=== PATIENT | female | born 1940 | race Caucasian/White ===

== ENCOUNTER 2021-06-18 09:30 | Outpatient (RCR) | payer MEDICARE, OTHER, SELFPAY ==
--- NOTE | 2021-05-10 14:23 | PTOPEVAL ---
Thank you for referring Sandy Harding to [facility].? The patient is scheduled to be seen for therapy? 2x/week for 4-6 weeks. Please review, sign, date and return this plan of care WILBERT. I agree with and certify that the following plan of care is medically necessary. Referring Physician Date Admitting Provider: Attending Provider: Renetta Herman, Referring Provider: *PT Outpatient Evaluation Start: 05/10/21 09:56 Freq: Status: Active Protocol: Document 05/10/21 10:03 AW (Rec: 05/10/21 10:17 AW [id number]) Therapy Assessment Status Assessment Status Assessment Status Evaluation Outpatient Past Medical History Past Medical History Source of Past Medical History Patient Other History Hx Cancer Yes: L lumpectomy 14 years ago Evaluation Information Problem Diagnosis R LE radicular pain Onset ~1 year ago Additional Evaluation Detail Pt states that her pain started ~1 year ago but has gotten more frequent. She states that the pain starts at her low back and will travel down her R leg. Subjective Information aggravating factors: lifting Query Text:As Reported By Patient/ boxes, stairs (increased reps) Family , walking around grocery store causes some soreness at the end of day, uses ice at the end of the day goes sideways down the stairs due to recent pain Diagnostic Tests X-Rays For This Problem Yes: no results yet per pt report MRI For This Problem Yes: no results yet per pt report Pain Assessment Timing of Pain Assessment Timing of Pain Assessment Pre-Treatment Pain Scale Pain Scale Used Numeric (1 - 10) Self Report Pain Assessment Lower Back Reported Pain Level 3 Pain Description Aching Pain Score Pain Score 3: Self Report Interventions Used Interventions Used By Clinicians Exercise Lower Extremity Range of Motion General Lower Extremity Range of Motion Gross Lower Extremity Range of Motion hip flexion limited due to Comments pain bilaterally Lower Extremity Muscle Strength Testing General Lower Extremity Strength Gross Lower Extremity Strength 4+/5 B with the exception of hip extension which is 3/5. Muscle Length Testing Muscle Length Testing Piriformis w/Hip Neutral (R) Moderate Tightness,(L) Moderate Tightness Left Hamstring Length -22 Query Text:(90
--- NOTE | 2021-06-25 09:00 | PCPTNOTE ---
Admitting Provider: Attending Provider: Renetta Herman, Patient:Sandy Harding Date of :1940 PHYSICAL THERAPY DISCHARGE SUMMARY Sandy has been seen for 6 PT visits since initial evaluation. She has demonstrated improvements in her overall strength and mobility and reports that she feels comfortable being discharged from skilled PT at this time. WOMAC score at discharge: 6.25%, compared to 44% at initial evaluation. She reports that she has not been having any pain but does have muscle fatigue after doing a lot of activity such as grocery shopping and carrying objects up/down the stairs. She continues to have B hip extension weakness and was educated on performing exercises daily to continue to improve her strength and endurance. She was invited to call with any questions/concerns regarding HEP. The goals have been partially met. Thank you for referring this patient to [facility]. Please review, sign, date and return this discharge summary WILBERT. I have been updated about the patient's current status and I agree with discharge from the above service at this time. Referring Physician Date
== END 2021-07-04 08:16 | disposition home or self-care (01) ==
LOC: ANHHIPT 09:30
PROVIDERS: PCP Neurological Surgery; Visit Provider Neurological Surgery
DX: M79.604 Pain in right leg (principal)
CPT/HCPCS: 97110; 97140; 97162; 97530

== ENCOUNTER 2024-11-15 08:45 | Outpatient (CLI) | payer MEDICARE, SELFPAY ==
[2024-11-15 10:48] LABS: Prothrombin Time 13.2 Seconds (11.1-14.7)
[2024-11-15 10:49] LABS: Partial Thromboplastin Time 28.7 Seconds (22.3-36.8)
[2024-11-15 11:16] LABS: Urine Cotinine NEGATIVE
== END 2024-11-15 08:46 | disposition home or self-care (01) ==
PROVIDERS: Anesthesiology; PCP Physician Assistant Medical; Visit Provider Orthopaedic Surgery
DX: M17.11 Unilateral primary osteoarthritis, right knee (principal); N18.31 Chronic kidney disease, stage 3a; Z01.812 Encounter for preprocedural laboratory examination
CPT/HCPCS: 36415; 80307; 85610; 85730; 87081

== ENCOUNTER 2024-11-17 13:51 | Outpatient (CLI) | payer MEDICARE, SELFPAY ==
--- NOTE | ~2024-11-17 | US_ITS ---
Renal-Bladder ultrasound Clinical History: Chronic kidney disease Technique: Real-time sonographic imaging of the kidneys and urinary bladder was performed. Findings: The right kidney measures 10.8 cm in length and the left kidney measures 9.8 cm. There is n o hydronephrosis. 15 mm nonobstructing right renal stone present. Renal cortical echogenicity is with in normal limits. No renal mass lesion is identified. The urinary bladder is moderately distended at the time of this exam. No intraluminal echoes are iden tified. No abnormal wall thickening is seen. Impression: 15 mm nonobstructing right renal stone. Reviewed, dictated and finalized at location . Impression: 15 mm nonobstructing right renal stone.
== END 2024-11-17 13:52 | disposition home or self-care (01) ==
LOC: MICIMG 13:52
PROVIDERS: PCP Physician Assistant Medical; Visit Provider Internal Medicine Nephrology
DX: N18.31 Chronic kidney disease, stage 3a (principal); N20.0 Calculus of kidney
CPT/HCPCS: 76775

== ENCOUNTER 2024-11-22 09:56 | Outpatient (CLI) | payer MEDICARE, SELFPAY ==
--- NOTE | ~2024-11-22 | NM_ITS ---
EXAMINATION: NM priscilla stress w perfusion DATE: 11/23/2024 7:20 CDT INDICATION: Preprocedural cardiac examination TECHNIQUE: Rest images were obtained following intravenous administration of 10.2 mCi Tc99m tetrofosm in (Myoview). The patient was infused intravenously with Lexiscan (regadenoson). Then, 32.4 mCi Tc99m tetrofosmin (Myoview) was administered intravenously, and stress images were obtained. Data was bridget nstructed into short axis and horizontal and vertical long axis SPECT images. Gated SPECT images were also obtained. COMPARISON: None. FINDINGS: There is a moderate-sized perfusion abnormality of the lateral wall extending to the apex w hich is partially reversible along its margin.. There is no segmental wall motion abnormality. Left ventricular ejection fraction measures 75%. IMPRESSION: 1. Moderate-sized partially reversible perfusion abnormality centered in the lateral wall, consistent with infarction. 2. Normal left ventricular ejection fraction measuring 75%. Reviewed, dictated and finalized at location A. IMPRESSION: 1. Moderate-sized partially reversible perfusion abnormality centered in the la teral wall, consistent with infarction. 2. Normal left ventricular ejection fraction measuring 75%.
--- OUTSIDE RECORDS SUMMARY | 2024-11-22 10:03 | XMS_ITS | Continuity of Care Document ---
Author Organization [employer] [facility] Address [address] [place] [address] Phone Care Team Providers Care Investment Broker Name Role Phone Ximena García Unavailable Unavailable [...] Providers Copied on Encounter Office/outpat ient Visit, [facility], [address] [place] [address] [address], [place], [place], [address], tel:[phone] [facility] No Information 9-201 0 Raquel Rich [address] , [address], [place], [place], [facility], . tel:[phone] Office/outpat ient Visit, [facility], [address] [place] [address] [address], [place], [place], [address], tel:[phone] [facility] No Information -201 0 Raquel Rich [address] , [address], [place], [facility], . tel:[phone] Referring Provider: Ximena Kidd, [address], [place], [facility]. tel:[phone] [facility], [address] [place] [address] [address], [place], [place], [address], tel:[phone] [facility] No Information 3-201 0 Raquel Rich [address] , [address], [place], [facility], . tel:[phone] Referring Provider: Ximena Kidd, [address], [place], [facility]. tel:[phone] Office/outpat ient Visit, [facility], [address] [place] [address] [address], [place], [place], [address], tel:[phone] [facility] No Information Feb-2 0-200 9 Raquel Rich [address] , [address], [place], [facility], . tel:[phone] [facility], [address], [place], [place], [address], [place] tel:[phone] [facility] No Information 9 Raquel Bueno. [address] , [address], [place], [facility], . tel:[phone] Referring Provider: Ximena Kidd, [address], [place], [facility]. tel:[phone] [facility], [address] [place] [address] [address], [place], [place], [address], [place] tel:[phone] [facility] No Information 9 Raquel Bueno. [address] , [address], [place], [facility], . tel:[phone] Referring Provider: Ximena Kidd, [address], [place], [facility]. tel:[phone] [facility], [address], [place], [place], [address], [place] tel:[phone] [facility] No Information 9 Raquel Bueno. [address] , [address], [place], [facility], [place]. tel:[phone] Referring Provider: Ximena Kidd, [address], [place], [facility]. tel:[phone] Office/outpat ient Visit, [facility], [address], [place], [place], [address], [place] tel:[phone] [facility] No Information 8 Raquel Bueno. [address] , [address], [place], [facility], [place]. tel:[phone] [facility], [address], [place], [place], [address], [place] tel:[phone] [facility] No Information 200 8 Raquel Bueno. [address] , [address], [place], [facility], . tel:[phone] Referring Provider: Ximena Kidd, [address] [facility] [address], [place], [facility]. tel:[phone] [facility], [address] [place] [address] [address], [place], [place], [address], [place] tel:[phone] [facility] No Information 8 Raquel Bueno. [address] , [address], [place], [facility], [place]. tel:[phone] Referring Provider: Ximena Kidd, [address] [facility] [address], [place], [facility]. tel:[phone] [facility], [address], [place], [place], [address], [place] tel:[phone] [facility] No Information 8 Raquel Bueno. [address] , [address], [place], [facility], [place]. tel:[phone] Referring Provider: Xmiena Kidd, [address] [facility] [address], [place], [facility]. tel:[phone] Office/outpat ient Visit, Est [facility], [address], [place], [place], [address], [place] tel:[phone] [facility] No Information 2200 7 Raquel Bueno. [address] , [address], [place], [facility], [place]. tel:[phone] [facility], [address], [place], [place], [address], [place] tel:[phone] [facility] No Information 7 Raquel Bueno. [address] , [address], [place], [address], . tel:[phone] Referring Provider: Ximena Kidd, [address], [place], [facility]. tel:[phone] [facility], [address], [place], [place], [address], tel:[phone] [facility] No Information 7 Raquel Bueno. [address] , [address], [place], [address], . tel:[phone] Family History Family Member Type Diagnosis Age At Onset No Information Payers Payer name Insurance type Covered democrat ID Authoriza tion(s) [place] CI [id number] [facility] CI [id number] Social History Type Description Quantity Date Captured [...]
--- NOTE | 2024-11-22 10:16 | EST_ITS ---
Patient Info Name: Sandy Harding Age: 84 years : 1940 Gender: Female Ht: 61 in Wt: 146 lbs BSA: 1.71 m2 HR: 72 bpm BP: 166 / 83 mmHg Exam Date: 11/22/2024 10:16 AM Patient Status: O Admit Date: 11/22/2024 Exam Type: CA stress priscilla w NM A regadenoson stress test was performed. Staff Referring Physician: Richard Noble DO Attending Provider: Richard Noble DO Exercise Technologist: Stephenie Isabel Exercise Physician: Richard Noble DO Summary 1. 1. Negative lexiscan stress test for ischemic ST changes by ECG criteria. 2. 2. Baseline hypertension. 3. 3. Nuclear scan to follow and will be reported separately. Please correlate with it. 4. 4. Patient informed of the above results. Protocol: Lexiscan Stress ECG Details Stage: REST Duration (min): 0 min : 28 sec HR (bpm): 68 SBP (mmHg): --- DBP (mmHg): --- Stage: REST Duration (min): 6 min : 25 sec HR (bpm): 70 SBP (mmHg): 166 DBP (mmHg): 83 Stage: STAGE 1 Duration (min): 1 min : 0 sec HR (bpm): 104 SBP (mmHg): 206 DBP (mmHg): 72 Stage: RECOVERY Duration (min): 1 min : 0 sec HR (bpm): 95 SBP (mmHg): 206 DBP (mmHg): 72 Stage: RECOVERY Duration (min): 2 min : 0 sec HR (bpm): 90 SBP (mmHg): 206 DBP (mmHg): 72 Stage: RECOVERY Duration (min): 3 min : 0 sec HR (bpm): 90 SBP (mmHg): 206 DBP (mmHg): 72 Stage: RECOVERY Duration (min): 3 min : 46 sec HR (bpm): 88 SBP (mmHg): 177 DBP (mmHg): 74 Rest HR: 70 bpm Peak HR: 104 bpm Rest Sys BP: 166 mmHg Peak Sys BP: 206 mmHg Max Pred HR: 138 bpm % Max Pred HR: 75 % Target HR: 117 bpm Max RPP: 21,424 bpm*mmHg Termination Reason: Completed protocol Cardiac Symptoms: Shortness of breath Total Time: 1 min : 0 sec Rest Holman BP: 83 mmHg Peak Holman BP: 72 mmHg Total Dose: 0.4 mg Resting ECG Sinus rhythm. Stress ECG No ST changes. Arrhythmias None. Report Signatures
== END 2024-11-22 09:57 | disposition home or self-care (01) ==
PROVIDERS: PCP Physician Assistant Medical; Visit Provider Internal Medicine Cardiovascular Disease
DX: Z01.810 Encounter for preprocedural cardiovascular examination (principal); R94.39 Abnormal result of other cardiovascular function study
CPT/HCPCS: 78452; 93017; A9502; J2785

== ENCOUNTER 2024-12-30 11:38 | Outpatient (CLI) | payer MEDICARE, SELFPAY ==
--- OUTSIDE RECORDS SUMMARY | 2024-12-30 11:53 | XMS_ITS | Continuity of Care Document ---
Author Organization [facility] Address [address] [place] [address] Phone Care Team Providers Care Hydroelectric Production Technician Name Role Phone Ximena García Unavailable Unavailable [...] Providers Copied on Encounter Office/outpat ient Visit, [facility], [address] [place] [address] [address], [place], [place], [id number], tel:[phone] [facility] No Information 9-201 0 Raquel Rich [address] , [address], [place], [place], [facility], . tel:[phone] Office/outpat ient Visit, [facility], [address] [place] [address] [address], [place], [place], [id number], tel:[phone] [facility] No Information -201 0 Raquel Rich [address] [facility] , [address], [place], [place], [facility], . tel:[phone] Referring Provider: Ximena Kidd, [address] [facility] [address], [place], [place], [facility]. tel:[phone] [facility], [address] [place] [address] [address], [place], [place], [id number], tel:[phone] [facility] No Information 3-201 0 Raquel Rich [address] [facility] , [address], [place], [place], [facility], . tel:[phone] Referring Provider: Ximena Kidd, [address], [place], [facility]. tel:[phone] Office/outpat ient Visit, [facility], [address] [place] [address] [address], [place], [place], [address], tel:[phone] [facility] No Information Feb-2 0-200 9 Raquel Rich [address] [facility] , [address], [place], [place], [facility], . tel:[phone] [facility], [address], [place], [place], [address], [place] tel:[phone] [facility] No Information 9 Raquel Bueno. [address] , [address], [place], [facility], . tel:[phone] Referring Provider: Ximena Kidd, [address], [place], [facility]. tel:[phone] [facility], [id number] [place] [address] [address], [place], [place], [id number], [place] tel:[phone] [facility] No Information 9 Raquel Bueno. [address] , [address], [place], [facility], . tel:[phone] Referring Provider: Ximena Kidd, [address], [place], [facility]. tel:[phone] [facility], [address], [place], [place], [address], [place] tel:[phone] [facility] No Information 9 Raquel Bueno. [address] , [address], [place], [facility], [place]. tel:[phone] Referring Provider: Ximena Kidd, [address], [place], [facility]. tel:[phone] Office/outpat ient Visit, [facility], [address], [place], [place], [address], [place] tel:[phone] [facility] No Information 8 Raquel Bueno. [address] , [address], [place], [facility], [place]. tel:[phone] [facility], [address], [place], [place], [address], [place] tel:[phone] [facility] No Information [address] Raquel Bueno. [address] [facility] , [address], [place], [facility], . tel:[phone] Referring Provider: Ximena Kidd, [address] [facility] [address], [place], [facility]. tel:[phone] [facility], [address] [place] [address] [address], [place], [place], [address], [place] tel:[phone] [facility] No Information 8 Raquel Bueno. [address] [facility] [address] , [address], [place], [facility], [place]. tel:[phone] Referring Provider: Ximena Kidd, [address] [facility] [address], [place], [facility]. tel:[phone] [facility], [address], [place], [place], [address], [place] tel:[phone] [facility] No Information 8 Raquel Bueno. [address] [facility] [facility] [address] [address] , [address], [place], [facility], [place]. tel:[phone] Referring Provider: Ximena Kidd, [address] [facility] [address], [place], [facility]. tel:[phone] Office/outpat ient Visit, Est [facility], [address], [place], [place], [address], [place] tel:[phone] [facility] No Information [address] Raquel Bueno. [address] [facility] [facility] [address] [address] , [address], [place], [facility], [place]. tel:[phone] [facility], [address], [place], [place], [address], [place] tel:[phone] [facility] No Information 7 Raquel Bueno. [address] [facility] [facility] [address] , [address], [place], [address], . tel:[phone] Referring Provider: Ximena Kidd, [address], [place], [facility]. tel:[phone] [facility], [address], [place], [place], [id number], tel:[phone] [facility] No Information 7 Raquel Bueno. [address] [facility] [address] , [address], [place], [address], . tel:[phone] Family History Family Member Type Diagnosis Age At Onset No Information Payers Payer name Insurance type Covered libertarian ID Authoriza tion(s) [place] [id number] [facility] CI [id number] Social History Type Description Quantity Date Captured [...]
--- OUTSIDE RECORDS SUMMARY | 2024-12-30 11:53 | XMS_ITS | Clinical Summary ---
Author Organization [facility] Address [facility] [place] [address] Care Team Providers Care Internet Marketing Strategist Name Role Phone Cherie Cruz PA-C Primary Care Provider [phone]- [phone] Family History Medical History Relation Comments Breast [...] Recently Relevant to Health Maintenance Insurance MEDICARE [facility] HEALTH AND LIFE INSURANCE [facility] Care Teams Internet Marketing Strategist Relationship Specialty Start Date End Date Cherie Cruz PA-C [address] [place] [address] [address] [place] [address] PCP - General PHYSICIAN BILL RECAPITULATION CLERK 08/02/22
[2024-12-30 15:10] LABS: Hemoglobin A1C 6.5 % (<5.7)
== END 2024-12-30 11:39 | disposition home or self-care (01) ==
PROVIDERS: PCP Physician Assistant Medical; Visit Provider Orthopaedic Surgery
DX: M17.11 Unilateral primary osteoarthritis, right knee (principal); Z01.818 Encounter for other preprocedural examination
CPT/HCPCS: 36415; 83036; 86850; 86900; 86901

== ENCOUNTER 2025-01-07 13:24 | Inpatient (IN) | payer MEDICARE, SELFPAY ==
--- NOTE | 2024-11-15 08:54 | PC.NURSE ---
Report to the Outpatient Waiting Room, entrance under the green pavilion located off [facility], at time ___6 am____ on date __12/02/24 . Planned Procedure Time: _7:30 am .? Time changes happen often and if your time is changed the preop area will call you the afternoon before. - You and your visitor will be asked to self-screen and do not enter if you have any COVID symptoms. Please call surgeon if you need to reschedule. - A mask is optional within the hospital at this time. Patients may have clear liquids (water, carbonated beverages, clear teas, apple juice) until 3 hours prior to surgery ( 4:30 am) with a maximum of 20 ounces. - No food from midnight until time of surgery and no smoking, or chewing tobacco (or any form of nicotine). No chewing gum, candy or mints. - I Take only the following medications with a SIP of water on the morning of surgery: ___AMLODIPINE DO NOT STOP ANY OF YOUR OTHER PRESCRIPTION MEDICATIONS PRIOR TO SURGERY EXCEPT THE FOLLOWING Hold all vitamins and supplements for 3 days per anesthesiologist.LAST DOSE 11/28/24 Medications to discontinue per physician NONE MAY TAKE TYLENOL IF NEEDED FOR PAIN Please no make-up, nail macedonian, hairspray, perfume, deodorant, or body powder the day of surgery.? No jewelry (including any body piercings) or valuables the day of surgery, leave them at home.? Please take a shower or bath the night before, or the morning of, surgery with an antibacterial soap.? Wear comfortable, loose fitting clothing.? Children are encouraged to wear pajamas. - Jewelry must be removed prior to entering the operating room.? Rings and piercings that are not removed may be cut off. - The hospital will not accept responsibility for valuables.? - Please leave all valuables, including medications, at home the day of surgery. If you are going home after surgery, a licensed mechanic driver must drive you home.? - NO public transportation without another adult if you receive anesthesia. - We recommend that an adult stay with you for 24 hours following discharge. - We also recommend that you do not drive, make important decision, drink alcoholic beverages, or take any drugs that were not prescribed by your health care provider for at least 24 hours after your discharge time. For Pediatric surgeries, we recommend two adults accompany the child home. Follow any additional instructions given to you from your surgeon. VERBAL AND WRITTEN instructions given to _PATIENT_AND SPOUSE and asked if any additional questions and then verbalized understanding. Patient advised to call surgeon office or pre surgery nurse liaison [phone] if any additional questions.
[2024-11-15 08:57] VITALS: BMI 28.3
[2024-11-15 09:48] VITALS: BP 141/68; PULSE 70; RESP 18; TEMP 36.7; O2SAT 98
--- OUTSIDE RECORDS SUMMARY | 2024-12-02 01:06 | XMS_ITS | Data Portability ---
Author Organization [place] [facility] [employer], Main Office Address [address] [place] [address] Care Team Providers Care Deputy Clerk Name Role Phone GEETA MUNOZ Primary Care Provider GEETA MUNOZ Referring Provider [phone] Assessment Encounter Date Assessment Date Assessment LastModified by Organization Details LastModified Time 09/02/2022 09/02/2022 HPI: Patient returns. She is here for cortisone injection both her knees. Last shots 3 months ago. She has moderate medial compartment osteoarthritis in the right knee and fozx-lw-jknlfhcs in the left. She gets good relief from the injections. Physical exam: 82-year-old female alert pleasant. She has mild effusions of both knees. Range of motion is from 0-135 degrees bilaterally. Mild tenderness over both medial joint lines. ChloraPrep was used on skin 20 mg Kenalog and 3 cc of 0.5% ropivacaine was injected into both knees. Risk infection discussed. Impression: 82-year-old female who has osei-qu-vxnyvkeb medial compartment osteoarthritis in both knees. She continues to good relief from injections. She will call when she feels she needs additional injections. Not available 09/02/2022 18:06:41 01/08/2023 01/08/2023 Patient returns. She would like cortisone shots in her knees again. She has been noticing more symptoms over the last month. She last had cortisone injections mid August. Her symptoms are anteromedial knee pain on both sides. She remains active. She mows her lawn with a push more. On exam today she is 5 ft 1 in in height 164 lb BMI of 31. She rates her pain at 4/10. She has range of motion of both knees from 5-135 degrees today mild tenderness over both medial joint lines. Risk of side effects including risk of infection were discussed. Affect her blood sugars may go up for a few days was discussed. After ChloraPrep prep, 20 mg of Kenalog and 4 cc 0.5% ropivacaine were injected into both knees out difficulty. She would like to follow-up again on an as-needed basis. [email or web address] Not available 01/08/2023 19:30:27 05/02/2023 05/02/2023 HPI: Patient returns. She is here for cortisone injection both her knees. Last shot was 4 months ago. She is getting about 3 months good relief from the injections. She has moderately severe medial compartment osteoarthritis the right knee and moderate in the left. She wished to have additional injections today. Physical exam: 83-year-old female alert pleasant. She has range of motion of 0-135 degrees bilaterally. Mild tenderness over both medial joint lines palpation. No lateral joint line tenderness. No increased swelling in either lower extremity. She is walking well today without limp or assistance. After ChloraPrep used on skin 20 mg Kenalog and 3 cc of% ropivacaine was injected into both knees. Risk infection discussed. Impression: 83-year-old female has right greater than left medial compartment osteoarthritis in her knees. Shots continue to give her good benefit. She will call when she feels she needs additional injection. Not available 05/02/2023 15:40:18 Plan of Treatment Reminders Order Date Submit Date Provider Last Modified By Organization Details Last Modified Time Details Appointments None recorded. Lab None recorded. Referral None recorded. Procedures injection/a spiration joint/bursa (PROC) - in office procedure, administere d by provider 2022 023 In-Office Order, Internal Use Only DO Not Attach Compendium DO Not Attach Compendium, Do Not Delete/merge, [id number] 14:17:47 injection/a spiration joint/bursa (PROC) - in office procedure, administere d by provider 2022 023 In-Office Order, Internal Use Only DO Not Attach Compendium DO Not Attach Compendium, Do Not Delete/merge, [id number] 3 11:13:20 injection/a spiration joint/bursa (PROC) - in office procedure, administere d by provider 2022 023 [email or web address] In-Office Order, Internal Use Only DO Not Attach Compendium DO Not Attach Compendium, Do Not Delete/merge, [id number] 16:55:05 Surgeries None recorded. Imaging XR, knee 2022 023 [email or web address] [facility] [place], [address], [place], [address], 3 09:28:14 Medication Orders Kenalog 10 mg/mL suspension for injection 2022 023 [place] [address], [address] [place] [address], [address], 3 15:45:52 ropivacaine (PF) 5 mg/mL (0.5 %) injection solution 2022 023 [place] [address], [address] [place] [address], [address], 3 15:45:52 Kenalog 10 mg/mL suspension for injection 2022 023 [place] [address], [address] [place] [address], [address], 3 12:57:24 ropivacaine (PF) 5 mg/mL (0.5 %) injection solution 2022 023 [place] [address], [address] [place] [address], [address], 3 12:57:24 Kenalog 10 mg/mL suspension for injection 2022 023 [place] [address], [address] [place] [address], [address], 3 10:50:57 ropivacaine (PF) 5 mg/mL (0.5 %) injection solution 2022 023 [email or web address], [address], [place], [address], 10:50:57 Patient TargetsNo targets recorded. Patient InstructionsNo instructions recorded. Reason for Referral None Reported. Results Created Date Observation Date Name Description Value Unit Range Abnormal Flag Note LastModifiedBy Organization Detail LastModifiedTime 12/13/19 22 XR, knee No observ ation record ed. [id number] [facility] [place] [address], [place], [address], 07/17/2022 15:56:07 01/09/20 23 XR, knee No observ ation record ed. [email or web address] [facility] [place] [address], [place], [address], 01/08/2023 19:28:41 Result Notes None recorded. Problems Name Problem SNOMED Code Status Onset Date Resolution Date Notes Provider Name and Address Organization Details Recorded Time Osteoarthr itis of knee 431176567 Active Not Available [facility] 3 15:54:51 Osteoarthr itis 831328259 Active 2021 Not Available [facility] 3 15:54:51 Bilateral osteoarthr itis of knees 4232131273884 07 Active 2022 LUANNE Hewitt, [place] [facility] 3 16:53:48 Problem Notes None recorded. Procedures Surgical History Date Name Laterality Status Provider Name and Address Organization Details Recorded Time 8 Unlisted procedure breast completed Not Available [facility] 07/17/2022 15:54:10 8 Breast Biopsy completed Not Available [facility] 2022 15:54:10 0 Ingrown Toenail completed Not Available [facility] 07/17/2022 15:54:10 Imaging Results None recorded. Procedure Notes None recorded. Medical Equipment None Reported. Medications Name Sig Start Date Stop Date Status Note LastModified by Organization Details LastModified Time cyclobenzap rine 10 mg tablet active Not Available Not Available Not Available latanoprost 0.005 % eye drops INSTILL 1 DROP INTO EACH EYE AT BEDTIME active Not Available Not Available No t Available anastrozole 1 mg tablet 08/02 completed Not Available Not Available Not Available amlodipine 2.5 mg tablet 08/02 completed Not Available Not Available Not Available amlodipine 5 mg tablet TAKE 1 TABLET BY MOUTH ONCE DAILY active Not Available Not Available No t Available Kenalog 10 mg/mL suspension for injection in office 2022 active NDC: 0003- 0494- 20 Not Available Not Available Not Available meclizine 25 mg tablet TAKE 1 TABLET BY MOUTH THREE TIMES DAILY NEEDED active Not Available Not Available No t Available Xylocaine 20 mg/mL (2 %) injection solution In office injection administe red by the provider 05/29 completed Not Available Not Available Not Available losartan 100 mg tablet TAKE 1 TABLET BY MOUTH ONCE DAILY active Not Available Not Available No t Available metformin ER 500 mg tablet,exte nded release 24 hr TAKE 2 TABLETS BY MOUTH TWICE DAILY active Not Available Not Available No t Available Denta 5000 Plus 1.1 % cream USE AFTER BRUSHING AND FLOSSING, BRUSH ON ONCE DAILY IN THE EVENING FOR 1 MINUTES. DO NOT EAT/DRINK FOR 30 MINUTES AFTER USE. active Not Available Not Available No t Available rosuvastati n 5 mg tablet TAKE 1 TABLET BY MOUTH ONCE DAILY active Not Available Not Available No t Available Lehr 3 2020 active Not Available Not Available Not Avai lable Super B Complex-Vit hansen C 2020 active Not Available Not Available Not Avai lable lidocaine (PF) 10 mg/mL (1 %) injection solution In office injection administe red by the provider 08/08 completed NDC: 0409- 4276- 17 Not Available Not Available Not Available lidocaine (PF) 5 mg/mL (0.5 %) injection solution In office injection administe red by the provider 05/29 completed Not Available Not Available Not Available Travatan Z 0.004 % eye drops INSTILL 1 DROP INTO EACH EYE IN THE EVENING 08/02 completed Not Available Not Available Not Available hydrochloro thiazide 12.5 mg tablet TAKE 1 TABLET BY MOUTH ONCE DAILY active Not Available Not Available No t Available [facility] Bi-Flex 2020 active Not Available Not Available Not Avai labhelene ropivacaine (PF) 5 mg/mL (0.5 %) injection solution in office 2022 active Not Available Not Available Not Avai labhelene Vitals Date Recorded Body height Provider Name an d Address Organization Details Last Updated DateTime 05/29/2022 157.48 cm Not Available [facility] 15:54:37 Date Recorded Body height Provider Name an d Address Organization Details Last Updated DateTime 09/02/2022 157.48 cm Shandra Son Vin [employer] 09/02/2022 16:53:27 Date Recorded Body mass index (BMI) Body height Body weight Provider Name and Address Organization Details Last Updated DateTime 12/12/2021 30 kg/m2 157.48 cm 69879.15 g Not Available [facility] 07/17/2022 15:54:38 Date Recorded Body height Body mass index (BMI) Body weight Provider Name and Address Organization Details Last Updated DateTime 01/08/2023 154.94 cm 31 kg/m2 01632.15 g Shandra Son [facility] [employer] 01/08/2023 11:15:58 Date Recorded Body height Provider Name an d Address Organization Details Last Updated DateTime 05/02/2023 154.94 cm Shandra Huy [facility] [employer] 05/02/2023 14:16:18 Social History Question Answer Notes LastModified by Organizat ion Details LastModified Time Tobacco Smoking Status Never Smoker Not Available [facility] 07/17/2022 15:54:01 What Was The Date Of Your Most Recent Tobacco Screening? 08/11/2020 [id number] Information not available 07/17/2022 Sex: Unknown Functional Status Question Answer Note LastModified by Organization D etails LastModified Time What is your level of alcohol consumption? None [email or web address] Information not available 01/08/2023 Mental Status None recorded. Family History Relationship Description Onset Age of this Age Resolved Age Notes LastModified by Organization Details LastModified Time Sister Family history of malignant neoplasm [id number] Not available 07/17/2022 15:54:11 Brother Diabetes mellitus [id number] Not available 07/17/2022 15:54:11 Medical History Condition Response DIABETES, TYPE CANCER: SPECIFY Y Gynecological HistoryNo gynecological history recorded. Obstetrics History GPAL:G 0 P 0 0 0 0 Past Encounters Encounter ID Performer Location Encounter Start Date Encounter Closed Date Diagnosis/Indication Diagnosis SNOMED-CT Code Diagnosis ICD10 Code Diagnosis Note [id number] Zi Andersen MD [facility] [place] [address] [place] [address] 08/11/2020 00:00:00 08/11/2020 11:29:33 [id number] MD KAILEY Noel_[facility] [place] [address] [place] [address] 12/25/2020 00:00:00 12/25/2020 15:05:14 [id number] MD KAILEY Noel_[facility] [place] [address] [place] [address] 03/16/2021 00:00:00 03/17/2021 10:02:22 [id number] Zi Andersen MD [facility] [place] [address] [place] [address] 08/08/2021 00:00:00 08/08/2021 11:58:22 [id number] Zi Andersen MD [facility] [place] [address] [place] [address] 12/12/2021 00:00:00 12/12/2021 11:36:32 [id number] Zi Andersen MD [facility] [place] [address] [place] [address] 05/29/2022 00:00:00 05/29/2022 08:51:38 [id number] MD KAILEY Noel_[facility] [place] [address] [place] [address] 09/02/2022 16:43:15 09/02/2022 18:12:58 Bilateral osteoarthritis of knees 0668038393 42558 M17.0 [id number] MD KAILEY Noel[facility] [place] [address] [place] [address] 01/08/2023 10:50:15 01/09/2023 09:28:13 Bilateral osteoarthritis of knees 5535825368 53494 M17.0 [id number] Zi Andersen MD [facility] [place] [address] [place] [address] 05/02/2023 14:11:47 05/05/2023 11:10:06 Bilateral osteoarthritis of knees 8831240865 21363 M17.0 Health Concerns Section Related Observation LastModified by Organization Detai ls LastModified Time None Recorded Concern Status LastModified by Organization Details LastModified Time None Recorded Advance Directives Directive None Recorded Payers Insurance Date Sequence Insurance Name Policy Number Policy Fay Covered Member ID Fay Member ID Guarantor Name 05/08/2023 1 [employer] - GOLD PLUS (MEDICARE REPLACEMENT/A DVANTAGE - HMO) Sandy Harding [id number] Sandy Harding OBGyn Episode No OBEpisode recorded.
--- OUTSIDE RECORDS SUMMARY | 2024-12-02 01:06 | XMS_ITS | Continuity of Care Document ---
Author Organization [facility] Address [address] [place] [address] Phone Care Team Providers Care Wire Harness Assembler Name Role Phone Ximena García Unavailable Unavailable [...] Providers Copied on Encounter Office/outpat ient Visit, [facility], [address] [place] [address] [address], [place], [place], [id number], tel:[phone] [facility] No Information 9-201 0 Raquel Rich [address] [facility] [address] [facility] , [address], [place], [place], [facility], . tel:[phone] Office/outpat ient Visit, [facility], [address] [place] [address] [address], [place], [place], [id number], tel:[phone] [facility] No Information -201 0 Raquel Rich [address] [facility] , [address], [place], [facility], . tel:[phone] Referring Provider: Ximena Kidd, [address] [facility] [address], [place], [facility]. tel:[phone] [facility], [address] [place] [address] [address], [place], [place], [id number], tel:[phone] [facility] No Information 3-201 0 Raquel Rich [address] [facility] , [address], [place], [facility], . tel:[phone] Referring Provider: Ximena Kidd, [address], [place], [facility]. tel:[phone] Office/outpat ient Visit, [facility], [address] [place] [address] [address], [place], [place], [address], tel:[phone] [facility] No Information Feb-2 0-200 9 Raquel Rich [address] [facility] , [address], [place], [facility], . tel:[phone] [facility], [address], [place], [place], [address], [place] tel:[phone] [facility] No Information 9 Raquel Bueno. [address], [place], [facility], . tel:[phone] Referring Provider: Ximena Kidd, [address], [place], [facility]. tel:[phone] [facility], [address] [place] [address] [address], [place], [place], [address], [place] tel:[phone] [facility] No Information 9 Raquel Bueno. [address] , [address], [place], [facility], . tel:[phone] Referring Provider: Ximena Kidd, [address], [place], [facility]. tel:[phone] [facility], [address], [place], [place], [id number], [place] tel:[phone] [facility] No Information 9 Raquel Bueno. [address] , [address], [place], [facility], [place]. tel:[phone] Referring Provider: Ximena Kidd, [address], [place], [facility]. tel:[phone] Office/outpat ient Visit, Est [facility], [address], [place], [place], [id number], [place] tel:[phone] [facility] No Information 8 Raquel Bueno. [address] , [address], [place], [facility], [place]. tel:[phone] [facility], [address], [place], [place], [address], [place] tel:[phone] [facility] No Information 200 8 Raquel Bueno. [address] [facility] , [address], [place], [facility], . tel:[phone] Referring Provider: Ximena Kidd, [address] [facility] [address], [place], [facility]. tel:[phone] [facility], [address] [place] [address] [address], [place], [place], [address], [place] tel:[phone] [facility] No Information 8 Raquel Bueno. [address] [facility] , [address], [place], [facility], [place]. tel:[phone] Referring Provider: Ximena Kidd, [address] [facility] [address], [place], [facility]. tel:[phone] [facility], [address], [place], [place], [address], [place] tel:[phone] [facility] No Information 8 Raquel Bueno. [address] [facility] , [address], [place], [facility], [place]. tel:[phone] Referring Provider: Ximena Kidd, [address] [facility] [address], [place], [facility]. tel:[phone] Office/outpat ient Visit, [facility], [address], [place], [place], [address], [place] tel:[phone] [facility] No Information 2200 7 Raquel Bueno. [address] [facility] , [address], [place], [facility], [place]. tel:[phone] [facility], [address], [place], [place], [address], [place] tel:[phone] [facility] No Information 7 Raquel Bueno. [address] [facility] , [address], [place], [address], . tel:[phone] Referring Provider: Ximena Kidd, [address], [place], [facility]. tel:[phone] [facility], [address], [place], [place], [address], tel:[phone] [facility] No Information 7 Raquel Bueno. [address] [facility] , [address], [place], [address], . tel:[phone] Family History Family Member Type Diagnosis Age At Onset No Information Payers Payer name Insurance type Covered republican ID Authoriza tion(s) [place] [id number] [facility] CI [id number] Social History Type Description Quantity Date Captured [...]
--- OUTSIDE RECORDS SUMMARY | 2024-12-02 01:06 | XMS_ITS | Clinical Summary ---
Author Organization [facility] Address [facility] [place] [address] Care Team Providers Care Glove Turner And Former Automatic Name Role Phone Cherie Cruz PA-C Primary Care Provider +1- [phone] Family History Medical History Relation Comments Breast Cancer Sister 1 Breast Cancer Sister 2 Relation Status Comments Sister 1 Sister 2 Social History Tobacco Use Types Packs/Day Years Used Date Smoking Tobacco: Never Assessed Comments Unknown Sex and Gender Information Value Date Recorded Sex Assigned at Not on file Legal Sex Female 6:00 PM CDT Gender Identity Not on file Sexual Orientation Not on file Plan of Treatment Health Maintenance Due Date Last Done Comments DTaP, Tdap and Td Vaccines ( 1 - Tdap) 1961 Pneumococcal Vaccine: 50+ Ye ars (1 of 1 - PCV) 1992 Zoster Vaccines (1 of 2) 1992 Annual Medicare Wellness Visit 2007 RSV Immunization or 60+ Years (1 - 1-dose 75+ series) 2017 COVID-19 Vaccine (2023-2 5 season) 2024 Dexa Scan (General) Completed 08/02/2022 Meningococcal B Vaccine Aged Out No l onger eligible based on patient's age to complete this topic Meningococcal Vaccine Aged Out No cate jj eligible based on patient's age to complete this topic RSV Immunizations Under 20 Months Aged Out No longer eligible based on patient's age to complete this topic Procedures Procedure Name Priority Date/Time Associated Diagnosis Comments BONE DENSITY/DEXA Routine 08/02/2022 4:0 1 PM CDT Other primary ovarian failure from Last 3 Months or Most Recently Relevant to Health Maintenance Results * BONE DENSITY/DEXA (08/02/2022 4:01 PM CDT) Anatomical Region Laterality Modality Bone Bone Density 08/02/2022 4:03 PM CDT Narrative 08/02/2022 4:06 PM CDT IMAGING STUDIES: BONE DENSITY/DEXA DATE: 08/02/2022 3:28 PM CLINICAL HISTORY: Postmenopausal. On calcium replacement therapy. 82-year-old female with menopause at age 52 FINDINGS: LUMBAR SPINE L2-L4: BMD: 1.167 g/sq cm T-SCORE: 0.8 WHO CLASSIFICATION: Normal young adult range FRACTURE RISK: Negligible LEFT FEMORAL NECK: BMD: 0.938 T-SCORE: 0.8 WHO CLASSIFICATION: Normal young adult range FRACTURE RISK: Negligible COMPARISON STUDY: 10/01/2011. LUMBAR SPINE L2-L4: BMD: 1.057 T-SCORE: -0.2 WHO CLASSIFICATION: Normal young no range FRACTURE RISK: Negligible LEFT FEMORAL NECK: BMD: 0.737 T-SCORE: -1.0 WHO CLASSIFICATION: Mild osteopenia FRACTURE RISK: Very low Recommendation. Continuation of calcium replacement therapy with repeat imaging in 2 years Referred By: CHERIE CRUZ Interpreted By: Gareth Moreno MD, 08/02/2022 4:03 PM Procedure Note Gareth Moreno MD - 08/02/2022 IMAGING STUDIES: BONE DENSITY/DEXA DATE: 08/02/2022 3:28 PM CLINICAL HISTORY: Postmenopausal. On calcium replacement therapy.82-year-old female with menopause at age 52 FINDINGS: LUMBAR SPINE L2-L4: BMD: 1.167 g/sq cm T-SCORE: 0.8 WHO CLASSIFICATION: Normal young adult range FRACTURE RISK: Negligible LEFT FEMORAL NECK: BMD: 0.938 T-SCORE: 0.8 WHO CLASSIFICATION: Normal young adult range FRACTURE RISK: Negligible COMPARISON STUDY: 10/01/2011. LUMBAR SPINE L2-L4: BMD: 1.057 T-SCORE: -0.2 WHO CLASSIFICATION: Normal young no range FRACTURE RISK: Negligible LEFT FEMORAL NECK: BMD: 0.737 T-SCORE: -1.0 WHO CLASSIFICATION: Mild osteopenia FRACTURE RISK: Very low Recommendation. Continuation of calcium replacement therapy with repeatimaging in 2 years Referred By: CHERIE CRUZ Interpreted By: Gareth Moreno MD, 08/02/2022 4:03 PM Cherie Cruz PA-C DEXA Final Resu lt from Last 3 Months or Most Recently Relevant to Health Maintenance Insurance MEDICARE [facility] AND LIFE INSURANCE COMPANY [facility] Care Teams Glove Turner And Former Automatic Relationship Specialty Start Date End Date Cherie Cruz PA-C [address] [place] [address] [address] [place] [address] PCP - General PHYSICIAN B2B MANAGED SERVICE SALES EXEC 08/02/22
--- NOTE | 2024-12-30 09:46 | PC.NURSE ---
Report to the Outpatient Waiting Room, entrance under the green pavilion located off [facility], at time __6 am on date _01/06/25 . Planned Procedure Time: _7:30 am .? Time changes happen often and if your time is changed the preop area will call you the afternoon before. - You and your visitor will be asked to self-screen and do not enter if you have any COVID symptoms. Please call surgeon if you need to reschedule. - A mask is optional within the hospital at this time. Patients may have clear liquids (water, carbonated beverages, clear teas, apple juice) until 3 hours prior to surgery (4:30 am)with a maximum of 20 ounces. - No food from midnight until time of surgery and no smoking, or chewing tobacco (or any form of nicotine). No chewing gum, candy or mints. Take only the following medications with a SIP of water on the morning of surgery: AMLODIPINE DO NOT STOP ANY OF YOUR OTHER PRESCRIPTION MEDICATIONS PRIOR TO SURGERY EXCEPT THE FOLLOWING Hold all vitamins and supplements for 3 days per anesthesiologist.LAST DOSE 01/02/25 Medications to discontinue per physician NONE Date to take last dose Please no make-up, nail jamaican, hairspray, perfume, deodorant, or body powder the day of surgery.? No jewelry (including any body piercings) or valuables the day of surgery, leave them at home.? Please take a shower or bath the night before, or the morning of, surgery with an antibacterial soap.? Wear comfortable, loose fitting clothing.? Children are encouraged to wear pajamas. - Jewelry must be removed prior to entering the operating room.? Rings and piercings that are not removed may be cut off. - The hospital will not accept responsibility for valuables.? - Please leave all valuables, including medications, at home the day of surgery. If you are going home after surgery, a licensed funeral limousine driver must drive you home.? - NO public transportation without another adult if you receive anesthesia. - We recommend that an adult stay with you for 24 hours following discharge. - We also recommend that you do not drive, make important decision, drink alcoholic beverages, or take any drugs that were not prescribed by your health care provider for at least 24 hours after your discharge time. For Pediatric surgeries, we recommend two adults accompany the child home. Follow any additional instructions given to you from your surgeon. Telephone instructions given to __PATIENT and asked if any additional questions and then verbalized understanding. Patient advised to call surgeon office or pre surgery nurse liaison [phone] if any additional questions.
--- NOTE | 2024-12-30 11:10 | PC.NURSE ---
STATES NO CHANGE IN HEALTH HX SINCE LAST INTERVIEW ON 11/15/24
[2025-01-06] VITALS (17 sets, daily range): BP systolic 147–177; BP diastolic 57–80; PULSE 76–117; RESP 12–20; TEMP 36.3–37.7; O2SAT 91–98
[2025-01-06] MEDS: LACTATED RINGERS 1,000 ML 30 ML IV CONT ×2 (06:30→11:17)
[2025-01-06] MEDS: ACETAMINOPHEN 500 MG TABLET 1000 MG PO (06:45)
[2025-01-06] MEDS: VANCOMYCIN HCL 1,000 MG in SODIUM CHLORIDE 0.9% IV 250 ML 250 MG IVPB ×2 (06:45→18:30)
[2025-01-06] MEDS: TRANEXAMIC ACID 1,000MG/ISO100 1,000 MG/100 ML BAG 200 MG IVPB (07:00)
--- NOTE | 2025-01-06 07:13 | WPDHPUPDATE1 ---
History and Physical Update Update Date/Time: 01/06/25 07:13 History and Physical has been reviewed, including an updated exam of the patient. There are NO changes in the patient's condition. Risks, benefits, and alternatives have been discussed and questions answered. Patient agrees to proceed with procedure.
--- NOTE | 2025-01-06 07:26 | WPDANESEPPF ---
Anes - Initial Pre Proc Eval Procedure: Operation Date: 01/06/25 07:30 Proposed Procedures p Right Total Knee Arthroplasty, Left knee Cortisone Injection - Zi Andersen MD Date/Time: 01/06/25 07:26 Surgeon: Zi Andersen MD Pre Op Diagnosis: O A Rt Knee Patient Data Age: 84 Gender: F Height: 1.55 m Weight: 68.4 kg Last Vital Signs Temp 98.2 F 01/06/25 07:17 Pulse 76 01/06/25 07:17 Resp 16 01/06/25 07:17 BP 177/62 H 01/06/25 07:17 Pulse Ox 98 01/06/25 07:17 O2 Del Method Room Air 01/06/25 07:17 Allergies Allergy/AdvReac Type Severity Reaction Status Date / Time dapagliflozin (From [facility]) AdvReac Other Verified 12/30/24 09:27 empagliflozin (From AdvReac Other Verified 12/30/24 09:27 Jardiance) Home Medications ?Medication ?Instructions ?Recorded ?Confirmed ?Type coconut oil 1,000 mg capsule 2,000 mg PO DAILY 06/20/22 11/24/24 History glucosamine-chondroitin 250 mg-200 2 tablet PO DAILY 06/20/22 01/06/25 History mg tablet (Osteo Bi-Flex) latanoprost 0.005 % eye drops 1 drp EACH EYE QPM 06/20/22 01/06/25 History vitamin B complex 1 tablet PO DAILY 06/20/22 01/06/25 History glimepiride 2 mg tablet 2 mg PO QAM #90 tabs 07/13/24 01/06/25 Rx metformin 500 mg tablet,extended 1,000 mg (2 x 500 mg) PO BID #360 08/09/24 01/06/25 Rx release 24 hr tabs hydrochlorothiazide 12.5 mg capsule 12.5 mg PO DAILY #90 caps 09/20/24 01/06/25 Rx losartan 100 mg tablet 100 mg PO DAILY #90 tabs 09/20/24 01/06/25 Rx Fiber Restore PO 09/22/24 11/24/24 History Lemon Energizer PO 09/22/24 11/24/24 History Reliv Vitamins PO 09/22/24 11/24/24 History garcnia camb 800 mg PO DAILY 09/22/24 01/06/25 History omega-3 fatty acids 1,000 mg 2,000 mg PO DAILY 09/22/24 11/24/24 History capsule acetaminophen 500 mg tablet 1,000 mg PO PRN PRN pain 11/15/24 01/06/25 History (Acetaminophen Pain Relief) rosuvastatin 5 mg tablet 5 mg PO HS 11/15/24 01/06/25 History sulfamethoxazole 800 1 tablet PO Q12H #6 tabs 11/29/24 Rx mg-trimethoprim 160 mg tablet (Bactrim DS) amlodipine 5 mg tablet 5 mg PO DAILY #90 tabs 12/27/24 01/06/25 Rx Laboratory Tests 01/06/25 07:15 POC Capillary Glucose 126 H mg/dl (65-105) Patient hx anesthesia problems: none Family hx anesthesia problems: none Results Review: All pre-operative results and documents have been reviewed as part of the pre-operative evaluation. [facility] Past Medical History Medical History (Updated 12/08/24 @ 09:08 by Chilo Zaman MD) Glaucoma Osteoarthritis HTN (hypertension) Hyperlipidemia Diabetes Surgical History Surgical History (Updated 11/18/24 @ 11:29 by Cherie Duval PA-C) History of lumpectomy of left breast 2008 Family History Family History Father Heart disease Mother Diabetes mellitus Sibling , age 7 polio Polio Sibling , age 75 Heart disease Sibling , age 38, drowning Drowning Sibling Breast cancer Heart disease Social History Social History Smoking status: Never smoker Second hand tobacco smoke exposure: No Additional smoking assessment comments: DENIES ANY FORM OF TOBACCO USE Alcohol intake: never Substance use: never Substance use type: does not use Do You Feel Safe in your Home?: Yes Lack of Transportation: No Lack of Food: Never True Current Housing: I Have Housing Concerned About Future Housing: No Difficulty Paying Gas/Electric Bills: No Difficulty Paying for Meds: No Currently Unemployed: No Education: High School Diploma/GED Difficulty w/ Childcare or Family Care: No Living arrangements: with family Occupation/Education: retired 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 Gender identity (if verbalized by the patient): Female Sexual Orientation (if Verbalized by the Patient): Straight or Heterosexual Spiritual care concerns: No Anes - Eval Final PreProcedure Day of Procedure 01/06/25 07:26 Patient weight: normal Heart: regular rate and rhythm Lungs: clear to auscultation Airway: Mallampati scale class II Neurological: alert and oriented Last oral intake: >/= 8 hours ASA classification: III Emergent: no Anesthetic plan: proceed Anesthesia type and monitoring: general ETT and standard monitoring Results Review: All pre-operative results and documents have been reviewed as part of the pre-operative evaluation. Informed Consent: The patient's anesthetic plan and its attendant risks and benefits were discussed with the patient/family/POA. Questions were solicited and answers provided to the satisfaction of the patient/family/POA.
--- NOTE | 2025-01-06 07:31 | PM.IMHP ---
H&P: HPI History of Present Illness Date/Time: 01/06/25 07:31 Chief Complaint: Osteoarthritis both knees Narrative: HPI HPI Comments Details: Patient returns. She is here to discuss upcoming right total knee arthroplasty which has been scheduled for December 02. Her right knee pain is been getting worse and worse. She hears crunching in her knee and it feels like it will give way causing her to fall so she has been using a cane to minimize her risk of falling. She is having difficulty walking to the extent that she is no longer able to keep up with her who has weakness in his left hip and has to use a walker multimedia programmer. He has a partial knee replacement in his right knee actually that we did approximately 10 years ago. She is scheduled for a kidney ultrasound today at 2:00 p.m.. Her last GFR was only 44 and she has been referred to Dr. Zaman for evaluation. She saw him on November 11. Extensive blood work for evaluation of her diminished renal function was ordered. She is scheduled to undergo a kidney ultrasound procedure at 2:00 p.m. today. I reviewed Dr. Zaman's note and the advised her to avoid nonsteroidal anti-inflammatory medication. She had been taking a lot more Aleve prior to that visit. She has stop the Aleve. It is possible that her increase in worsening symptoms is at least in part due to her no longer taking Aleve. Patient did see Dr. Henley in the office and he recommended a stress test be performed for pre-surgical cardiac evaluation. This has been scheduled for November 22. Physical examination On exam today she has no effusion in the right knee. She has range of motion from 10-125 degrees with moderate pain at full flexion. She had normal varus valgus stability negative Eric's. Hip range of motion is full without discomfort. Negative Stinchfield maneuver. She had 5/5 abduction strength in the side-lying position. She did have moderate tenderness over the greater trochanter. She had 5/5 quadriceps strength. She reported normal light touch sensation the right lower extremity. She has mild tenderness over the medial joint line. 2+ strict posterior tibial absent dorsalis pedis pulses. Skin looked healthy no lower extremity edema. She walks with a mild limp today with her cane. Her BMI is 27.6. X-rays Standing AP and PA flexion Stork views obtained in the office of the right knee demonstrate [id number] medial compartment osteoarthritis with sclerosis and wear of the opposing surfaces and prominent medial joint line osteophyte indicative of advanced long standing severe medial compartment osteoarthritis the right knee. There is prominent chondrocalcinosis noted particularly in the lateral compartment. Assessment and plan 1. Patient has advanced medial compartment osteoarthritis of the right knee which is causing her severe limitation. I discussed with her that I do not feel she is a good candidate for a partial knee replacement because of her 10 degree flexion contracture. I have discussed risks of surgery with her in detail. I have explained that it is possible or surgery may need to be postponed if there is an abnormality of the stress test or if there is a treatable reversible problem causing her kidney dysfunction that should be addressed before proceeding with surgery. I explained that surgery can result in further kidney deterioration which is a risk of surgery in patients that have kidney dysfunction. I explained that there will be numbness lateral to the incision and that patients have difficulty kneeling after knee replacement and some patients will have chronic anterior knee soreness. Risk of infection was discussed. She states that her teeth are in good condition except she does need to have a feeling replaced she plans to do this 6 months after her knee replacement and her dentist is aware that plan. Risk of blood clots was discussed. She has no personal or family history of DVT. Risk of stiffness problems and scar tissue formation was explained and I reviewed with her that it will be important that she focus on maintaining a full flexion and full extension knee replacement as if she does not focus on this her knee may become stiff. Risk of complications such as component loosening, fracture, ligament injury, instability or other complications that results in need for revision surgery was discussed. Risk of bleeding and need for transfusion was discussed. Her hemoglobin on prescreening was 10.9 which is just a little bit lower than it was 1 ago. Her red cell indices were normal. This might suggest she has anemia of chronic disease related to her chronic kidney dysfunction. I have discussed with her that in most cases we will use Celebrex after surgery which helped greatly and pain control and facilitates regaining range of motion but unfortunately that will not be an option for her because of her renal dysfunction and as such she will tend to have more pain than the average patient after surgery since we will not be able to use the Celebrex. This means she may need to work harder on focusing on range of motion. Risk nerve injury and risk of medical complications such as heart attack stroke pulmonary embolism and was discussed. I did discuss with her and her that the risk of mortality is higher in 80 year olds estimated at 1/200 in the 90 days after surgery. All of her questions were answered. If she is cleared to proceed we will proceed with right total knee replacement on December 02 as discussed. She does have moderately severe osteoarthritis in the left knee as well radiographically. Left knee is not bothering her currently. If it does become symptomatic after her knee replacement on the right we can give her a cortisone shot in her left knee at any time. [facility] Past Medical History Medical History (Updated 12/08/24 @ 09:08 by Chilo Zaman MD) Glaucoma Osteoarthritis HTN (hypertension) Hyperlipidemia Diabetes Surgical History Surgical History (Updated 11/18/24 @ 11:29 by Cherie Duval PA-C) History of lumpectomy of left breast 2008 Family History Family History Father Heart disease Mother Diabetes mellitus Sibling , age 7 polio Polio Sibling , age 75 Heart disease Sibling , age 38, drowning Drowning Sibling Breast cancer Heart disease Social History Social History Smoking status: Never smoker Second hand tobacco smoke exposure: No Additional smoking assessment comments: DENIES ANY FORM OF TOBACCO USE Alcohol intake: never Substance use: never Substance use type: does not use Do You Feel Safe in your Home?: Yes Lack of Transportation: No Lack of Food: Never True Current Housing: I Have Housing Concerned About Future Housing: No Difficulty Paying Gas/Electric Bills: No Difficulty Paying for Meds: No Currently Unemployed: No Education: High School Diploma/GED Difficulty w/ Childcare or Family Care: No Living arrangements: with family Occupation/Education: retired 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 Gender identity (if verbalized by the patient): Female Sexual Orientation (if Verbalized by the Patient): Straight or Heterosexual Spiritual care concerns: No Meds Home Medications and Allergies Home Medications ?Medication ?Instructions ?Recorded ?Confirmed ?Type coconut oil 1,000 mg capsule 2,000 mg PO DAILY 06/20/22 11/24/24 History glucosamine-chondroitin 250 mg-200 2 tablet PO DAILY 06/20/22 01/06/25 History mg tablet (Osteo Bi-Flex) latanoprost 0.005 % eye drops 1 drp EACH EYE QPM 06/20/22 01/06/25 History vitamin B complex 1 tablet PO DAILY 06/20/22 01/06/25 History glimepiride 2 mg tablet 2 mg PO QAM #90 tabs 07/13/24 01/06/25 Rx metformin 500 mg tablet,extended 1,000 mg (2 x 500 mg) PO BID #360 08/09/24 01/06/25 Rx release 24 hr tabs hydrochlorothiazide 12.5 mg capsule 12.5 mg PO DAILY #90 caps 09/20/24 01/06/25 Rx losartan 100 mg tablet 100 mg PO DAILY #90 tabs 09/20/24 01/06/25 Rx Fiber Restore PO 09/22/24 11/24/24 History Lemon Energizer PO 09/22/24 11/24/24 History Reliv Vitamins PO 09/22/24 11/24/24 History garcnia camb 800 mg PO DAILY 09/22/24 01/06/25 History omega-3 fatty acids 1,000 mg 2,000 mg PO DAILY 09/22/24 11/24/24 History capsule acetaminophen 500 mg tablet 1,000 mg PO PRN PRN pain 11/15/24 01/06/25 History (Acetaminophen Pain Relief) rosuvastatin 5 mg tablet 5 mg PO HS 11/15/24 01/06/25 History sulfamethoxazole 800 1 tablet PO Q12H #6 tabs 11/29/24 Rx mg-trimethoprim 160 mg tablet (Bactrim DS) amlodipine 5 mg tablet 5 mg PO DAILY #90 tabs 12/27/24 01/06/25 Rx Allergies Allergy/AdvReac Type Severity Reaction Status Date / Time dapagliflozin (From Farxiga) AdvReac Other Verified 12/30/24 09:27 empagliflozin (From AdvReac Other Verified 12/30/24 09:27 Jardiance) Vital Signs Vital Signs - 24 hr 01/06/25 07:17 Temperature 36.8 C Pulse Rate 76 Respiratory Rate 16 Blood Pressure 177/62 H Pulse Oximetry 98 Oxygen Delivery Room Air Assessment and Plan Assessment and plan (1) Primary localized osteoarthritis of knees, bilateral: Code(s): M17.0 - Bilateral primary osteoarthritis of knee Status: Acute Assessment and Plan: Patient has severe osteoarthritis in both knees. She it presents for right total knee arthroplasty and cortisone injection left knee. Risks of surgery were discussed with her in detail. She did complete a preoperative evaluation. 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 CT angiogram of the coronary arteries performed at [place] showed less than 50% narrowing of certain vessels of the heart with no high-grade lesion. Calcium score was elevated at 800. She was felt to be cleared to proceed with surgery without significant elevation of cardiac risk. I spoke with Dr. Noble yesterday and it was not felt it was necessary to start her on aspirin at this time but it may be considered later on.
[2025-01-06] MEDS: ceFAZolin 2 GM in SODIUM CHLORIDE 0.9% IV 50 ML 100 ML IVPB ×2 (07:45→15:49)
[2025-01-06] MEDS: LIDOCAINE 1% LOCAL INJ 10 ML VIAL 4 ML INFILTRATE (08:36)
[2025-01-06] MEDS: methylPREDNISolone ACETATE 80 MG/ML VIAL IM (08:44)
[2025-01-06] MEDS: GENTAMICIN BONE CEMENT REFOBACIN 1 EACH TOPICAL (09:50)
[2025-01-06] MEDS: TRANEXAMIC ACID 1,000 MG/10 ML AMPUL 1000 MG IV PUSH (10:07)
--- NOTE | 2025-01-06 11:04 | W.PM.PROC2 ---
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 She received 2 g of Ancef weight based vancomycin 1 g of TXA preoperatively. Under anesthesia the right knee came out to about 3? from full extension. The left knee was prepped with Betadine and 20 mg of Kenalog and 4 cc 1% lidocaine were injected into the left knee without difficulty. The right knee was prepped draped usual fashion. Limb was exsanguinated tourniquet elevated to 300 mmHg. A 7 in longitudinal midline incision was made and a vastus medialis splitting approach utilized splitting the vastus medialis at the superior pole patella. Partial excision of infrapatellar fat pad and quadriceps synovectomy carried out. Portion of suprapatellar fat pad excised. The patella had inferomedial osteophyte but had intact articular cartilage throughout. I felt it was most suitable for non resurfacing. A limited lateral facetectomy was performed. A guide nely was inserted on femoral canal after aspiration of canal contents 9 mm of bone removed the distal femur as there was wear medially this took equal amounts medially laterally. Next the tibial was cut. A skim cut was made off the low point of the tibial plateau medially in the wear area. The the meniscal remnants were excised PCL recessed. Flexion gap was too tight medially to except the 8 mm spacer at 90?. An additional 2 mm of bone was removed the tibial plateau at this time again perpendicular to the axis of the tibia and the flexion gap measured 8 mm medially 12 mm laterally. Femoral sizing guide was applied the distal femur set at 5? of external rotation which matched Whitesides line. Posterior referencing pinholes were placed. The size 62.5 vanguard cutting block was applied AP and chamfer cuts were made and the trial fit line to line medial to lateral the rested on the anterior cortex there was no notch. The tibia was sized to a size 67 placed at proper rotation which fit line to line anteromedial to posterolateral and this was punched. We trialed with the 10 mm insert and at 90? this gave 1/2 mm of opening medially laterally with 2 or 3 mm of anterior drawer at 90? with the arthrotomy approximated with towel clips. There is a barely positive bounce lacking 1 or 2?. There was 1.5 mm of opening medially no opening laterally to valgus and varus stress in extension. With the 5 degree wing on the intramedullary nely tight assess the distal femoral cut and found at about 4? of anatomic axis valgus therefore an additional mm of bone was removed from the distal lateral femoral condyle the the and centrally. Chamfer cuts revisited. Posterior femoral osteophyte was removed proximal to the posterior condyles the trial femur. Minimal central posterior capsular release was performed from the central femur. On re trialing the knee came out to full extension with the 10 insert 1 mm medial and 1 mm of lateral opening. Bighorn flexion was to 130. Two or 3 mm of anterior drawer at 90? a mm of medial lateral opening each. The step drill was used to make multiple perforations in the tibial plateau and distal femur. The bony surfaces thoroughly irrigated and dried. Using 2 batches of methylmethacrylate 1 with gentamicin powder, cement was applied to the size 67 vanguard tibia and the size 62.5 right cruciate retaining femoral component. Cement applied the tibial plateau pressurized tibial component fully seated. Cement applied the femur the femoral component fully seated the knee brought into extension with 11 mm 5 in 1 insert for pressurization. Tourniquet was released at 100 minutes. After cement hardening excess cement was sought for removed and hemostasis was achieved. We trialed with the 10 insert at the same findings as above. There was central patellar tracking the tourniquet down. The real 10 was placed without difficulty locked with a locking pin. Range of motion stability and patellar tracking were confirmed. Local anesthetic cocktail was injected in the periarticular soft tissues. Two additional g of Ancef 1 g TXA given time wound closure. The arthrotomy was closed with 2. Vicryl some running 1. Unidirectional barbed Stratafix suture and a split closed with 1. Vicryl. Skin was closed with 2 subcutaneous Vicryl 3-0 subcuticular Monocryl and glue. EBL is 150 cc. There were no complications. Patient was transferred postop recovery room stable condition. [facility] [place] Billing Surgery - Charge Forward: Surgery Billing (Cortisone injection left knee, right total knee arthroplasty)
[2025-01-06] MEDS: fentaNYL CITRATE INJ (*CRX) 100 MCG/2 ML VIAL 25 MCG IV PUSH ×4 (11:23→11:47)
[2025-01-06] MEDS: ONDANSETRON INJ 4 MG/2 ML VIAL IV PUSH ×3 (13:00→20:06)
--- NOTE | 2025-01-06 14:32 | ADMGEN ---
This patient, Sandy Harding, was admitted to 2 Medical Room 242-. Patient/family oriented to hospital policies and general routines including ID bracelet, bed and alarms, visiting hours, pain management, procedures, bathroom and other care routines, personal items, smoking policy, room service/diet, and visiting hours. Information on how to activate the Rapid Response Team has been discussed. Patient/Family are encouraged to report perceived risks to care and to ask questions if they do not understand what they are told or what they should do.
[2025-01-06] MEDS: SODIUM CHLORIDE 0.9% IV 1,000 ML 125 ML IV CONT (14:40)
[2025-01-06] MEDS: ACETAMINOPHEN 325 MG TABLET 650 MG PO (14:40)
[2025-01-06] MEDS: oxyCODONE HCL (*CRX) 2.5 MG TAB IR PO ×2 (14:40→18:27)
[2025-01-06] MEDS: metFORMIN HCL XR 500 MG TAB.SR.24H 1000 MG PO (18:26)
[2025-01-06] MEDS: LATANOPROST 0.005% OP SOLN 2.5 ML BTL 1 DROP EACH EYE (18:28)
--- NOTE | 2025-01-06 19:59 | PM.IMCN ---
Assessment and Plan Assessment and plan (1) HTN (hypertension): Code(s): I10 - Essential (primary) hypertension Status: Acute (2) Abnormal nuclear stress test: Code(s): R94.39 - Abnormal result of other cardiovascular function study Status: Acute (3) Hyperlipidemia: Code(s): E78.5 - Hyperlipidemia, unspecified Status: Acute (4) Diabetes: Code(s): E11.9 - Type 2 diabetes mellitus without complications Status: Acute (5) Chronic kidney disease, stage 3a: Code(s): N18.31 - Chronic kidney disease, stage 3a Status: Acute (6) Osteoarthritis: Code(s): M19.90 - Unspecified osteoarthritis, unspecified site Status: Acute (7) Primary localized osteoarthritis of knees, bilateral: Code(s): M17.0 - Bilateral primary osteoarthritis of knee Status: Acute (8) Status post knee replacement: Code(s): Z96.659 - Presence of unspecified artificial knee joint Status: Acute Plan Sandy Harding is a 84 year old female who was admitted for elective right knee arthroplasty was performed 01/06/2025. Medical consultation for postoperative management while inpatient. She underwent extensive pre-surgical cardiac evaluation. Stress test 11/22/2024 came back abnormal with moderate size partially reversible perfusion defect of lateral wall with ejection fraction 75% and hence he underwent CT coronary at [place] which showed three-vessel coronary artery disease resulting in overall mild stenosis with up to 50% stenosis in proximal right coronary artery. Calcified left breast nodule was noted as well. Her calcium score was 628. Status post right knee arthroplasty Nonobstructive coronary artery disease Calcified left breast nodule as per CT coronary angiogram follow-up as an outpatient basis. History of lumpectomy of the left breast 01/25/2000 Hypertension Type 2 diabetes on oral hypoglycemic agent. Add SSI. Last A1c 6.5. Will stop Amaryl and metformin while inpatient Hyperlipidemia Mild chronic anemia CKD stage 3 History of kidney stones Osteoarthritis DVT prophylaxis on apixaban Code status do not resuscitate HPI Date of Consult Consult date: 01/06/25 Requesting Physician: Zi Andersen MD Primary Care Provider: Cherie Duval PA-C Consult Narrative Narrative: Sandy Harding is a 84 year old female who was admitted for elective right knee arthroplasty was performed earlier today. Medical consultation for postoperative management while inpatient. Patient reports pain is controlled. Family at bedside. Denies any chest pain or shortness of breath. Received a corticosteroid injection on left knee as well today. She underwent extensive pre-surgical cardiac evaluation. Stress test 11/22/2024 came back abnormal with moderate size partially reversible perfusion defect of lateral wall with ejection fraction 75% and hence he underwent CT coronary at [place] which showed three-vessel coronary artery disease resulting in overall mild stenosis with up to 50% stenosis in proximal right coronary artery. Calcified left breast nodule was noted as well. Her calcium score was 628. Review of Systems Review of Systems: - CONSTITUTIONAL: Denies weight loss, fever and chills. - HEENT: Denies changes in vision and hearing - RESPIRATORY: Denies SOB and cough. - CV: Denies palpitations and CP. - GI: Denies abdominal pain, nausea, vomiting and diarrhea. - : Denies dysuria and urinary frequency. - MSK: Denies myalgia and joint pain. Reports bilateral knee pain - SKIN: Denies rash and pruritus. - NEUROLOGICAL: Denies headache and syncope. - PSYCHIATRIC: Denies recent changes in mood. Denies anxiety and depression. [facility] Past Medical History Medical History (Updated 12/08/24 @ 09:08 by Chilo Zaman MD) Glaucoma Osteoarthritis HTN (hypertension) Hyperlipidemia Diabetes Surgical History Surgical History (Updated 01/06/25 @ 20:10 by Myke Cano MD) History of lumpectomy of left breast 2008 Family History Family History Father Heart disease Mother Diabetes mellitus Sibling , age 7 polio Polio Sibling , age 75 Heart disease Sibling , age 38, drowning Drowning Sibling Breast cancer Heart disease Social History Social History Smoking status: Never smoker Second hand tobacco smoke exposure: No Additional smoking assessment comments: DENIES ANY FORM OF TOBACCO USE Alcohol intake: never Substance use: never Substance use type: does not use Do You Feel Safe in your Home?: Yes Lack of Transportation: No Lack of Food: Never True Current Housing: I Have Housing Concerned About Future Housing: No Difficulty Paying Gas/Electric Bills: No Difficulty Paying for Meds: No Currently Unemployed: No Education: High School Diploma/GED Difficulty w/ Childcare or Family Care: No Living arrangements: with family Occupation/Education: retired 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 Gender identity (if verbalized by the patient): Female Sexual Orientation (if Verbalized by the Patient): Straight or Heterosexual Spiritual care concerns: No Meds Home Medications and Allergies Home Medications ?Medication ?Instructions ?Recorded ?Confirmed ?Type coconut oil 1,000 mg capsule 2,000 mg PO DAILY 06/20/22 11/24/24 History glucosamine-chondroitin 250 mg-200 2 tablet PO DAILY 06/20/22 01/06/25 History mg tablet (Osteo Bi-Flex) latanoprost 0.005 % eye drops 1 drp EACH EYE QPM 06/20/22 01/06/25 History vitamin B complex 1 tablet PO DAILY 06/20/22 01/06/25 History glimepiride 2 mg tablet 2 mg PO QAM #90 tabs 07/13/24 01/06/25 Rx metformin 500 mg tablet,extended 1,000 mg (2 x 500 mg) PO BID #360 08/09/24 01/06/25 Rx release 24 hr tabs hydrochlorothiazide 12.5 mg capsule 12.5 mg PO DAILY #90 caps 09/20/24 01/06/25 Rx losartan 100 mg tablet 100 mg PO DAILY #90 tabs 09/20/24 01/06/25 Rx Fiber Restore PO 09/22/24 11/24/24 History Lemon Energizer PO 09/22/24 11/24/24 History Reliv Vitamins PO 09/22/24 11/24/24 History garcnia camb 800 mg PO DAILY 09/22/24 01/06/25 History omega-3 fatty acids 1,000 mg 2,000 mg PO DAILY 09/22/24 11/24/24 History capsule acetaminophen 500 mg tablet 1,000 mg PO PRN PRN pain 11/15/24 01/06/25 History (Acetaminophen Pain Relief) rosuvastatin 5 mg tablet 5 mg PO HS 11/15/24 01/06/25 History sulfamethoxazole 800 1 tablet PO Q12H #6 tabs 11/29/24 Rx mg-trimethoprim 160 mg tablet (Bactrim DS) amlodipine 5 mg tablet 5 mg PO DAILY #90 tabs 12/27/24 01/06/25 Rx Allergies Allergy/AdvReac Type Severity Reaction Status Date / Time dapagliflozin (From Merged With [facility]) AdvReac Other Verified 01/06/25 15:09 empagliflozin (From AdvReac Other Verified 01/06/25 15:09 Jardiance) Vital Signs Vital Signs - 24 hr 01/06/25 07:17 01/06/25 11:17 01/06/25 11:30 Temperature 98.2 F 99.9 F H Pulse Rate 76 117 H 102 H Respiratory Rate 16 16 18 Blood Pressure 177/62 H 172/80 H 163/66 H Pulse Oximetry 98 97 98 Oxygen Delivery Room Air Simple Face Mask Simple Face Mask Oxygen Flow Rate 6 6 01/06/25 11:45 01/06/25 12:00 01/06/25 12:15 Temperature 98.1 F Pulse Rate 99 96 94 Respiratory Rate 18 20 20 Blood Pressure 154/69 H 158/68 H 161/71 H Pulse Oximetry 98 95 92 Oxygen Delivery Simple Face Mask Room Air Nasal Cannula Oxygen Flow Rate 6 2 01/06/25 12:30 01/06/25 12:45 01/06/25 13:15 Temperature Pulse Rate 95 101 H 98 Respiratory Rate 20 20 18 Blood Pressure 155/76 H 164/69 H 170/71 H Pulse Oximetry 92 91 94 Oxygen Delivery Nasal Cannula Nasal Cannula Nasal Cannula Oxygen Flow Rate 2 3 2 01/06/25 13:45 01/06/25 14:20 01/06/25 14:35 Temperature 97.4 F L 97.4 F L 97.5 F L Pulse Rate 100 100 94 Respiratory Rate 18 18 18 Blood Pressure 152/63 H 156/66 H 147/64 H Pulse Oximetry 97 98 97 Oxygen Delivery Nasal Cannula Oxygen Flow Rate 2 01/06/25 15:05 01/06/25 15:56 01/06/25 16:05 Temperature 97.5 F L 97.6 F Pulse Rate 101 H 90 Respiratory Rate 19 19 Blood Pressure 167/76 H 149/63 H Pulse Oximetry 98 93 Oxygen Delivery Room Air Oxygen Flow Rate Exam Narrative: GENERAL: The patient is well developed, not in acute distress HEENT: Nonicteric sclerae, PERRLA, EOMI. Oropharynx clear. Moist mucous membranes. Conjunctivae appear well perfused. CHEST: Chest wall is nontender. HEART: Regular rate and rhythm without murmur, rubs, or gallops LUNGS: Clear to auscultation bilaterally. no respiratory distress ABDOMEN: Soft, positive bowel sounds, non-tender, no organomegaly. SKIN: No rash, no excessive bruising, petechiae, or purpura. NEUROLOGIC: Cranial nerves II-XII intact, alert and oriented x 3, no gross motor deficits EXTREMITIES: no edema, cyanosis or clubbing Right PE with surgical dressing which is clean dry and intact Hospitalist MIPS Advance Care Plan I have confirmed that the patient's Advanced Care Plan is present, code status is documented, or surrogate decision maker is listed in patient medical record.: Yes Medication Reconciliation I have utilized all available resources to obtain, update and review the patients current medications (includes all prescriptions, OTC, herbals, cannabis, and nutritional supplements).: Yes
[2025-01-06] MEDS: IBUPROFEN IV 400 MG in SODIUM CHLORIDE 0.9% IV 100 ML 200 MG IVPB (20:05)
--- NOTE | ~2025-01-07 | XR_ITS ---
EXAMINATION: [id number] DATE: 01/06/2025 11:49 CDT INDICATION: Status post right knee arthroplasty TECHNIQUE: 2 views right knee FINDINGS: There is a right total knee arthroplasty in expected position. Subcutaneous gas with fluid and air in the joint are consistent with recent surgery. No evidence of periprosthetic fracture. IMPRESSION: 1. Recent right total knee arthroplasty. Reviewed, dictated and finalized at location A.
--- NOTE | ~2025-01-07 | XR_ITS ---
XR hip RT 2V w AP pelvis 01/08/2025 10:54 Indication: Right hip pain Procedure: AP pelvis and 2 views right hip Comparison: No prior studies for comparison. Findings: No acute fracture. Mild symmetric osteoarthritis of the hips. Sacral foramen are symmetric. Impression: 1: Mild symmetric osteoarthritis of the hips. Reviewed, dictated and finalized at location O. Impression: 1: Mild symmetric osteoarthritis of the hips.
[2025-01-07] MEDS: ceFAZolin 1 GM in SODIUM CHLORIDE 0.9% IV 50 ML 100 ML IVPB ×2 (00:11→08:37)
[2025-01-07] MEDS: ROSUVASTATIN 5 MG TABLET PO ×2 (00:13→20:25)
[2025-01-07] MEDS: ONDANSETRON INJ 4 MG/2 ML VIAL IV PUSH ×2 (00:15→16:03)
[2025-01-07] MEDS: INSULIN ASPART (*BKC) 100 UNITS/ML SUB-Q ×3 (00:16→18:14)
[2025-01-07] MEDS: ACETAMINOPHEN 325 MG TABLET 650 MG PO (03:09)
[2025-01-07 03:51] VITALS: BP 142/80; PULSE 89; RESP 20; TEMP 37; O2SAT 92
[2025-01-07 05:05] LABS: Hematocrit 27.3 % (37.0-47.0); Hemoglobin 9.0 g/dL (12.0-15.0); Immature Granulocyte Percent A 0.7 % (0-0.5); Lymphocytes Absolute Auto 1.00 K/mm3 (0.9-3.2); Mean Corpuscular HGB Conc 33.0 g/dl (32-36); Mean Corpuscular Hemoglobin 29.3 pg (26-34); Mean Corpuscular Volume 88.9 fl (80-100); Nucleated Red Blood Cells Absolute Auto 0.000 K/mm3 (0.0-0.012); Nucleated Red Blood Cells Perc 0.0 % (0.0-0.2); Platelet Count Result 309 k/mm3 (150-375); Red Blood Count 3.07 M/mm3 (4.2-5.4); White Blood Count 13.2 K/mm3 (4.5-10.0)
[2025-01-07 05:22] LABS: Alanine Aminotransferase 31 U/L (6-35); Albumin Level 3.5 g/dL (3.5-5.1); Alkaline Phosphatase 63 U/L (38-126); Anion Gap 10 mmol/L (4-12); Aspartate Amino Transferase 48 U/L (14-36); Bilirubin,Total 0.3 mg/dL (0.2-1.3); Blood Urea Nitrogen 26 mg/dL (7-17); Calcium 8.4 mg/dL (8.4-10.2); Carbon Dioxide 20 mmol/L (22-30); Chloride 109 mmol/L (98-107); Estimated CRCL calculation 28 ml/min; Estimated Glomerular Filt Rate 42; Glucose 198 mg/dL (65-110); Magnesium 1.3 mg/dL (1.6-2.3); Potassium 4.4 mmol/L (3.4-5.0); Sodium 139 mmol/L (137-145); Total Protein 6.0 g/dL (6.3-8.2)
[2025-01-07] MEDS: oxyCODONE HCL (*CRX) 2.5 MG TAB IR PO ×5 (06:31→20:17)
[2025-01-07] MEDS: MAGNESIUM SULF 2 GM/WATER 50ML 2 GM/50 ML BAG IVPB (08:26)
[2025-01-07] MEDS: ASPIRIN 81 MG CHEWABLE TABLET PO (08:36)
[2025-01-07] MEDS: SENNA/DOCUSATE SODIUM TABLET 2 TAB PO ×2 (08:36→18:10)
[2025-01-07] MEDS: ACETAMINOPHEN 325 MG TABLET PO ×4 (08:36→20:17)
[2025-01-07] MEDS: VITAMIN B COMPLEX CAPSULE 1 CAP PO (08:36)
[2025-01-07] MEDS: DOXYCYCLINE HYCLATE 100 MG TABLET PO ×2 (08:36→20:16)
[2025-01-07] MEDS: LOSARTAN POTASSIUM 100 MG TABLET PO (08:37)
[2025-01-07] MEDS: ENOXAPARIN 30 MG/0.3 ML SYRINGE SUB-Q (08:37)
--- NOTE | 2025-01-07 10:32 | P.PNOP_ITS ---
Progress Note: A&P Assessment and Plan (1) Status post knee replacement: Qualifiers: Laterality: right Qualified Code(s): Z96.651 - Presence of right artificial knee joint Code(s): Z96.659 - Presence of unspecified artificial knee joint Status: Acute Assessment and Plan: Patient is postop day 1 after total knee replacement. She had a fair amount of nausea last night. Her IV fluids were continued and her nausea was much better by this morning. Her IV fluids were discontinued and she has been taking oral pain medication. We had put the oxycodone on hold. Low-dose oxycodone 2.5 mg has been resumed. We did give her 1 dose of 400 mg IV ibuprofen for pain control last night. This morning she is up in the chair and feels well. She has no changes in her mental status compared to preoperatively. We had a long conversation. On exam her right knee has mild swelling she has intact sensation and normal motor function in the right foot.. No drainage on the dressing. Her vital signs are stable. Her O2 sat 92% on room air. Urine output has been adequate this morning. Hemoglobin this morning is 9.0. Her hemoglobin was 10.9 preoperatively. This drop is expected following knee replacement due to acute blood loss and hemodilution from the IV fluids. Platelets are 309,000. Creatinine this morning is 1.23. BUN is 26. Estimated creatinine clearance was 48. Her creatinine was 1.24 in October so this is not a significant change and was is within her range over the past 6 months. With the creatinine clearance at less than 30, for DVT prophylaxis I have recommended Lovenox at renal dose 30 mg daily subQ which we have started this morning. Based on her coronary artery calcium score of 628 putting her at the upper 90th percentile and her abnormal stress test suggesting small prior infarct likely due to microvascular disease has there were no high-grade lesions in the coron cris artery large vessels, I am going to start her on the baby aspirin once daily at this time. Over the next month she may become hypercoagulable with elevated platelet count being common from the marrow stimulation the fact of having the blood loss anemia and Dr. Noble felt that long-term this may reduce her risk of cardiac events and stroke. Her blood sugars are better this morning at 198. Yesterday afternoon her blood sugar was very elevated at 287 I believe. She has been started on sliding scale insulin and her glyburide and metformin are on hold while she is in the hospital per the hospitalist. I did put her hydrochlorothiazide on hold to minimize risk of hyponatremia postop. Her blood pressure is consistent with her preop blood pressure at this time but if her blood pressure starts going up we will resume the hydrochlorothiazide. And at discharge I would plan to resume hydrochlorothiazide. Patient is to undergo physical therapy today. She is somewhat nervous about how she will do. With her significant comorbidities, I will admit her today for close monitoring. She is at higher risk for complications because of the medical issues discussed above. We will order labs again tomorrow. As she is at higher risk for postop infection following knee replacement due to her diabetes, we will utilize 10 days of doxycycline postop. Subjective Subjective Date/Time Seen: 01/07/25 10:32 Objective Data Vital Signs Vital Signs: Vital Signs - 24 hr 01/06/25 11:17 01/06/25 11:30 01/06/25 11:45 Temperature 37.7 C H Pulse Rate 117 H 102 H 99 Respiratory Rate 16 18 18 Blood Pressure 172/80 H 163/66 H 154/69 H Pulse Oximetry 97 98 98 Oxygen Delivery Simple Face Mask Simple Face Mask Simple Face Mask Oxygen Flow Rate 6 6 6 01/06/25 12:00 01/06/25 12:15 01/06/25 12:30 Temperature 36.7 C Pulse Rate 96 94 95 Respiratory Rate 20 20 20 Blood Pressure 158/68 H 161/71 H 155/76 H Pulse Oximetry 95 92 92 Oxygen Delivery Room Air Nasal Cannula Nasal Cannula Oxygen Flow Rate 2 2 01/06/25 12:45 01/06/25 13:15 01/06/25 13:45 Temperature 36.3 C L Pulse Rate 101 H 98 100 Respiratory Rate 20 18 18 Blood Pressure 164/69 H 170/71 H 152/63 H Pulse Oximetry 91 94 97 Oxygen Delivery Nasal Cannula Nasal Cannula Nasal Cannula Oxygen Flow Rate 3 2 2 01/06/25 14:20 01/06/25 14:35 01/06/25 15:05 Temperature 36.3 C L 36.4 C L 36.4 C L Pulse Rate 100 94 101 H Respiratory Rate 18 18 19 Blood Pressure 156/66 H 147/64 H 167/76 H Pulse Oximetry 98 97 98 Oxygen Delivery Oxygen Flow Rate 01/06/25 15:56 01/06/25 16:05 01/06/25 19:51 Temperature 36.4 C 36.6 C Pulse Rate 90 93 Respiratory Rate 19 20 Blood Pressure 149/63 H 154/74 H Pulse Oximetry 93 94 Oxygen Delivery Room Air Oxygen Flow Rate 01/06/25 20:00 01/06/25 23:43 01/07/25 03:51 Temperature 36.7 C 37.0 C Pulse Rate 93 82 89 Respiratory Rate 20 12 20 Blood Pressure 153/57 H 142/80 H Pulse Oximetry 94 92 92 Oxygen Delivery Room Air Oxygen Flow Rate 01/07/25 09:21 Temperature Pulse Rate Respiratory Rate Blood Pressure Pulse Oximetry Oxygen Delivery Room Air Oxygen Flow Rate Intake/Output Intake/Output: Intake & Output 01/04/25 01/05/25 01/06/25 01/07/25 23:59 23:59 23:59 23:59 Intake Total 354 590 Output Total 300 500 Balance 54 90 Meds/Results Medications: Active Medications Generic Name Dose Route Start Last Admin Trade Name Freq PRN Reason Stop Dose Admin Acetaminophen 325 mg 01/07/25 09:00 01/07/25 08:36 Acetaminophen 325 Mg Tablet PO 325 mg Q4HR MONICA Administration Amlodipine Besylate 5 mg 01/07/25 09:00 01/07/25 08:37 Amlodipine Besylate 5 Mg Tablet PO 5 mg DAILY MONICA Administration Aspirin 81 mg 01/07/25 08:00 01/07/25 08:36 Aspirin 81 Mg Chewable Tablet PO 81 mg DAILY@0800 MONICA Administration Dextrose 12.5 gm 01/06/25 14:06 Dextrose 50% 25 Gm/50 Ml Syringe IV PUSH PRN PRN Hypoglycemia Protocol Dextrose 12.5 gm 01/06/25 20:08 Dextrose 50% 25 Gm/50 Ml Syringe IV PUSH PRN PRN Hypoglycemia Protocol Doxycycline Hyclate 100 mg 01/07/25 09:00 01/07/25 08:36 Doxycycline Hyclate 100 Mg Tablet PO 01/17/25 08:59 100 mg Q12HR MONICA Administration Enoxaparin Sodium 30 mg 01/07/25 09:00 01/07/25 08:37 Enoxaparin 30 Mg/0.3 Ml Syringe SUB-Q 30 mg DAILY MONICA Administration Glucagon 1 mg 01/06/25 14:06 Glucagon For Inj 1 Mg Vial IM PRN PRN Hypoglycemia Protocol Glucagon 1 mg 01/06/25 20:08 Glucagon For Inj 1 Mg Vial IM PRN PRN Hypoglycemia Protocol Glucose 15 gm 01/06/25 14:06 Glucose Oral Gel 15 Gm Of Glucse In 37.5 Gm Tube PO PRN PRN Hypoglycemia Protocol Glucose 15 gm 01/06/25 20:08 Glucose Oral Gel 15 Gm Of Glucse In 37.5 Gm Tube PO PRN PRN Hypoglycemia Protocol Dextrose 1,000 mls @ 100 mls/hr 01/06/25 14:06 Dextrose 5% 1,000 Ml IVPB PRN PRN Hypoglycemia Protocol Dextrose 1,000 mls @ 100 mls/hr 01/06/25 20:08 Dextrose 5% 1,000 Ml IVPB PRN PRN Hypoglycemia Protocol Insulin Aspart 2 - 5 units 01/07/25 08:00 01/07/25 08:30 Insulin Aspart (*Bkc) 100 Units/Ml SUB-Q Not Given TIDWM MONICA Protocol Insulin Aspart 1 - 2 units 01/06/25 21:00 01/07/25 00:16 Insulin Aspart (*Bkc) 100 Units/Ml SUB-Q 1 units HS MONICA Administration Protocol Latanoprost 1 drop 01/06/25 18:00 01/06/25 18:28 Latanoprost 0.005% Op Soln 2.5 Ml Btl EACH EYE 1 drop QPM MONICA Administration Losartan Potassium 100 mg 01/07/25 09:00 01/07/25 08:37 Losartan Potassium 100 Mg Tablet PO 100 mg DAILY MONICA Administration Morphine Sulfate 2 mg 01/06/25 14:06 Morphine Sulfate (*Crx) 2 Mg/Ml Inj IV PUSH Q1H PRN Pain Rated 7-10 IF NPO Naloxone HCl 0.1 mg 01/06/25 14:06 Naloxone Hcl 0.4 Mg/Ml Vial IV PUSH Q2M PRN Opiate Reversal Ondansetron HCl 4 mg 01/06/25 14:06 01/07/25 00:15 Ondansetron Inj 4 Mg/2 Ml Vial IV PUSH 4 mg Q4H PRN Administration Nausea And Vomiting Oxycodone HCl 2.5 mg 01/07/25 09:00 01/07/25 08:37 Oxycodone Hcl (*Crx) 2.5 Mg Tab Ir PO 2.5 mg Q4HR MONICA Administration Polyethylene Glycol 17 gm 01/07/25 09:00 01/07/25 08:37 Polyethylene Glycol 3350 17 Gm Powd.Pack PO Not Given QAM MONICA Rosuvastatin Calcium 5 mg 01/06/25 21:00 01/07/25 00:13 Rosuvastatin 5 Mg Tablet PO 5 mg HS MONIAC Administration Senna/Docusate Sodium 2 tab 01/06/25 17:00 01/07/25 08:36 Senna/Docusate Sodium Tablet PO 2 tab BID MONICA Administration Vitamin B Complex 1 cap 01/07/25 09:00 01/07/25 08:36 Vitamin B Complex Capsule PO 1 cap DAILY MONICA Administration Radiology Results: ITS Impressions Knee X-Ray 01/06/25 11:48 IMPRESSION: 1. Recent right total knee arthroplasty. Labs Labs: Laboratory Results - last 24 hr 01/06/25 01/06/25 01/06/25 11:24 17:11 20:21 WBC RBC Hgb Hct MCV MCH MCHC RDW Plt Count MPV Immature Gran % (Auto) Neut % (Auto) Lymph % (Auto) [place] % (Auto) Eos % (Auto) Baso % (Auto) Lymph # (Auto) [place] # (Auto) Eos # (Auto) Baso # (Auto) Abs Immat Gran (auto) Absolute Neuts (auto) Absolute Nucleated RBC Nucleated RBC % Sodium Potassium Chloride Carbon Dioxide Anion Gap BUN Creatinine Estim Creat Clear Calc Estimated GFR Glucose POC Capillary Glucose 188 H 278 H 251 H Calcium Magnesium Total Bilirubin AST ALT Alkaline Phosphatase Total Protein Albumin 01/07/25 01/07/25 04:16 08:07 WBC 13.2 H RBC 3.07 L Hgb 9.0 L Hct 27.3 L MCV 88.9 MCH 29.3 MCHC 33.0 RDW 13.2 Plt Count 309 MPV 9.3 Immature Gran % (Auto) 0.7 H Neut % (Auto) 79.7 H Lymph % (Auto) 7.6 L [place] % (Auto) 11.8 H Eos % (Auto) 0.0 Baso % (Auto) 0.2 Lymph # (Auto) 1.00 [place] # (Auto) 1.6 H Eos # (Auto) 0.0 Baso # (Auto) 0.0 Abs Immat Gran (auto) 0.09 H Absolute Neuts (auto) 10.5 H Absolute Nucleated RBC 0.000 Nucleated RBC % 0.0 Sodium 139 Potassium 4.4 Chloride 109 H Carbon Dioxide 20 L Anion Gap 10 BUN 26 H Creatinine 1.23 H Estim Creat Clear Calc 28 Estimated GFR 42 L Glucose 198 H POC Capillary Glucose 172 H Calcium 8.4 Magnesium 1.3 L Total Bilirubin 0.3 AST 48 H ALT 31 Alkaline Phosphatase 63 Total Protein 6.0 L Albumin 3.5
[2025-01-07 10:44] VITALS: BP 140/64; PULSE 80; RESP 18; TEMP 36.5; O2SAT 96
--- NOTE | 2025-01-07 11:59 | P.PNIM_ITS ---
Progress Note: A&P Assessment and Plan (1) Status post knee replacement: Qualifiers: Laterality: right Qualified Code(s): Z96.651 - Presence of right artificial knee joint Code(s): Z96.659 - Presence of unspecified artificial knee joint Status: Acute Assessment and Plan: - s/p R TKA by Dr. Andersen 01/06/25 - post-operative management per primary - PT/OT (2) Primary localized osteoarthritis of knees, bilateral: Code(s): M17.0 - Bilateral primary osteoarthritis of knee Status: Acute Assessment and Plan: - as above (3) HTN (hypertension): Code(s): I10 - Essential (primary) hypertension Status: Acute Assessment and Plan: - BP 140/64 - home HCTZ currently on hold can resume in the AM if BMP stable - continue home amlodipine (4) Anemia: Code(s): D64.9 - Anemia, unspecified Status: Acute Assessment and Plan: - Hgb 9.0 this AM, expected post-op - monitor CBC (5) Abnormal nuclear stress test: Code(s): R94.39 - Abnormal result of other cardiovascular function study Status: Acute Assessment and Plan: - Stress test 11/22/2024 came back abnormal with moderate size partially reversible perfusion defect of lateral wall with ejection fraction 75% and hence he underwent CT coronary at [facility] which showed three-vessel coronary artery disease resulting in overall mild stenosis with up to 50% stenosis in proximal right coronary artery. Calcified left breast nodule was noted as well. Her calcium score was 628. - no chest pain - aspirin resumed. Continue statin. (6) Hyperlipidemia: Code(s): E78.5 - Hyperlipidemia, unspecified Status: Acute Assessment and Plan: - continue statin. (7) Diabetes: Code(s): E11.9 - Type 2 diabetes mellitus without complications Status: Acute Assessment and Plan: - hold home metformin, glimepiride - low dose SSI - POCT glucose qACHS - hypoglycemia management protocol (8) Chronic kidney disease, stage 3a: Code(s): N18.31 - Chronic kidney disease, stage 3a Status: Acute Assessment and Plan: - Cr 1.23, near baseline - monitor BMP Subjective Date/time seen: 01/07/25 11:59 Interval history: Patient is an 86 yo female admitted for R knee replacement. [facility] medicine following for medical management. Patient up in chair this AM. Having mild pain this AM. Overnight had nausea, improved this AM. Agreeable to stay in the hospital for one more night. Review of Systems Review of Systems: General: NAD Eyes: EOMI ENT: neck supple Cardiovascular: extremities appear well-perfused Respiratory: respirations even and unlabored on RA Gastrointestinal: Soft, non tender Genitourinary: no suprapubic tenderness Musculoskeletal: No edema. R knee incision CDI. RUE with very mild edema, erythema without tenderness or warmth Skin: warm, dry Neuro: Alert. Psych: Mood appropriate Objective Data Vital Signs Vital Signs: Vital Signs - 24 hr 01/06/25 12:00 01/06/25 12:15 01/06/25 12:30 Temperature 98.1 F Pulse Rate 96 94 95 Respiratory Rate 20 20 20 Blood Pressure 158/68 H 161/71 H 155/76 H Pulse Oximetry 95 92 92 Oxygen Delivery Room Air Nasal Cannula Nasal Cannula Oxygen Flow Rate 2 2 01/06/25 12:45 01/06/25 13:15 01/06/25 13:45 Temperature 97.4 F L Pulse Rate 101 H 98 100 Respiratory Rate 20 18 18 Blood Pressure 164/69 H 170/71 H 152/63 H Pulse Oximetry 91 94 97 Oxygen Delivery Nasal Cannula Nasal Cannula Nasal Cannula Oxygen Flow Rate 3 2 2 01/06/25 14:20 01/06/25 14:35 01/06/25 15:05 Temperature 97.4 F L 97.5 F L 97.5 F L Pulse Rate 100 94 101 H Respiratory Rate 18 18 19 Blood Pressure 156/66 H 147/64 H 167/76 H Pulse Oximetry 98 97 98 Oxygen Delivery Oxygen Flow Rate 01/06/25 15:56 01/06/25 16:05 01/06/25 19:51 Temperature 97.6 F 97.8 F Pulse Rate 90 93 Respiratory Rate 19 20 Blood Pressure 149/63 H 154/74 H Pulse Oximetry 93 94 Oxygen Delivery Room Air Oxygen Flow Rate 01/06/25 20:00 01/06/25 23:43 01/07/25 03:51 Temperature 98.0 F 98.6 F Pulse Rate 93 82 89 Respiratory Rate 20 12 20 Blood Pressure 153/57 H 142/80 H Pulse Oximetry 94 92 92 Oxygen Delivery Room Air Oxygen Flow Rate 01/07/25 08:00 01/07/25 09:21 01/07/25 10:44 Temperature 97.7 F Pulse Rate 80 Respiratory Rate 18 Blood Pressure 140/64 Pulse Oximetry 96 Oxygen Delivery Room Air Room Air Oxygen Flow Rate Intake/Output Intake/Output: Intake & Output 01/04/25 01/05/25 01/06/25 01/07/25 23:59 23:59 23:59 23:59 Intake Total 354 590 Output Total 300 500 Balance 54 90 Meds/Results Medications: Active Medications Generic Name Dose Route Start Last Admin Trade Name Freq PRN Reason Stop Dose Admin Acetaminophen 325 mg 01/07/25 09:00 01/07/25 08:36 Acetaminophen 325 Mg Tablet PO 325 mg Q4HR MONICA Administration Amlodipine Besylate 5 mg 01/07/25 09:00 01/07/25 08:37 Amlodipine Besylate 5 Mg Tablet PO 5 mg DAILY MONICA Administration Aspirin 81 mg 01/07/25 08:00 01/07/25 08:36 Aspirin 81 Mg Chewable Tablet PO 81 mg DAILY@0800 MONICA Administration Dextrose 12.5 gm 01/06/25 14:06 Dextrose 50% 25 Gm/50 Ml Syringe IV PUSH PRN PRN Hypoglycemia Protocol Dextrose 12.5 gm 01/06/25 20:08 Dextrose 50% 25 Gm/50 Ml Syringe IV PUSH PRN PRN Hypoglycemia Protocol Doxycycline Hyclate 100 mg 01/07/25 09:00 01/07/25 08:36 Doxycycline Hyclate 100 Mg Tablet PO 01/17/25 08:59 100 mg Q12HR MONICA Administration Enoxaparin Sodium 30 mg 01/07/25 09:00 01/07/25 08:37 Enoxaparin 30 Mg/0.3 Ml Syringe SUB-Q 30 mg DAILY MONICA Administration Glucagon 1 mg 01/06/25 14:06 Glucagon For Inj 1 Mg Vial IM PRN PRN Hypoglycemia Protocol Glucagon 1 mg 01/06/25 20:08 Glucagon For Inj 1 Mg Vial IM PRN PRN Hypoglycemia Protocol Glucose 15 gm 01/06/25 14:06 Glucose Oral Gel 15 Gm Of Glucse In 37.5 Gm Tube PO PRN PRN Hypoglycemia Protocol Glucose 15 gm 01/06/25 20:08 Glucose Oral Gel 15 Gm Of Glucse In 37.5 Gm Tube PO PRN PRN Hypoglycemia Protocol Dextrose 1,000 mls @ 100 mls/hr 01/06/25 14:06 Dextrose 5% 1,000 Ml IVPB PRN PRN Hypoglycemia Protocol Dextrose 1,000 mls @ 100 mls/hr 01/06/25 20:08 Dextrose 5% 1,000 Ml IVPB PRN PRN Hypoglycemia Protocol Insulin Aspart 2 - 5 units 01/07/25 08:00 01/07/25 08:30 Insulin Aspart (*Bkc) 100 Units/Ml SUB-Q Not Given TIDWM MONICA Protocol Insulin Aspart 1 - 2 units 01/06/25 21:00 01/07/25 00:16 Insulin Aspart (*Bkc) 100 Units/Ml SUB-Q 1 units HS MONICA Administration Protocol Latanoprost 1 drop 01/06/25 18:00 01/06/25 18:28 Latanoprost 0.005% Op Soln 2.5 Ml Btl EACH EYE 1 drop QPM MONICA Administration Losartan Potassium 100 mg 01/07/25 09:00 01/07/25 08:37 Losartan Potassium 100 Mg Tablet PO 100 mg DAILY MONICA Administration Morphine Sulfate 2 mg 01/06/25 14:06 Morphine Sulfate (*Crx) 2 Mg/Ml Inj IV PUSH Q1H PRN Pain Rated 7-10 IF NPO Naloxone HCl 0.1 mg 01/06/25 14:06 Naloxone Hcl 0.4 Mg/Ml Vial IV PUSH Q2M PRN Opiate Reversal Ondansetron HCl 4 mg 01/06/25 14:06 01/07/25 00:15 Ondansetron Inj 4 Mg/2 Ml Vial IV PUSH 4 mg Q4H PRN Administration Nausea And Vomiting Oxycodone HCl 2.5 mg 01/07/25 09:00 01/07/25 08:37 Oxycodone Hcl (*Crx) 2.5 Mg Tab Ir PO 2.5 mg Q4HR MONICA Administration Polyethylene Glycol 17 gm 01/07/25 09:00 01/07/25 08:37 Polyethylene Glycol 3350 17 Gm Powd.Pack PO Not Given QAM [facility] Rosuvastatin Calcium 5 mg 01/06/25 21:00 01/07/25 00:13 Rosuvastatin 5 Mg Tablet PO 5 mg HS MONICA Administration Senna/Docusate Sodium 2 tab 01/06/25 17:00 01/07/25 08:36 Senna/Docusate Sodium Tablet PO 2 tab BID MONICA Administration Vitamin B Complex 1 cap 01/07/25 09:00 01/07/25 08:36 Vitamin B Complex Capsule PO 1 cap DAILY MONICA Administration Radiology Results: ITS Impressions Knee X-Ray 01/06/25 11:48 IMPRESSION: 1. Recent right total knee arthroplasty. Labs Labs: Laboratory Results - last 24 hr 01/06/25 01/06/25 01/07/25 17:11 20:21 04:16 WBC 13.2 H RBC 3.07 L Hgb 9.0 L Hct 27.3 L MCV 88.9 MCH 29.3 MCHC 33.0 RDW 13.2 Plt Count 309 MPV 9.3 Immature Gran % (Auto) 0.7 H Neut % (Auto) 79.7 H Lymph % (Auto) 7.6 L Dickson % (Auto) 11.8 H Eos % (Auto) 0.0 Baso % (Auto) 0.2 Lymph # (Auto) 1.00 Dickson # (Auto) 1.6 H Eos # (Auto) 0.0 Baso # (Auto) 0.0 Abs Immat Gran (auto) 0.09 H Absolute Neuts (auto) 10.5 H Absolute Nucleated RBC 0.000 Nucleated RBC % 0.0 Sodium 139 Potassium 4.4 Chloride 109 H Carbon Dioxide 20 L Anion Gap 10 BUN 26 H Creatinine 1.23 H Estim Creat Clear Calc 28 Estimated GFR 42 L Glucose 198 H POC Capillary Glucose 278 H 251 H Calcium 8.4 Magnesium 1.3 L Total Bilirubin 0.3 AST 48 H ALT 31 Alkaline Phosphatase 63 Total Protein 6.0 L Albumin 3.5 01/07/25 08:07 WBC RBC Hgb Hct MCV MCH MCHC RDW Plt Count MPV Immature Gran % (Auto) Neut % (Auto) Lymph % (Auto) Dickson % (Auto) Eos % (Auto) Baso % (Auto) Lymph # (Auto) Dickson # (Auto) Eos # (Auto) Baso # (Auto) Abs Immat Gran (auto) Absolute Neuts (auto) Absolute Nucleated RBC Nucleated RBC % Sodium Potassium Chloride Carbon Dioxide Anion Gap BUN Creatinine Estim Creat Clear Calc Estimated GFR Glucose POC Capillary Glucose 172 H Calcium Magnesium Total Bilirubin AST ALT Alkaline Phosphatase Total Protein Albumin
[2025-01-07 14:39] VITALS: BP 150/63; PULSE 85; RESP 18; TEMP 36.8; O2SAT 96
[2025-01-07] MEDS: MORPHINE SULFATE (*CRX) 2 MG/ML INJ IV PUSH (15:24)
[2025-01-07 16:36] VITALS: BP 181/77; PULSE 93; TEMP 36.9; O2SAT 94
--- NOTE | 2025-01-07 16:50 | PC.NURSE ---
Patient is complaining of lots of pain even with scheduled pain medications and PRN Morphine. Patient is acutely confused. RN is not sure if it is the morphine that is causing confusion and/or if the confusion is making the pain worse. RN called LICO Lee and she is no longer present in the hospital. RN called LICO Hyatt and left a message with her. RN took vitals and did neurocheck.
[2025-01-07 17:39] VITALS: BP 170/67; PULSE 94; RESP 18; TEMP 36.7; O2SAT 93
[2025-01-07] MEDS: LATANOPROST 0.005% OP SOLN 2.5 ML BTL 1 DROP EACH EYE (18:17)
[2025-01-08] MEDS: oxyCODONE HCL (*CRX) 2.5 MG TAB IR PO ×3 (00:16→08:57)
[2025-01-08] MEDS: ACETAMINOPHEN 325 MG TABLET PO ×7 (00:17→23:42)
[2025-01-08 04:58] LABS: Hematocrit 28.2 % (37.0-47.0); Hemoglobin 9.4 g/dL (12.0-15.0); Mean Corpuscular HGB Conc 33.3 g/dl (32-36); Mean Corpuscular Hemoglobin 29.6 pg (26-34); Mean Corpuscular Volume 88.7 fl (80-100); Platelet Count Result 330 k/mm3 (150-375); Red Blood Count 3.18 M/mm3 (4.2-5.4); White Blood Count 13.1 K/mm3 (4.5-10.0)
[2025-01-08 05:12] LABS: Anion Gap 9 mmol/L (4-12); Blood Urea Nitrogen 26 mg/dL (7-17); Calcium 8.7 mg/dL (8.4-10.2); Carbon Dioxide 20 mmol/L (22-30); Chloride 107 mmol/L (98-107); Estimated CRCL calculation 31 ml/min; Estimated Glomerular Filt Rate 48; Glucose 196 mg/dL (65-110); Potassium 3.9 mmol/L (3.4-5.0); Sodium 136 mmol/L (137-145)
[2025-01-08 06:06] VITALS: BP 185/81; PULSE 95; RESP 18; TEMP 36.9; O2SAT 92
--- NOTE | 2025-01-08 07:17 | P.PNIM_ITS ---
Progress Note: A&P Assessment and Plan (1) Status post knee replacement: Qualifiers: Laterality: right Qualified Code(s): Z96.651 - Presence of right artificial knee joint Code(s): Z96.659 - Presence of unspecified artificial knee joint Status: Acute Assessment and Plan: - s/p R TKA by Dr. Andersen 01/06/25 - post-operative management per primary - PT/OT recommended SNF (2) Primary localized osteoarthritis of knees, bilateral: Code(s): M17.0 - Bilateral primary osteoarthritis of knee Status: Acute Assessment and Plan: - as above (3) Greater trochanteric pain syndrome of right lower extremity: Code(s): M25.551 - Pain in right hip Status: Acute Assessment and Plan: - patient having R hip pain, limiting rehabilitation from surgery - ortho administered cortisone injection 01/08 - monitor for improvement (4) HTN (hypertension): Code(s): I10 - Essential (primary) hypertension Status: Acute Assessment and Plan: - BP trend high in setting of pain and missed meds - continue home amlodipine, losartan. Resume HCTZ. (5) Leukocytosis: Code(s): D72.829 - Elevated white blood cell count, unspecified Status: Acute Assessment and Plan: - WBC 13 - afebrile, no signs of infectious process - likely reactive from surgery - may see increase after cortisone injection as well - monitor CBC (6) Anemia: Code(s): D64.9 - Anemia, unspecified Status: Acute Assessment and Plan: - Hgb 9.4 this AM, stable. Expected post-op - monitor CBC (7) Abnormal nuclear stress test: Code(s): R94.39 - Abnormal result of other cardiovascular function study Status: Acute Assessment and Plan: - Stress test 11/22/2024 came back abnormal with moderate size partially reversible perfusion defect of lateral wall with ejection fraction 75% and hence he underwent CT coronary at [place] which showed three-vessel coronary artery disease resulting in overall mild stenosis with up to 50% stenosis in proximal right coronary artery. Calcified left breast nodule was noted as well. Her calcium score was 628. - no chest pain - aspirin started. Continue statin. (8) Hyperlipidemia: Code(s): E78.5 - Hyperlipidemia, unspecified Status: Acute Assessment and Plan: - continue statin. (9) Diabetes: Code(s): E11.9 - Type 2 diabetes mellitus without complications Status: Acute Assessment and Plan: - hold home metformin, glimepiride - increase to medium dose SSI, may consider adding Lantus especially since patient recieved cortisone injection - POCT glucose qACHS - hypoglycemia management protocol (10) Chronic kidney disease, stage 3a: Code(s): N18.31 - Chronic kidney disease, stage 3a Status: Acute Assessment and Plan: - Cr 1.1, near baseline - monitor BMP Subjective Date/time seen: 01/08/25 07:17 Interval history: Patient is an 86 yo female admitted for R knee replacement. [facility] for medical management. Patient got confused after receiving morphine yesterday. BP trend high. Doing better this AM. Review of Systems Review of Systems: All systems reviewed & are unremarkable except as noted in HPI and below Exam Narrative: General: NAD Eyes: EOMI ENT: neck supple Cardiovascular: extremities appear well-perfused Respiratory: respirations even and unlabored on RA Gastrointestinal: Soft, non tender Genitourinary: no suprapubic tenderness Musculoskeletal: No edema. R knee incision CDI. RUE with very mild edema, erythema without tenderness or warmth Skin: warm, dry Neuro: Alert. Psych: Mood appropriate Objective Data Vital Signs Vital Signs: Vital Signs - 24 hr 01/07/25 08:00 01/07/25 09:21 01/07/25 10:44 Temperature 97.7 F Pulse Rate 80 Respiratory Rate 18 Blood Pressure 140/64 Pulse Oximetry 96 Oxygen Delivery Room Air Room Air 01/07/25 10:53 01/07/25 14:39 01/07/25 16:36 Temperature 98.2 F 98.5 F Pulse Rate 85 93 Respiratory Rate 18 Blood Pressure 150/63 H 181/77 H Pulse Oximetry 96 94 Oxygen Delivery Room Air 01/07/25 17:39 01/07/25 20:00 01/08/25 06:06 Temperature 98.1 F 98.5 F Pulse Rate 94 95 Respiratory Rate 18 18 Blood Pressure 170/67 H 185/81 H Pulse Oximetry 93 92 Oxygen Delivery Room Air Intake/Output Intake/Output: Intake & Output 01/05/25 01/06/25 01/07/25 01/08/25 23:59 23:59 23:59 23:59 Intake Total 354 1400 Output Total 300 875 Balance 54 525 Meds/Results Medications: Active Medications Generic Name Dose Route Start Last Admin Trade Name Freq PRN Reason Stop Dose Admin Acetaminophen 325 mg 01/07/25 09:00 01/08/25 04:28 Acetaminophen 325 Mg Tablet PO 325 mg Q4HR MONICA Administration Amlodipine Besylate 5 mg 01/07/25 09:00 01/07/25 08:37 Amlodipine Besylate 5 Mg Tablet PO 5 mg DAILY MONICA Administration Aspirin 81 mg 01/07/25 08:00 01/07/25 08:36 Aspirin 81 Mg Chewable Tablet PO 81 mg DAILY@0800 MONICA Administration Dextrose 12.5 gm 01/06/25 20:08 Dextrose 50% 25 Gm/50 Ml Syringe IV PUSH PRN PRN Hypoglycemia Protocol Doxycycline Hyclate 100 mg 01/07/25 09:00 01/07/25 20:16 Doxycycline Hyclate 100 Mg Tablet PO 01/17/25 08:59 100 mg Q12HR MONICA Administration Enoxaparin Sodium 30 mg 01/07/25 09:00 01/07/25 08:37 Enoxaparin 30 Mg/0.3 Ml Syringe SUB-Q 30 mg DAILY MONICA Administration Glucagon 1 mg 01/06/25 20:08 Glucagon For Inj 1 Mg Vial IM PRN PRN Hypoglycemia Protocol Glucose 15 gm 01/06/25 20:08 Glucose Oral Gel 15 Gm Of Glucse In 37.5 Gm Tube PO PRN PRN Hypoglycemia Protocol Hydrochlorothiazide 12.5 mg 01/08/25 09:00 Hydrochlorothiazide 12.5 Mg Capsule PO DAILY [facility] Dextrose 1,000 mls @ 100 mls/hr 01/06/25 20:08 Dextrose 5% 1,000 Ml IVPB PRN PRN Hypoglycemia Protocol Insulin Aspart 3 - 6 units 01/08/25 08:00 Insulin Aspart (*Bkc) 100 Units/Ml SUB-Q TIDWM MONICA Protocol Latanoprost 1 drop 01/06/25 18:00 01/07/25 18:17 Latanoprost 0.005% Op Soln 2.5 Ml Btl EACH EYE 1 drop QPM MONICA Administration Losartan Potassium 100 mg 01/07/25 09:00 01/07/25 08:37 Losartan Potassium 100 Mg Tablet PO 100 mg DAILY MONICA Administration Morphine Sulfate 2 mg 01/06/25 14:06 01/07/25 15:24 Morphine Sulfate (*Crx) 2 Mg/Ml Inj IV PUSH 2 mg Q1H PRN Administration Pain Rated 7-10 IF NPO Naloxone HCl 0.1 mg 01/06/25 14:06 Naloxone Hcl 0.4 Mg/Ml Vial IV PUSH Q2M PRN Opiate Reversal Ondansetron HCl 4 mg 01/06/25 14:06 01/07/25 16:03 Ondansetron Inj 4 Mg/2 Ml Vial IV PUSH 4 mg Q4H PRN Administration Nausea And Vomiting Oxycodone HCl 2.5 mg 01/07/25 09:00 01/08/25 04:28 Oxycodone Hcl (*Crx) 2.5 Mg Tab Ir PO 2.5 mg Q4HR MONICA Administration Polyethylene Glycol 17 gm 01/07/25 09:00 01/07/25 08:37 Polyethylene Glycol 3350 17 Gm Powd.Pack PO Not Given QAM [facility] Rosuvastatin Calcium 5 mg 01/06/25 21:00 01/07/25 20:25 Rosuvastatin 5 Mg Tablet PO 5 mg HS [facility] Administration Senna/Docusate Sodium 2 tab 01/06/25 17:00 01/07/25 18:10 Senna/Docusate Sodium Tablet PO 2 tab BID MONICA Administration Vitamin B Complex 1 cap 01/07/25 09:00 01/07/25 08:36 Vitamin B Complex Capsule PO 1 cap DAILY MONICA Administration Radiology Results: ITS Impressions Knee X-Ray 01/06/25 11:48 IMPRESSION: 1. Recent right total knee arthroplasty. Labs Labs: Laboratory Results - last 24 hr 01/07/25 01/07/25 01/07/25 08:07 12:04 17:10 WBC RBC Hgb Hct MCV MCH MCHC RDW Plt Count MPV Sodium Potassium Chloride Carbon Dioxide Anion Gap BUN Creatinine Estim Creat Clear Calc Estimated GFR Glucose POC Capillary Glucose 172 H 222 H 241 H Calcium 01/07/25 01/08/25 01/08/25 20:16 00:13 04:11 WBC 13.1 H RBC 3.18 L Hgb 9.4 L Hct 28.2 L MCV 88.7 MCH 29.6 MCHC 33.3 RDW 13.2 Plt Count 330 MPV 9.4 Sodium 136 L Potassium 3.9 Chloride 107 Carbon Dioxide 20 L Anion Gap 9 BUN 26 H Creatinine 1.10 H Estim Creat Clear Calc 31 Estimated GFR 48 L Glucose 196 H POC Capillary Glucose 202 H 189 H Calcium 8.7 Quality VTE Prophylaxis VTE prophylaxis: pharmacologic ordered
[2025-01-08 07:58] LABS: Magnesium 1.7 mg/dL (1.6-2.3)
[2025-01-08] MEDS: LOSARTAN POTASSIUM 100 MG TABLET PO (08:56)
[2025-01-08] MEDS: DOXYCYCLINE HYCLATE 100 MG TABLET PO (08:57)
[2025-01-08] MEDS: SENNA/DOCUSATE SODIUM TABLET 2 TAB PO ×2 (08:57→16:48)
[2025-01-08] MEDS: ASPIRIN 81 MG CHEWABLE TABLET PO (08:57)
[2025-01-08] MEDS: VITAMIN B COMPLEX CAPSULE 1 CAP PO (08:57)
[2025-01-08] MEDS: ENOXAPARIN 30 MG/0.3 ML SYRINGE SUB-Q (09:03)
--- NOTE | 2025-01-08 09:58 | P.PNOP_ITS ---
Progress Note: A&P Assessment and Plan (1) Status post knee replacement: Qualifiers: Laterality: right Qualified Code(s): Z96.651 - Presence of right artificial knee joint Code(s): Z96.659 - Presence of unspecified artificial knee joint Status: Acute Assessment and Plan: Patient is postoperative day 2 after right total knee arthroplasty. She is alert and conversant today. Her daughter is with her. Yesterday in the morning she ambulated to the bathroom with a walker with moderate assist of 2. This morning with a physical therapist she be transferred to the chair with a walker with moderate assist of 1 physical therapist. She takes very small steps and feels very unsteady. Yesterday she had a great deal of pain in the knee but the hip has been bothering her quite a bit. She told me that she has been having soreness in the lateral aspect of her right hip for last 6 months and being in bed these last couple of days seems to have exacerbated that. It is especially painful if she lays on the right hip. I have discussed with her that we could consider a cortisone shot and she would like to have that done as a lateral right hip pain is worse than the knee pain when she is in bed. The lateral right hip is painful getting out of bed. The soreness radiates down the lateral thigh. She states she is able to bear weight on the right leg and does not notice the lateral hip pain with weight-bearing when upright. On examination today she does have antigravity abduction strength and strength again some pressure on manual muscle testing in abduction. She has moderate to severe tenderness over the greater trochanter diffusely over an area includes the trochanteric bursa as well as the gluteus yrn insertion area. There is moderate tenderness down the length of the iliotibial band. X-rays X-rays of the right hip two views and AP pelvis were obtained this morning which demonstrate mild osteoarthritic change consistent with age tiny enthesophyte at the greater trochanter no evidence of fracture or bony destructive lesion noted on my review of the films. Radiologist's report is pending. Assessment plan Patient has trochanteric pain syndrome which is making it difficult for her to get up from a sitting position and hurting her great deal at night. She would like to try cortisone shot the trochanteric bursa. Risks of side effects discussed. It may contribute to her blood sugars going up for a few days again. After ChloraPrep prep, 3 cc of Celestone Soluspan and 6 cc of 1% lidocaine were injected into the areas of maximal tenderness and after the injection she had excellent relief the tenderness over the greater trochanter and over the upper gluteus yrn insertion area. Hopefully this will facilitate her rehabilitation as this has been bothering her quite a bit the past 6 months. She had quite a bit of nausea yesterday afternoon. She did not wish to eat her dinner as result. She had more pain yesterday and was given a dose of IV morphine 2 mg and this caused her to have some confusion. We will discontinue that. I am going to try tramadol 25 mg instead of the 2.5 mg oxycodone and see if this gives her satisfactory pain relief without so much nausea. Her right knee shows no change in the mild postoperative swelling. There is no drainage on the dressing. No ankle or calf swelling. She is using SCDs when she is in bed. Her labs this morning show hemoglobin up to 9.4. She feels she has had adequate fluid intake in the last 24 hours. Her preoperative hemoglobin was 10.9 so this is a very mild drop following a knee replacement. Platelets [id number]. Her creatinine this morning is down to 1.0, from 1.2 yesterday and her BUN is unchanged at 26. Creatinine clearance is 31. She received the Lovenox this morning. Tomorrow I plan to stop the Lovenox start her on the Eliquis 2.5 mg b.i.d. since it would appear that her creatinine clearance is going to drop significantly and appears it will hover at around 30 and she shows no signs of postoperative bleeding. I did start her on baby aspirin yesterday. 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 Patient would like to go home from the hospital but clearly she has not demonstrated that she would be safe to be at home. We did discuss the po ssibility that she may benefit from a stay in a rehab unit if she needs more time before she will be able to transfer independently. We can reassess her progress with mobility tomorrow. 30 minutes of total time was spent with her addressing the trochanteric bursitis today at the right hip. (2) Greater trochanteric pain syndrome of right lower extremity: Code(s): M25.551 - Pain in right hip Status: Acute Subjective Subjective Date/Time Seen: 01/08/25 09:58 Objective Data Vital Signs Vital Signs: Vital Signs - 24 hr 01/07/25 10:44 01/07/25 10:53 01/07/25 14:39 Temperature 36.5 C 36.8 C Pulse Rate 80 85 Respiratory Rate 18 18 Blood Pressure 140/64 150/63 H Pulse Oximetry 96 96 Oxygen Delivery Room Air 01/07/25 16:36 01/07/25 17:39 01/07/25 20:00 Temperature 36.9 C 36.7 C Pulse Rate 93 94 Respiratory Rate 18 Blood Pressure 181/77 H 170/67 H Pulse Oximetry 94 93 Oxygen Delivery Room Air 01/08/25 06:06 01/08/25 08:29 01/08/25 09:05 Temperature 36.9 C Pulse Rate 95 Respiratory Rate 18 Blood Pressure 185/81 H Pulse Oximetry 92 Oxygen Delivery Room Air Room Air Intake/Output Intake/Output: Intake & Output 01/05/25 01/06/25 01/07/25 01/08/25 23:59 23:59 23:59 23:59 Intake Total 354 1400 240 Output Total 300 875 Balance 54 525 240 Meds/Results Medications: Active Medications Generic Name Dose Route Start Last Admin Trade Name Freq PRN Reason Stop Dose Admin Acetaminophen 325 mg 01/07/25 09:00 01/08/25 08:57 Acetaminophen 325 Mg Tablet PO 325 mg Q4HR MONICA Administration Amlodipine Besylate 5 mg 01/07/25 09:00 01/08/25 08:57 Amlodipine Besylate 5 Mg Tablet PO 5 mg DAILY MONICA Administration Aspirin 81 mg 01/07/25 08:00 01/08/25 08:57 Aspirin 81 Mg Chewable Tablet PO 81 mg DAILY@0800 MONICA Administration Dextrose 12.5 gm 01/06/25 20:08 Dextrose 50% 25 Gm/50 Ml Syringe IV PUSH PRN PRN Hypoglycemia Protocol Doxycycline Hyclate 100 mg 01/07/25 09:00 01/08/25 08:57 Doxycycline Hyclate 100 Mg Tablet PO 01/17/25 08:59 100 mg Q12HR MONICA Administration Enoxaparin Sodium 30 mg 01/07/25 09:00 01/08/25 09:03 Enoxaparin 30 Mg/0.3 Ml Syringe SUB-Q 30 mg DAILY MONICA Administration Glucagon 1 mg 01/06/25 20:08 Glucagon For Inj 1 Mg Vial IM PRN PRN Hypoglycemia Protocol Glucose 15 gm 01/06/25 20:08 Glucose Oral Gel 15 Gm Of Glucse In 37.5 Gm Tube PO PRN PRN Hypoglycemia Protocol Hydrochlorothiazide 12.5 mg 01/08/25 09:00 01/08/25 08:56 Hydrochlorothiazide 12.5 Mg Capsule PO 12.5 mg DAILY MONICA Administration Dextrose 1,000 mls @ 100 mls/hr 01/06/25 20:08 Dextrose 5% 1,000 Ml IVPB PRN PRN Hypoglycemia Protocol Insulin Aspart 3 - 6 units 01/08/25 08:00 01/08/25 08:05 Insulin Aspart (*Bkc) 100 Units/Ml SUB-Q Not Given TIDWM MONICA Protocol Latanoprost 1 drop 01/06/25 18:00 01/07/25 18:17 Latanoprost 0.005% Op Soln 2.5 Ml Btl EACH EYE 1 drop QPM MONICA Administration Losartan Potassium 100 mg 01/07/25 09:00 01/08/25 08:56 Losartan Potassium 100 Mg Tablet PO 100 mg DAILY MONICA Administration Morphine Sulfate 2 mg 01/06/25 14:06 01/07/25 15:24 Morphine Sulfate (*Crx) 2 Mg/Ml Inj IV PUSH 2 mg Q1H PRN Administration Pain Rated 7-10 IF NPO Naloxone HCl 0.1 mg 01/06/25 14:06 Naloxone Hcl 0.4 Mg/Ml Vial IV PUSH Q2M PRN Opiate Reversal Ondansetron HCl 4 mg 01/06/25 14:06 01/07/25 16:03 Ondansetron Inj 4 Mg/2 Ml Vial IV PUSH 4 mg Q4H PRN Administration Nausea And Vomiting Oxycodone HCl 2.5 mg 01/07/25 09:00 01/08/25 08:57 Oxycodone Hcl (*Crx) 2.5 Mg Tab Ir PO 2.5 mg Q4HR MONICA Administration Polyethylene Glycol 17 gm 01/07/25 09:00 01/08/25 08:57 Polyethylene Glycol 3350 17 Gm Powd.Pack PO 17 gm QAM MONICA Administration Rosuvastatin Calcium 5 mg 01/06/25 21:00 01/07/25 20:25 Rosuvastatin 5 Mg Tablet PO 5 mg HS MONICA Administration Senna/Docusate Sodium 2 tab 01/06/25 17:00 01/08/25 08:57 Senna/Docusate Sodium Tablet PO 2 tab BID MONICA Administration Vitamin B Complex 1 cap 01/07/25 09:00 01/08/25 08:57 Vitamin B Complex Capsule PO 1 cap DAILY MONICA Administration Radiology Results: ITS Impressions Knee X-Ray 01/06/25 11:48 IMPRESSION: 1. Recent right total knee arthroplasty. Labs Labs: Laboratory Results - last 24 hr 01/07/25 01/07/25 01/07/25 12:04 17:10 20:16 WBC RBC Hgb Hct MCV MCH MCHC RDW Plt Count MPV Sodium Potassium Chloride Carbon Dioxide Anion Gap BUN Creatinine Estim Creat Clear Calc Estimated GFR Glucose POC Capillary Glucose 222 H 241 H 202 H Calcium Magnesium 01/08/25 01/08/25 01/08/25 00:13 04:11 07:58 WBC 13.1 H RBC 3.18 L Hgb 9.4 L Hct 28.2 L MCV 88.7 MCH 29.6 MCHC 33.3 RDW 13.2 Plt Count 330 MPV 9.4 Sodium 136 L Potassium 3.9 Chloride 107 Carbon Dioxide 20 L Anion Gap 9 BUN 26 H Creatinine 1.10 H Estim Creat Clear Calc 31 Estimated GFR 48 L Glucose 196 H POC Capillary Glucose 189 H 162 H Calcium 8.7 Magnesium 1.7
[2025-01-08] MEDS: traMADol HCL (*CRX) 25 MG TABLET PO ×2 (12:05→16:48)
[2025-01-08] MEDS: BETAMETHASONE SOD PHOS/ACETATE 30 MG/5 ML VIAL 12 MG I-ARTICULR (12:06)
[2025-01-08] MEDS: INSULIN ASPART (*BKC) 100 UNITS/ML SUB-Q ×3 (12:07→20:40)
[2025-01-08] MEDS: LIDOCAINE 1% PF INJ 5 ML VIAL INFILTRATE (12:09)
[2025-01-08 13:19] VITALS: BP 146/53; PULSE 87; RESP 18; TEMP 37.1; O2SAT 94
[2025-01-08] MEDS: LATANOPROST 0.005% OP SOLN 2.5 ML BTL 1 DROP EACH EYE (16:49)
[2025-01-08] MEDS: ROSUVASTATIN 5 MG TABLET PO (20:41)
[2025-01-08 21:02] VITALS: O2SAT 95
[2025-01-08 22:00] VITALS: BP 199/71; PULSE 87; RESP 18; TEMP 36.7; O2SAT 96
[2025-01-08 22:45] VITALS: BP 205/81
[2025-01-08 23:44] VITALS: BP 181/75
[2025-01-09] VITALS (7 sets, daily range): BP systolic 155–184; BP diastolic 66–90; PULSE 80–105; RESP 17–20; TEMP 36.6–36.8; O2SAT 96–100
[2025-01-09 04:08] LABS: Hematocrit 29.5 % (37.0-47.0); Hemoglobin 9.8 g/dL (12.0-15.0); Mean Corpuscular HGB Conc 33.2 g/dl (32-36); Mean Corpuscular Hemoglobin 29.0 pg (26-34); Mean Corpuscular Volume 87.3 fl (80-100); Platelet Count Result 317 k/mm3 (150-375); Red Blood Count 3.38 M/mm3 (4.2-5.4); White Blood Count 12.0 K/mm3 (4.5-10.0)
[2025-01-09 04:32] LABS: Alanine Aminotransferase 90 U/L (6-35); Albumin Level 3.8 g/dL (3.5-5.1); Alkaline Phosphatase 135 U/L (38-126); Anion Gap 9 mmol/L (4-12); Aspartate Amino Transferase 96 U/L (14-36); Bilirubin,Total 0.7 mg/dL (0.2-1.3); Blood Urea Nitrogen 29 mg/dL (7-17); Calcium 9.1 mg/dL (8.4-10.2); Carbon Dioxide 22 mmol/L (22-30); Chloride 103 mmol/L (98-107); Estimated CRCL calculation 36 ml/min; Estimated Glomerular Filt Rate 56; Glucose 288 mg/dL (65-110); Potassium 4.0 mmol/L (3.4-5.0); Sodium 134 mmol/L (137-145); Total Protein 6.8 g/dL (6.3-8.2)
[2025-01-09] MEDS: ACETAMINOPHEN 325 MG TABLET PO ×4 (05:24→16:11)
[2025-01-09] MEDS: traMADol HCL (*CRX) 25 MG TABLET PO ×2 (05:29→21:25)
--- NOTE | 2025-01-09 07:13 | P.PNIM_ITS ---
Progress Note: A&P Assessment and Plan (1) Status post knee replacement: Qualifiers: Laterality: right Qualified Code(s): Z96.651 - Presence of right artificial knee joint Code(s): Z96.659 - Presence of unspecified artificial knee joint Status: Acute Assessment and Plan: - s/p R TKA by Dr. Andersen 01/06/25 - post-operative management per primary - PT/OT recommended SNF. Patient wishes to go home with [facility]. (2) Primary localized osteoarthritis of knees, bilateral: Code(s): M17.0 - Bilateral primary osteoarthritis of knee Status: Acute Assessment and Plan: - as above (3) Greater trochanteric pain syndrome of right lower extremity: Code(s): M25.551 - Pain in right hip Status: Acute Assessment and Plan: - patient having R hip pain, limiting rehabilitation from surgery - ortho administered cortisone injection 01/08 - monitor for improvement (4) HTN (hypertension): Code(s): I10 - Essential (primary) hypertension Status: Acute Assessment and Plan: - BP trend high in setting of pain and missed meds - continue home losartan, HCTZ. Will increase amlodipine in setting of persistently high BP. (5) Leukocytosis: Code(s): D72.829 - Elevated white blood cell count, unspecified Status: Acute Assessment and Plan: - WBC 13, improving - afebrile, no signs of infectious process - likely reactive from surgery - monitor CBC (6) Anemia: Code(s): D64.9 - Anemia, unspecified Status: Acute Assessment and Plan: - Hgb 9.8 this AM, stable. Expected post-op - monitor CBC (7) Abnormal nuclear stress test: Code(s): R94.39 - Abnormal result of other cardiovascular function study Status: Acute Assessment and Plan: - Stress test 11/22/2024 came back abnormal with moderate size partially reversible perfusion defect of lateral wall with ejection fraction 75% and hence he underwent CT coronary at [place] which showed three-vessel coronary artery disease resulting in overall mild stenosis with up to 50% stenosis in proximal right coronary artery. Calcified left breast nodule was noted as well. Her calcium score was 628. - no chest pain - aspirin started. Continue statin. (8) Hyperlipidemia: Code(s): E78.5 - Hyperlipidemia, unspecified Status: Acute Assessment and Plan: - continue statin. (9) Diabetes: Code(s): E11.9 - Type 2 diabetes mellitus without complications Status: Acute Assessment and Plan: - hold home metformin, glimepiride - BG high in setting of steroid injection - continue medium dose SSI, start Lantus and Novlog 5u TIDWM. Titrate as needed. - POCT glucose qACHS - hypoglycemia management protocol (10) Chronic kidney disease, stage 3a: Code(s): N18.31 - Chronic kidney disease, stage 3a Status: Acute Assessment and Plan: - Cr 1.1, near baseline - monitor BMP Subjective Date/time seen: 01/09/25 07:13 Interval history: Patient is an 86 yo female admitted for R knee replacement. [facility] medicine following for medical management. Patient seen and examined up in chair. Doing better this morning. Now agreeable to rehab. Discussed elevated BP and elevated blood sugars. Review of Systems Review of Systems: All systems reviewed & are unremarkable except as noted in HPI and below Exam Narrative: General: NAD Eyes: EOMI ENT: neck supple Cardiovascular: extremities appear well-perfused Respiratory: respirations even and unlabored on RA Gastrointestinal: Soft, non tender Genitourinary: no suprapubic tenderness Musculoskeletal: No edema. R knee incision CDI. Skin: warm, dry Neuro: Alert. Psych: Mood appropriate Objective Data Vital Signs Vital Signs: Vital Signs - 24 hr 01/08/25 08:29 01/08/25 09:05 01/08/25 13:19 Temperature 98.7 F Pulse Rate 87 Respiratory Rate 18 Blood Pressure 146/53 H Pulse Oximetry 94 Oxygen Delivery Room Air Room Air 01/08/25 20:00 01/08/25 21:02 01/08/25 22:00 Temperature 98.0 F Pulse Rate 87 Respiratory Rate 18 Blood Pressure 199/71 H Pulse Oximetry 95 96 Oxygen Delivery Room Air Room Air 01/08/25 22:45 01/08/25 23:44 01/09/25 00:12 Temperature Pulse Rate Respiratory Rate Blood Pressure 205/81 H 181/75 H 169/86 H Pulse Oximetry Oxygen Delivery Intake/Output Intake/Output: Intake & Output 01/06/25 01/07/25 01/08/25 01/09/25 23:59 23:59 23:59 23:59 Intake Total 354 1400 720 Output Total 300 875 400 Balance 54 525 720 -400 Meds/Results Medications: Active Medications Generic Name Dose Route Start Last Admin Trade Name Freq PRN Reason Stop Dose Admin Acetaminophen 325 mg 01/07/25 09:00 01/09/25 05:24 Acetaminophen 325 Mg Tablet PO 325 mg Q4HR MONICA Administration Amlodipine Besylate 5 mg 01/07/25 09:00 01/08/25 08:57 Amlodipine Besylate 5 Mg Tablet PO 5 mg DAILY MONICA Administration Apixaban 2.5 mg 01/09/25 09:00 Apixaban 2.5 Mg Tablet PO Q12HR MONICA Aspirin 81 mg 01/09/25 09:00 Aspirin 81 Mg Enteric Tablet PO QAM MONICA Dextrose 12.5 gm 01/06/25 20:08 Dextrose 50% 25 Gm/50 Ml Syringe IV PUSH PRN PRN Hypoglycemia Protocol Doxycycline Hyclate 100 mg 01/09/25 09:00 Doxycycline Hyclate 100 Mg Tablet PO 01/21/25 08:59 DAILY MONICA Glucagon 1 mg 01/06/25 20:08 Glucagon For Inj 1 Mg Vial IM PRN PRN Hypoglycemia Protocol Glucose 15 gm 01/06/25 20:08 Glucose Oral Gel 15 Gm Of Glucse In 37.5 Gm Tube PO PRN PRN Hypoglycemia Protocol Hydrochlorothiazide 12.5 mg 01/08/25 09:00 01/08/25 08:56 Hydrochlorothiazide 12.5 Mg Capsule PO 12.5 mg DAILY MONICA Administration Dextrose 1,000 mls @ 100 mls/hr 01/06/25 20:08 Dextrose 5% 1,000 Ml IVPB PRN PRN Hypoglycemia Protocol Insulin Aspart 3 - 6 units 01/08/25 08:00 01/08/25 20:40 Insulin Aspart (*Bkc) 100 Units/Ml SUB-Q 6 units TIDWM MONICA Administration Protocol Latanoprost 1 drop 01/06/25 18:00 01/08/25 16:49 Latanoprost 0.005% Op Soln 2.5 Ml Btl EACH EYE 1 drop QPM MONICA Administration Losartan Potassium 100 mg 01/07/25 09:00 01/08/25 08:56 Losartan Potassium 100 Mg Tablet PO 100 mg DAILY MONICA Administration Morphine Sulfate 2 mg 01/06/25 14:06 01/07/25 15:24 Morphine Sulfate (*Crx) 2 Mg/Ml Inj IV PUSH 2 mg Q1H PRN Administration Pain Rated 7-10 IF NPO Naloxone HCl 0.1 mg 01/06/25 14:06 Naloxone Hcl 0.4 Mg/Ml Vial IV PUSH Q2M PRN Opiate Reversal Ondansetron HCl 4 mg 01/06/25 14:06 01/07/25 16:03 Ondansetron Inj 4 Mg/2 Ml Vial IV PUSH 4 mg Q4H PRN Administration Nausea And Vomiting Polyethylene Glycol 17 gm 01/07/25 09:00 01/08/25 08:57 Polyethylene Glycol 3350 17 Gm Powd.Pack PO 17 gm QAM MONICA Administration Rosuvastatin Calcium 5 mg 01/06/25 21:00 01/08/25 20:41 Rosuvastatin 5 Mg Tablet PO 5 mg HS MONICA Administration Senna/Docusate Sodium 2 tab 01/06/25 17:00 01/08/25 16:48 Senna/Docusate Sodium Tablet PO 2 tab BID MONICA Administration Tramadol HCl 25 mg 01/08/25 17:42 01/09/25 05:29 Tramadol Hcl (*Crx) 25 Mg Tablet PO 25 mg Q4H PRN Administration Pain Rated 4-6 Vitamin B Complex 1 cap 01/07/25 09:00 01/08/25 08:57 Vitamin B Complex Capsule PO 1 cap DAILY MONICA Administration Radiology Results: ITS Impressions Knee X-Ray 01/06/25 11:48 IMPRESSION: 1. Recent right total knee arthroplasty. Hip/Pelvis X-Ray 01/08/25 11:03 Impression: 1: Mild symmetric osteoarthritis of the hips. Labs Labs: Laboratory Results - last 24 hr 01/08/25 01/08/25 01/08/25 04:11 07:58 11:48 WBC RBC Hgb Hct MCV MCH MCHC RDW Plt Count MPV Sodium Potassium Chloride Carbon Dioxide Anion Gap BUN Creatinine Estim Creat Clear Calc Estimated GFR Glucose POC Capillary Glucose 162 H 227 H Calcium Magnesium 1.7 Total Bilirubin AST ALT Alkaline Phosphatase Total Protein Albumin 01/08/25 01/08/25 01/09/25 16:45 20:13 03:46 WBC 12.0 H RBC 3.38 L Hgb 9.8 L Hct 29.5 L MCV 87.3 MCH 29.0 MCHC 33.2 RDW 13.2 Plt Count 317 MPV 9.3 Sodium 134 L Potassium 4.0 Chloride 103 Carbon Dioxide 22 Anion Gap 9 BUN 29 H Creatinine 0.95 Estim Creat Clear Calc 36 Estimated GFR 56 L Glucose 288 H POC Capillary Glucose 376 H 372 H Calcium 9.1 Magnesium Total Bilirubin 0.7 AST 96 H ALT 90 H Alkaline Phosphatase 135 H Total Protein 6.8 Albumin 3.8 Quality VTE Prophylaxis VTE prophylaxis: pharmacologic ordered
--- NOTE | 2025-01-09 08:39 | P.PNOP_ITS ---
Progress Note: A&P Assessment and Plan (1) Greater trochanteric pain syndrome of right lower extremity: Code(s): M25.551 - Pain in right hip Status: Acute (2) Status post knee replacement: Qualifiers: Laterality: right Qualified Code(s): Z96.651 - Presence of right artificial knee joint Code(s): Z96.659 - Presence of unspecified artificial knee joint Status: Acute Assessment and Plan: Patient is postop day number 3 after right total knee arthroplasty. She has been tolerating the tramadol very well. She has not had any nausea for 2 days. Last evening she was resting quite comfortably and we changed the tramadol to a p.r.n. basis. Is ordered 25 mg every 4 hours as needed along with a Tylenol 325 mg scheduled. That leads to total Tylenol consumption of 1950 mg Tylenol per day. Unfortunately, knee replacements are painful and pain will tend to increase her blood pressure further and she cannot tolerate nonsteroidal anti-inflammatory medications because of her significant renal insufficiency. She does have some elevation and transaminases and therefore we will continue to keep the Tylenol at less than 2 g per day. Will recommend rechecking the transaminase last levels in 2 days make sure that these are starting to go down. If not we may need to reduce Tylenol usage further. Hemoglobin is up to 9.8. Her preoperative hemoglobin was 10.9. Platelets [id number]. It is unlikely that she is markedly dehydrated due to the fact that her creatinine is now is 0.95 and creatinine clearance is 36 GFR 56 which is the 1st time the GFR is been over the 40s range in all the times it has been checked since 2022 on the EMR. Her BUN is 29 which is slightly higher than the 26 it has been running she may be very slightly dehydrated. She complains that she feels somewhat lightheaded when she 1st gets up and that she has been having problems with near syncope episodes for the last 6 months she states. She gets a similar feeling and knows that she is going to fall and she has had some falls during the last 6 months she reports. She states she was able tolerate laying on her back last night all night which is a marked improvement in she was not having the pain lateral aspect of her right hip since the cortisone shot yesterday morning. She still gets occasional twinges of pain in the lateral right thigh that traveled to the lateral right knee. Is difficult to know whether this is due to irritation of the iliotibial band where she does have some tenderness or whether she has pain referred along this course from her lower back. Since her creatinine clearance is above 30. we will start the Eliquis 2.5 mg twice daily this morning may plan to use this for 2 weeks for DVT prophylaxis before switching her to a baby aspirin twice daily for 4 more weeks. We did start her on a baby aspirin daily after surgery because of her history of reversible ischemia and elevated coronary artery calcium score of 628 although she did not have large vessel disease to any significant degree on the CT angiogram of her heart. It is presumed she has microvascular disease causing the positive stress test. Today she is quite alert and conversant and in good spirits. I watched her with therapy again this morning. Today she was able to stand up and moved to the chair with moderate assistance of the physical therapist. Yesterday she was up the chair twice. She is stooped over and shaky for transfers. She appears very frail. The knee shows a normal mild swelling unchanged. No lower leg swelling. Her blood pressure was very high again last night, 205/81 at 10:00 p.m. and she was given IV hydralazine again. She cannot be discharged with IV hydralazine p.r.n. I am going to ask Dr. Noble who evaluated her preoperatively for assistance and improving her blood pressure control and I have placed a consult for Cardiology. Patient's progress is very slow and I think this is multifactorial. She does have chronic lower back pain as well and I think is affecting her stooped gait tendency and difficulty laying flat. She advised me she has been seeing a chiropractor twice a week for a long time. She has balance difficulties and reports that she has been her inactive these past 6 months because of her knee but also because of her lower back pain hip bursitis pain. I do not think it will be safer to be discharged home I think she would benefit from an inpatient therapy regimen. Have consulted the manager critical care unit for acute rehab placement. Her blood sugars were elevated yesterday I think this is due to the additional cortisone injection in her right hip. She is on sliding scale insulin and hopefully that will improve significantly over the next 2 days. Because of her diabetes and chronic kidney disease, she is at increased risk for infection and we are using doxycycline 100 mg daily for 2 week course for extended oral antibiotic prophylaxis. I have chosen a once daily dose because of her problems with her being so nauseated the 1st few days and since her liver enzymes are somewhat elevated. I spoke to the nurse and the nurse felt that she would be comfortable transferring her today to the chair based on how she did this morning. We do not want her to sit all day in the chair as this will promote excessive swelling in the knee which will slow her progress but she should be in a more upright position every hour while awake and I will ask the nurse to have her either up to chair for meals at least or dangling with her legs off the side of the bed sitting for several minutes every hour while awake. Also I will increase the amount of time allowed in the chair to 1 hour per session so she spends more time upright. Subjective Subjective Date/Time Seen: 01/09/25 08:39 Objective Data Vital Signs Vital Signs: Vital Signs - 24 hr 01/08/25 09:05 01/08/25 13:19 01/08/25 20:00 Temperature 37.1 C Pulse Rate 87 Respiratory Rate 18 Blood Pressure 146/53 H Pulse Oximetry 94 Oxygen Delivery Room Air Room Air 01/08/25 21:02 01/08/25 22:00 01/08/25 22:45 Temperature 36.7 C Pulse Rate 87 Respiratory Rate 18 Blood Pressure 199/71 H 205/81 H Pulse Oximetry 95 96 Oxygen Delivery Room Air 01/08/25 23:44 01/09/25 00:12 01/09/25 02:35 Temperature 36.6 C Pulse Rate 93 Respiratory Rate 18 Blood Pressure 181/75 H 169/86 H 156/88 H Pulse Oximetry 96 Oxygen Delivery 01/09/25 06:00 Temperature 36.7 C Pulse Rate 92 Respiratory Rate 18 Blood Pressure 155/90 H Pulse Oximetry 100 Oxygen Delivery Intake/Output Intake/Output: Intake & Output 01/06/25 01/07/25 01/08/25 01/09/25 23:59 23:59 23:59 23:59 Intake Total 354 1400 720 600 Output Total 674 425 9275 Balance 54 525 720 -1900 Meds/Results Medications: Active Medications Generic Name Dose Route Start Last Admin Trade Name Freq PRN Reason Stop Dose Admin Acetaminophen 325 mg 01/07/25 09:00 01/09/25 05:24 Acetaminophen 325 Mg Tablet PO 325 mg Q4HR MONICA Administration Amlodipine Besylate 5 mg 01/07/25 09:00 01/08/25 08:57 Amlodipine Besylate 5 Mg Tablet PO 5 mg DAILY MONICA Administration Apixaban 2.5 mg 01/09/25 09:00 Apixaban 2.5 Mg Tablet PO Q12HR MONICA Aspirin 81 mg 01/09/25 09:00 Aspirin 81 Mg Enteric Tablet PO QAM MONICA Dextrose 12.5 gm 01/06/25 20:08 Dextrose 50% 25 Gm/50 Ml Syringe IV PUSH PRN PRN Hypoglycemia Protocol Doxycycline Hyclate 100 mg 01/09/25 09:00 Doxycycline Hyclate 100 Mg Tablet PO 01/21/25 08:59 DAILY MONICA Glucagon 1 mg 01/06/25 20:08 Glucagon For Inj 1 Mg Vial IM PRN PRN Hypoglycemia Protocol Glucose 15 gm 01/06/25 20:08 Glucose Oral Gel 15 Gm Of Glucse In 37.5 Gm Tube PO PRN PRN Hypoglycemia Protocol Hydrochlorothiazide 12.5 mg 01/08/25 09:00 01/08/25 08:56 Hydrochlorothiazide 12.5 Mg Capsule PO 12.5 mg DAILY MONICA Administration Dextrose 1,000 mls @ 100 mls/hr 01/06/25 20:08 Dextrose 5% 1,000 Ml IVPB PRN PRN Hypoglycemia Protocol Insulin Aspart 3 - 6 units 01/08/25 08:00 01/08/25 20:40 Insulin Aspart (*Bkc) 100 Units/Ml SUB-Q 6 units TIDWM MONICA Administration Protocol Insulin Aspart 5 units 01/09/25 08:00 Insulin Aspart (*Bkc) 100 Units/Ml 0.067 units/kg (5 units) SUB-Q TIDWM MONICA Insulin Glargine 10 units 01/09/25 09:00 Insulin Glargine (*Bkc) 100 Units/Ml 0.15 units/kg (10 units) SUB-Q DAILY MONICA Latanoprost 1 drop 01/06/25 18:00 01/08/25 16:49 Latanoprost 0.005% Op Soln 2.5 Ml Btl EACH EYE 1 drop QPM MONICA Administration Losartan Potassium 100 mg 01/07/25 09:00 01/08/25 08:56 Losartan Potassium 100 Mg Tablet PO 100 mg DAILY MONICA Administration Morphine Sulfate 2 mg 01/06/25 14:06 01/07/25 15:24 Morphine Sulfate (*Crx) 2 Mg/Ml Inj IV PUSH 2 mg Q1H PRN Administration Pain Rated 7-10 IF NPO Naloxone HCl 0.1 mg 01/06/25 14:06 Naloxone Hcl 0.4 Mg/Ml Vial IV PUSH Q2M PRN Opiate Reversal Ondansetron HCl 4 mg 01/06/25 14:06 01/07/25 16:03 Ondansetron Inj 4 Mg/2 Ml Vial IV PUSH 4 mg Q4H PRN Administration Nausea And Vomiting Polyethylene Glycol 17 gm 01/07/25 09:00 01/08/25 08:57 Polyethylene Glycol 3350 17 Gm Powd.Pack PO 17 gm QAM MONICA Administration Rosuvastatin Calcium 5 mg 01/06/25 21:00 01/08/25 20:41 Rosuvastatin 5 Mg Tablet PO 5 mg HS MONICA Administration Senna/Docusate Sodium 2 tab 01/06/25 17:00 01/08/25 16:48 Senna/Docusate Sodium Tablet PO 2 tab BID MONICA Administration Tramadol HCl 25 mg 01/08/25 17:42 01/09/25 05:29 Tramadol Hcl (*Crx) 25 Mg Tablet PO 25 mg Q4H PRN Administration Pain Rated 4-6 Vitamin B Complex 1 cap 01/07/25 09:00 01/08/25 08:57 Vitamin B Complex Capsule PO 1 cap DAILY MONICA Administration Radiology Results: ITS Impressions Knee X-Ray 01/06/25 11:48 IMPRESSION: 1. Recent right total knee arthroplasty. Hip/Pelvis X-Ray 01/08/25 11:03 Impression: 1: Mild symmetric osteoarthritis of the hips. Labs Labs: Laboratory Results - last 24 hr 01/08/25 01/08/25 01/08/25 11:48 16:45 20:13 WBC RBC Hgb Hct MCV MCH MCHC RDW Plt Count MPV Sodium Potassium Chloride Carbon Dioxide Anion Gap BUN Creatinine Estim Creat Clear Calc Estimated GFR Glucose POC Capillary Glucose 227 H 376 H 372 H Calcium Total Bilirubin AST ALT Alkaline Phosphatase Total Protein Albumin 01/09/25 03:46 WBC 12.0 H RBC 3.38 L Hgb 9.8 L Hct 29.5 L MCV 87.3 MCH 29.0 MCHC 33.2 RDW 13.2 Plt Count 317 MPV 9.3 Sodium 134 L Potassium 4.0 Chloride 103 Carbon Dioxide 22 Anion Gap 9 BUN 29 H Creatinine 0.95 Estim Creat Clear Calc 36 Estimated GFR 56 L Glucose 288 H POC Capillary Glucose Calcium 9.1 Total Bilirubin 0.7 AST 96 H ALT 90 H Alkaline Phosphatase 135 H Total Protein 6.8 Albumin 3.8
[2025-01-09] MEDS: DOXYCYCLINE HYCLATE 100 MG TABLET PO (08:48)
[2025-01-09] MEDS: ASPIRIN 81 MG ENTERIC TABLET PO (08:48)
[2025-01-09] MEDS: SENNA/DOCUSATE SODIUM TABLET 2 TAB PO ×2 (08:48→16:12)
[2025-01-09] MEDS: LOSARTAN POTASSIUM 100 MG TABLET PO (08:48)
[2025-01-09] MEDS: APIXABAN 2.5 MG TABLET PO ×2 (08:48→21:26)
[2025-01-09] MEDS: INSULIN ASPART (*BKC) 100 UNITS/ML SUB-Q ×3 (08:50→11:37)
[2025-01-09] MEDS: INSULIN GLARGINE (*BKC) 100 UNITS/ML 10 UNITS SUB-Q (08:51)
[2025-01-09] MEDS: VITAMIN B COMPLEX CAPSULE 1 CAP PO (11:33)
--- NOTE | 2025-01-09 14:48 | PM.CNCAR ---
Assessment and Plan Assessment and plan (1) Hyperlipidemia: Code(s): E78.5 - Hyperlipidemia, unspecified Status: Acute Assessment and Plan: On Rosuvastatin. (2) HTN (hypertension): Code(s): I10 - Essential (primary) hypertension Status: Acute Assessment and Plan: High but very normal in office. Could be exacerbated by pain. Start Hydralazine 10 mg PO TID prn; hold if SBP<150 mmHg. (3) CAD (coronary artery disease): Code(s): I25.10 - Atherosclerotic heart disease of [place] coronary artery without angina pectoris Status: Acute Assessment and Plan: Stable. May go on aspirin but it is not definitive that it is beneficial. History of Present Illness History of Present Illness Consult date/time: 01/09/25 14:48 Reason For Visit: O A Rt Knee Narrative: 84 yr old woman who is my regular cardiology patient and a patient of Cherie Duval presented for right knee surgery and noted to have high BP. She has a history of CAD on CTA, DM, hypertension, dyslipidemia. Patient's daughter is at bedside. She had right knee surgery on 01/06/25 which was 3 days ago and did well with it. She is having some pain in knee. It was noted her BP has been high but was very normal in my office recently. Reports fatigue. She can walk short distances with her cane due to knee pains and then ESP[place]. Denies chest pain, sob, orthopnea, PND, edema, dizziness, palpitations. Cardiovascular Procedures Electrophysiology:: 12/27/24 CTA of heart at [facility]: Prox-mid 50% RCA stenosis, prox LAD 25-50% stenosis, prox-mid LCx 25-50%, Calcium score 628. 5 EKG: Sinus rhythm, PRWP, borderline T wave abnormality. Stress Tests:: 11/22/24 Lexiscan myoview: Abnormal with infarct and partial reversible ischemia of lateral wall. Review of Systems Review of Systems: All systems reviewed & are unremarkable except as noted in HPI and below Constitutional: Constitutional: Reports as per HPI, Denies chills and Denies fever(s) Cardiovascular: Cardiovascular: Reports as per HPI, Denies chest pain and Denies irregular heart rhythm Respiratory: Respiratory: Reports as per HPI and Denies dyspnea Gastrointestinal: Gastrointestinal: Reports as per HPI and Denies abdominal pain Musculoskeletal: Musculoskeletal: Reports as per HPI and Reports arthralgias Neurologic: Reports as per HPI, Denies dizziness and Denies syncope [facility] Past Medical History Medical History (Updated 01/09/25 @ 14:53 by Richard Noble DO) Glaucoma Osteoarthritis HTN (hypertension) Hyperlipidemia Diabetes Surgical History Surgical History (Updated 01/07/25 @ 10:33 by Zi Andersen MD) History of lumpectomy of left breast 2008 Family History Family History Father Heart disease Mother Diabetes mellitus Sibling , age 7 polio Polio Sibling , age 75 Heart disease Sibling , age 38, drowning Drowning Sibling Breast cancer Heart disease Social History Social History Smoking status: Never smoker Second hand tobacco smoke exposure: No Additional smoking assessment comments: DENIES ANY FORM OF TOBACCO USE Alcohol intake: never Substance use: never Substance use type: does not use Do You Feel Safe in your Home?: Yes Lack of Transportation: No Lack of Food: Never True Current Housing: I Have Housing Concerned About Future Housing: No Difficulty Paying Gas/Electric Bills: No Difficulty Paying for Meds: No Currently Unemployed: No Education: High School Diploma/GED Difficulty w/ Childcare or Family Care: No Living arrangements: with family Occupation/Education: retired 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 Gender identity (if verbalized by the patient): Female Sexual Orientation (if Verbalized by the Patient): Straight or Heterosexual Spiritual care concerns: No Meds Home Medications and Allergies Home Medications ?Medication ?Instructions ?Recorded ?Confirmed ?Type coconut oil 1,000 mg capsule 2,000 mg PO DAILY 06/20/22 11/24/24 History glucosamine-chondroitin 250 mg-200 2 tablet PO DAILY 06/20/22 01/06/25 History mg tablet (Osteo Bi-Flex) latanoprost 0.005 % eye drops 1 drp EACH EYE QPM 06/20/22 01/06/25 History vitamin B complex 1 tablet PO DAILY 06/20/22 01/06/25 History glimepiride 2 mg tablet 2 mg PO QAM #90 tabs 07/13/24 01/06/25 Rx metformin 500 mg tablet,extended 1,000 mg (2 x 500 mg) PO BID #360 08/09/24 01/06/25 Rx release 24 hr tabs hydrochlorothiazide 12.5 mg capsule 12.5 mg PO DAILY #90 caps 09/20/24 01/06/25 Rx losartan 100 mg tablet 100 mg PO DAILY #90 tabs 09/20/24 01/06/25 Rx Fiber Restore PO 09/22/24 11/24/24 History Lemon Energizer PO 09/22/24 11/24/24 History Reliv Vitamins PO 09/22/24 11/24/24 History garcnia camb 800 mg PO DAILY 09/22/24 01/06/25 History omega-3 fatty acids 1,000 mg 2,000 mg PO DAILY 09/22/24 11/24/24 History capsule acetaminophen 500 mg tablet 1,000 mg PO PRN PRN pain 11/15/24 01/06/25 History (Acetaminophen Pain Relief) rosuvastatin 5 mg tablet 5 mg PO HS 11/15/24 01/06/25 History sulfamethoxazole 800 1 tablet PO Q12H #6 tabs 11/29/24 Rx mg-trimethoprim 160 mg tablet (Bactrim DS) amlodipine 5 mg tablet 5 mg PO DAILY #90 tabs 12/27/24 01/06/25 Rx Allergies Allergy/AdvReac Type Severity Reaction Status Date / Time dapagliflozin (From [facility]) AdvReac Other Verified 01/09/25 05:40 empagliflozin (From AdvReac Other Verified 01/09/25 05:40 Jardiance) Vital Signs Vital Signs - 24 hr 01/08/25 20:00 01/08/25 21:02 01/08/25 22:00 Temperature 98.0 F Pulse Rate 87 Respiratory Rate 18 Blood Pressure 199/71 H Pulse Oximetry 95 96 Oxygen Delivery Room Air Room Air 01/08/25 22:45 01/08/25 23:44 01/09/25 00:12 Temperature Pulse Rate Respiratory Rate Blood Pressure 205/81 H 181/75 H 169/86 H Pulse Oximetry Oxygen Delivery 01/09/25 02:35 01/09/25 06:00 01/09/25 08:25 Temperature 97.8 F 98.1 F Pulse Rate 93 92 Respiratory Rate 18 18 Blood Pressure 156/88 H 155/90 H Pulse Oximetry 96 100 Oxygen Delivery Room Air Results Labs and Meds 01/09/25 03:46 01/09/25 03:46 Lab results: Cardiac Enzymes 01/09/25 Range/Units 03:46 AST 96 H (14-36) U/L CBC 01/09/25 Range/Units 03:46 WBC 12.0 H (4.5-10.0) K/mm3 RBC 3.38 L (4.2-5.4) M/mm3 Hgb 9.8 L (12.0-15.0) g/dL Hct 29.5 L (37.0-47.0) % Plt Count 317 (150-375) k/mm3 Comprehensive Metabolic Panel 01/09/25 Range/Units 03:46 Sodium 134 L (137-145) mmol/L Potassium 4.0 (3.4-5.0) mmol/L Chloride 103 (98-107) mmol/L Carbon Dioxide 22 (22-30) mmol/L BUN 29 H (7-17) mg/dL Creatinine 0.95 (0.7-1.0) mg/dL Glucose 288 H (65-110) mg/dL Calcium 9.1 (8.4-10.2) mg/dL AST 96 H (14-36) U/L ALT 90 H (6-35) U/L Alkaline Phosphatase 135 H (38-126) U/L Total Protein 6.8 (6.3-8.2) g/dL Albumin 3.8 (3.5-5.1) g/dL Intake and Output 01/08/25 01/09/25 01/09/25 23:59 07:59 15:59 Intake Total 240 600 360 Output Total 2500 Balance 240 -1900 360 Intake: Oral 240 600 360 Output: Urine 2500
[2025-01-09] MEDS: INSULIN ASPART (*BKC) 100 UNITS/ML 8 UNITS SUB-Q (17:03)
[2025-01-09] MEDS: LATANOPROST 0.005% OP SOLN 2.5 ML BTL 1 DROP EACH EYE (17:05)
[2025-01-09] MEDS: ROSUVASTATIN 5 MG TABLET PO (21:26)
[2025-01-09] MEDS: ONDANSETRON INJ 4 MG/2 ML VIAL IV PUSH (21:29)
[2025-01-10] VITALS (7 sets, daily range): BP systolic 98–172; BP diastolic 54–86; PULSE 79–91; RESP 18; TEMP 36.2–36.7; O2SAT 99–100
[2025-01-10] MEDS: ONDANSETRON INJ 4 MG/2 ML VIAL IV PUSH (01:54)
--- NOTE | 2025-01-10 06:59 | P.PNIM_ITS ---
Progress Note: A&P Assessment and Plan (1) Status post knee replacement: Qualifiers: Laterality: right Qualified Code(s): Z96.651 - Presence of right artificial knee joint Code(s): Z96.659 - Presence of unspecified artificial knee joint Status: Acute Assessment and Plan: - s/p R TKA by Dr. Andersen 01/06/25 - post-operative management per primary - PT/OT recommended SNF. Patient now agreeable for for rehab. (2) Primary localized osteoarthritis of knees, bilateral: Code(s): M17.0 - Bilateral primary osteoarthritis of knee Status: Acute Assessment and Plan: - as above (3) Greater trochanteric pain syndrome of right lower extremity: Code(s): M25.551 - Pain in right hip Status: Acute Assessment and Plan: - patient having R hip pain, limiting rehabilitation from surgery - ortho administered cortisone injection 01/08 - monitor for improvement (4) Elevated LFTs: Code(s): R79.89 - Other specified abnormal findings of blood chemistry Status: Acute Assessment and Plan: - AST 95, ALT 118, alk phos 130, t bili normal - denies abdominal pain - could be due to BP fluctuations, medications - may need to consider holding Tylenol - if continues to worsen, obtain RUQ (5) HTN (hypertension): Code(s): I10 - Essential (primary) hypertension Status: Acute Assessment and Plan: - BP trend high in setting of pain and missed meds - continue home losartan, HCTZ. Ortho consulted cardio who added hydralazine PRN (6) Leukocytosis: Code(s): D72.829 - Elevated white blood cell count, unspecified Status: Acute Assessment and Plan: - WBC 11, improving - afebrile, no signs of infectious process - likely reactive from surgery - monitor CBC (7) Anemia: Code(s): D64.9 - Anemia, unspecified Status: Acute Assessment and Plan: - Hgb 9.2 this AM, overall stable. Expected post-op - monitor CBC (8) Abnormal nuclear stress test: Code(s): R94.39 - Abnormal result of other cardiovascular function study Status: Acute Assessment and Plan: - Stress test 11/22/2024 came back abnormal with moderate size partially reversible perfusion defect of lateral wall with ejection fraction 75% and hence he underwent CT coronary at [place] which showed three-vessel coronary artery disease resulting in overall mild stenosis with up to 50% stenosis in proximal right coronary artery. Calcified left breast nodule was noted as well. Her calcium score was 628. - no chest pain - aspirin started. Continue statin. (9) Hyperlipidemia: Code(s): E78.5 - Hyperlipidemia, unspecified Status: Acute Assessment and Plan: - continue statin. (10) Diabetes: Code(s): E11.9 - Type 2 diabetes mellitus without complications Status: Acute Assessment and Plan: - hold home metformin, glimepiride - BG high in setting of steroid injection - continue medium dose SSI, start Lantus and Novlog 8u TIDWM. Titrate as needed. - POCT glucose qACHS - hypoglycemia management protocol (11) Chronic kidney disease, stage 3a: Code(s): N18.31 - Chronic kidney disease, stage 3a Status: Acute Assessment and Plan: - Cr 1.1, near baseline - monitor BMP Subjective Date/time seen: 01/10/25 06:59 Interval history: Patient is an 86 yo female admitted for R knee replacement. [facility] medicine following for medical management. Patient seen and examined at bedside. Discussed elevated LFTs. Patient denies abdominal pain. Review of Systems Review of Systems: All systems reviewed & are unremarkable except as noted in HPI and below Exam Narrative: General: NAD Eyes: EOMI ENT: neck supple Cardiovascular: regular rate and rhythm Respiratory: CTA bilaterally, even and unlabored on RA Gastrointestinal: Soft, non tender Genitourinary: no suprapubic tenderness Musculoskeletal: No edema. R knee incision CDI. Skin: warm, dry Neuro: Alert. Psych: Mood appropriate Objective Data Vital Signs Vital Signs: Vital Signs - 24 hr 01/09/25 08:25 01/09/25 15:25 01/09/25 20:00 Temperature 98.3 F Pulse Rate 105 H Respiratory Rate 18 Blood Pressure 184/87 H Pulse Oximetry 96 Oxygen Delivery Room Air Room Air Fraction of Inspired Oxygen 01/09/25 20:01 01/09/25 21:17 01/09/25 22:16 Temperature 98.0 F Pulse Rate 89 81 80 Respiratory Rate 17 20 Blood Pressure 184/66 H Pulse Oximetry 97 96 Oxygen Delivery Room Air Fraction of Inspired Oxygen 21 01/10/25 04:21 Temperature 98.1 F Pulse Rate 91 Respiratory Rate 18 Blood Pressure 136/80 Pulse Oximetry 99 Oxygen Delivery Fraction of Inspired Oxygen Intake/Output Intake/Output: Intake & Output 01/07/25 01/08/25 01/09/25 01/10/25 23:59 23:59 23:59 23:59 Intake Total 8243 955 9826 100 Output Total 875 2650 400 Balance 525 720 -1400 -300 Meds/Results Medications: Active Medications Generic Name Dose Route Start Last Admin Trade Name Freq PRN Reason Stop Dose Admin Acetaminophen 325 mg 01/07/25 09:00 01/10/25 06:17 Acetaminophen 325 Mg Tablet PO Not Given Q4HR [facility] Amlodipine Besylate 5 mg 01/10/25 09:00 Amlodipine Besylate 5 Mg Tablet PO DAILY [facility] Apixaban 2.5 mg 01/09/25 09:00 01/09/25 21:26 Apixaban 2.5 Mg Tablet PO 2.5 mg Q12HR [facility] Administration Aspirin 81 mg 01/09/25 09:00 01/09/25 08:48 Aspirin 81 Mg Enteric Tablet PO 81 mg QAM [facility] Administration Carvedilol 6.25 mg 01/09/25 21:00 01/09/25 22:16 Carvedilol 6.25 Mg Tablet PO 6.25 mg Q12HR [facility] Administration Dextrose 12.5 gm 01/06/25 20:08 Dextrose 50% 25 Gm/50 Ml Syringe IV PUSH PRN PRN Hypoglycemia Protocol Doxycycline Hyclate 100 mg 01/09/25 09:00 01/09/25 08:48 Doxycycline Hyclate 100 Mg Tablet PO 01/21/25 08:59 100 mg DAILY [facility] Administration Glucagon 1 mg 01/06/25 20:08 Glucagon For Inj 1 Mg Vial IM PRN PRN Hypoglycemia Protocol Glucose 15 gm 01/06/25 20:08 Glucose Oral Gel 15 Gm Of Glucse In 37.5 Gm Tube PO PRN PRN Hypoglycemia Protocol Hydralazine HCl 10 mg 01/09/25 17:00 01/09/25 17:03 Hydralazine 10 Mg Tablet PO 10 mg TID [facility] Administration Hydrochlorothiazide 12.5 mg 01/08/25 09:00 01/09/25 08:48 Hydrochlorothiazide 12.5 Mg Capsule PO 12.5 mg DAILY [facility] Administration Dextrose 1,000 mls @ 100 mls/hr 01/06/25 20:08 Dextrose 5% 1,000 Ml IVPB PRN PRN Hypoglycemia Protocol Insulin Aspart 3 - 6 units 01/08/25 08:00 01/09/25 16:53 Insulin Aspart (*Bkc) 100 Units/Ml SUB-Q Not Given TIDWM [facility] Protocol Insulin Aspart 8 units 01/09/25 12:00 01/09/25 17:03 Insulin Aspart (*Bkc) 100 Units/Ml SUB-Q 8 units TIDWM [facility] Administration Insulin Glargine 10 units 01/09/25 09:00 01/09/25 08:51 Insulin Glargine (*Bkc) 100 Units/Ml 0.15 units/kg (10 units) 10 units SUB-Q Administration DAILY [facility] Latanoprost 1 drop 01/06/25 18:00 01/09/25 17:05 Latanoprost 0.005% Op Soln 2.5 Ml Btl EACH EYE 1 drop QPM [facility] Administration Losartan Potassium 100 mg 01/07/25 09:00 01/09/25 08:48 Losartan Potassium 100 Mg Tablet PO 100 mg DAILY [facility] Administration Miscellaneous Information 1 each 01/09/25 00:01 01/09/25 13:04 Senna/Docusate Daily Order Duplicates A 2 Tabs Bid Order Already Active On Profile. D/C On XX 02/08/25 00:00 Not Given CLARIFY [facility]ICA Morphine Sulfate 2 mg 01/06/25 14:06 01/07/25 15:24 Morphine Sulfate (*Crx) 2 Mg/Ml Inj IV PUSH 2 mg Q1H PRN Administration Pain Rated 7-10 IF NPO Naloxone HCl 0.1 mg 01/06/25 14:06 Naloxone Hcl 0.4 Mg/Ml Vial IV PUSH Q2M PRN Opiate Reversal Ondansetron HCl 4 mg 01/06/25 14:06 01/10/25 01:54 Ondansetron Inj 4 Mg/2 Ml Vial IV PUSH 4 mg Q4H PRN Administration Nausea And Vomiting Polyethylene Glycol 17 gm 01/07/25 09:00 01/09/25 08:48 Polyethylene Glycol 3350 17 Gm Powd.Pack PO 17 gm QAM [facility] Administration Rosuvastatin Calcium 5 mg 01/06/25 21:00 01/09/25 21:26 Rosuvastatin 5 Mg Tablet PO 5 mg HS [facility] Administration Senna/Docusate Sodium 2 tab 01/06/25 17:00 01/09/25 16:12 Senna/Docusate Sodium Tablet PO 2 tab BID [facility] Administration Senna/Docusate Sodium 1 tab 01/10/25 09:00 Senna/Docusate Sodium Tablet PO DAILY [facility] Tramadol HCl 25 mg 01/08/25 17:42 01/09/25 21:25 Tramadol Hcl (*Crx) 25 Mg Tablet PO 25 mg Q4H PRN Administration Pain Rated 4-6 Vitamin B Complex 1 cap 01/07/25 09:00 01/09/25 11:33 Vitamin B Complex Capsule PO 1 cap DAILY [facility] Administration Radiology Results: ITS Impressions Knee X-Ray 01/06/25 11:48 IMPRESSION: 1. Recent right total knee arthroplasty. Hip/Pelvis X-Ray 01/08/25 11:03 Impression: 1: Mild symmetric osteoarthritis of the hips. Labs Labs: Laboratory Results - last 24 hr 01/08/25 01/09/25 01/09/25 20:13 08:03 11:28 POC Capillary Glucose 372 H 246 H 364 H 01/09/25 01/09/25 16:39 19:57 POC Capillary Glucose 188 H 255 H Quality VTE Prophylaxis VTE prophylaxis: pharmacologic ordered
[2025-01-10 07:26] LABS: Hematocrit 27.3 % (37.0-47.0); Hemoglobin 9.2 g/dL (12.0-15.0); Immature Granulocyte Percent A 0.5 % (0-0.5); Lymphocytes Absolute Auto 0.88 K/mm3 (0.9-3.2); Mean Corpuscular HGB Conc 33.7 g/dl (32-36); Mean Corpuscular Hemoglobin 29.3 pg (26-34); Mean Corpuscular Volume 86.9 fl (80-100); Nucleated Red Blood Cells Absolute Auto 0.000 K/mm3 (0.0-0.012); Nucleated Red Blood Cells Perc 0.0 % (0.0-0.2); Platelet Count Result 349 k/mm3 (150-375); Red Blood Count 3.14 M/mm3 (4.2-5.4); White Blood Count 11.0 K/mm3 (4.5-10.0)
[2025-01-10 07:52] LABS: Alanine Aminotransferase 118 U/L (6-35); Albumin Level 3.3 g/dL (3.5-5.1); Alkaline Phosphatase 130 U/L (38-126); Anion Gap 7 mmol/L (4-12); Aspartate Amino Transferase 95 U/L (14-36); Bilirubin,Total 0.6 mg/dL (0.2-1.3); Blood Urea Nitrogen 38 mg/dL (7-17); Calcium 8.5 mg/dL (8.4-10.2); Carbon Dioxide 24 mmol/L (22-30); Chloride 103 mmol/L (98-107); Estimated CRCL calculation 32 ml/min; Estimated Glomerular Filt Rate 50; Glucose 240 mg/dL (65-110); Potassium 3.9 mmol/L (3.4-5.0); Sodium 134 mmol/L (137-145); Total Protein 6.1 g/dL (6.3-8.2)
--- NOTE | 2025-01-10 07:53 | P.PNCA_ITS ---
Progress Note: A&P Assessment and Plan (1) Hyperlipidemia: Code(s): E78.5 - Hyperlipidemia, unspecified Status: Acute Assessment and Plan: On Rosuvastatin. (2) HTN (hypertension): Code(s): I10 - Essential (primary) hypertension Status: Acute Assessment and Plan: Improved. but very normal in office. Could be exacerbated by pain. On Hydralazine 10 mg PO TID prn; hold if SBP<150 mmHg. Started Carvedilolo 6.25 mg BID last night. (3) CAD (coronary artery disease): Code(s): I25.10 - Atherosclerotic heart disease of [place] coronary artery without angina pectoris Status: Acute Assessment and Plan: Stable. May go on aspirin but it is not definitive that it is beneficial. Subjective Date/time seen: 01/10/25 07:53 Interval history: Has intermittent knee pain with movement. Had a BMP last night and felt better. Denies chest pain or sob. Exam Const: General: cooperative, healthy appearing and comfortable Resp: Auscultation: clear to auscultation bilaterally, no crackles, no rales, no rhonchi and no wheezes Cardio: Rate: regular rate Rhythm: regular rhythm Heart sounds: no murmurs Peripheral pulses: dorsalis pedis present GI: GI Palp: No abdominal tenderness and Yes Soft to palpation Neuro: General: oriented to person, oriented to place and oriented to time Extrem: Right lower extremity: no edema Left lower extremity: no edema Objective Data Vital Signs Vital Signs: Vital Signs - 24 hr 01/09/25 08:25 01/09/25 15:25 01/09/25 20:00 Temperature 98.3 F Pulse Rate 105 H Respiratory Rate 18 Blood Pressure 184/87 H Pulse Oximetry 96 Oxygen Delivery Room Air Room Air Fraction of Inspired Oxygen 01/09/25 20:01 01/09/25 21:17 01/09/25 22:16 Temperature 98.0 F Pulse Rate 89 81 80 Respiratory Rate 17 20 Blood Pressure 184/66 H Pulse Oximetry 97 96 Oxygen Delivery Room Air Fraction of Inspired Oxygen 21 01/10/25 04:21 Temperature 98.1 F Pulse Rate 91 Respiratory Rate 18 Blood Pressure 136/80 Pulse Oximetry 99 Oxygen Delivery Fraction of Inspired Oxygen Intake/Output Intake/Output: Intake & Output 01/07/25 01/08/25 01/09/25 01/10/25 23:59 23:59 23:59 23:59 Intake Total 4703 458 0345 100 Output Total 877 6546 400 Balance 525 724 -1400 -759 Meds/Results Medications: Active Medications Generic Name Dose Route Start Last Admin Trade Name Freq PRN Reason Stop Dose Admin Acetaminophen 325 mg 01/07/25 09:00 01/10/25 06:17 Acetaminophen 325 Mg Tablet PO Not Given Q4HR [facility] Amlodipine Besylate 5 mg 01/10/25 09:00 Amlodipine Besylate 5 Mg Tablet PO DAILY [facility] Apixaban 2.5 mg 01/09/25 09:00 01/09/25 21:26 Apixaban 2.5 Mg Tablet PO 2.5 mg Q12HR [facility] Administration Aspirin 81 mg 01/09/25 09:00 01/09/25 08:48 Aspirin 81 Mg Enteric Tablet PO 81 mg QAM [facility] Administration Carvedilol 6.25 mg 01/09/25 21:00 01/09/25 22:16 Carvedilol 6.25 Mg Tablet PO 6.25 mg Q12HR [facility] Administration Dextrose 12.5 gm 01/06/25 20:08 Dextrose 50% 25 Gm/50 Ml Syringe IV PUSH PRN PRN Hypoglycemia Protocol Doxycycline Hyclate 100 mg 01/09/25 09:00 01/09/25 08:48 Doxycycline Hyclate 100 Mg Tablet PO 01/21/25 08:59 100 mg DAILY [facility] Administration Glucagon 1 mg 01/06/25 20:08 Glucagon For Inj 1 Mg Vial IM PRN PRN Hypoglycemia Protocol Glucose 15 gm 01/06/25 20:08 Glucose Oral Gel 15 Gm Of Glucse In 37.5 Gm Tube PO PRN PRN Hypoglycemia Protocol Hydralazine HCl 10 mg 01/09/25 17:00 01/09/25 17:03 Hydralazine 10 Mg Tablet PO 10 mg TID [facility] Administration Hydrochlorothiazide 12.5 mg 01/08/25 09:00 01/09/25 08:48 Hydrochlorothiazide 12.5 Mg Capsule PO 12.5 mg DAILY [facility] Administration Dextrose 1,000 mls @ 100 mls/hr 01/06/25 20:08 Dextrose 5% 1,000 Ml IVPB PRN PRN Hypoglycemia Protocol Insulin Aspart 3 - 6 units 01/08/25 08:00 01/09/25 16:53 Insulin Aspart (*Bkc) 100 Units/Ml SUB-Q Not Given TIDWM COUNTS INCLUDE [facility] BEDS AT [facility] Protocol Insulin Aspart 8 units 01/09/25 12:00 01/09/25 17:03 Insulin Aspart (*Bkc) 100 Units/Ml SUB-Q 8 units TIDWM [facility] Administration Insulin Glargine 10 units 01/09/25 09:00 01/09/25 08:51 Insulin Glargine (*Bkc) 100 Units/Ml 0.15 units/kg (10 units) 10 units SUB-Q Administration DAILY [facility] Latanoprost 1 drop 01/06/25 18:00 01/09/25 17:05 Latanoprost 0.005% Op Soln 2.5 Ml Btl EACH EYE 1 drop QPM [facility] Administration Losartan Potassium 100 mg 01/07/25 09:00 01/09/25 08:48 Losartan Potassium 100 Mg Tablet PO 100 mg DAILY [facility] Administration Morphine Sulfate 2 mg 01/06/25 14:06 01/07/25 15:24 Morphine Sulfate (*Crx) 2 Mg/Ml Inj IV PUSH 2 mg Q1H PRN Administration Pain Rated 7-10 IF NPO Naloxone HCl 0.1 mg 01/06/25 14:06 Naloxone Hcl 0.4 Mg/Ml Vial IV PUSH Q2M PRN Opiate Reversal Ondansetron HCl 4 mg 01/06/25 14:06 01/10/25 01:54 Ondansetron Inj 4 Mg/2 Ml Vial IV PUSH 4 mg Q4H PRN Administration Nausea And Vomiting Polyethylene Glycol 17 gm 01/07/25 09:00 01/09/25 08:48 Polyethylene Glycol 3350 17 Gm Powd.Pack PO 17 gm QAM [facility] Administration Rosuvastatin Calcium 5 mg 01/06/25 21:00 01/09/25 21:26 Rosuvastatin 5 Mg Tablet PO 5 mg HS [facility] Administration Senna/Docusate Sodium 2 tab 01/06/25 17:00 01/09/25 16:12 Senna/Docusate Sodium Tablet PO 2 tab BID [facility] Administration Tramadol HCl 25 mg 01/08/25 17:42 01/09/25 21:25 Tramadol Hcl (*Crx) 25 Mg Tablet PO 25 mg Q4H PRN Administration Pain Rated 4-6 Vitamin B Complex 1 cap 01/07/25 09:00 01/09/25 11:33 Vitamin B Complex Capsule PO 1 cap DAILY [facility] Administration Radiology Results: ITS Impressions Knee X-Ray 01/06/25 11:48 IMPRESSION: 1. Recent right total knee arthroplasty. Hip/Pelvis X-Ray 01/08/25 11:03 Impression: 1: Mild symmetric osteoarthritis of the hips. Labs Labs: Laboratory Results - last 24 hr 01/09/25 01/09/25 01/09/25 08:03 11:28 16:39 WBC RBC Hgb Hct MCV MCH MCHC RDW Plt Count MPV Immature Gran % (Auto) Neut % (Auto) Lymph % (Auto) Gilchrist % (Auto) Eos % (Auto) Baso % (Auto) Lymph # (Auto) [place]christ # (Auto) Eos # (Auto) Baso # (Auto) Abs Immat Gran (auto) Absolute Neuts (auto) Absolute Nucleated RBC Nucleated RBC % Sodium Potassium Chloride Carbon Dioxide Anion Gap BUN Creatinine Estim Creat Clear Calc Estimated GFR Glucose POC Capillary Glucose 246 H 364 H 188 H Calcium Total Bilirubin AST ALT Alkaline Phosphatase Total Protein Albumin 01/09/25 01/10/25 19:57 07:16 WBC 11.0 H RBC 3.14 L Hgb 9.2 L Hct 27.3 L MCV 86.9 MCH 29.3 MCHC 33.7 RDW 13.3 Plt Count 349 MPV 9.2 Immature Gran % (Auto) 0.5 Neut % (Auto) 83.7 H Lymph % (Auto) 8.0 L Gilchrist % (Auto) 7.7 Eos % (Auto) 0.0 Baso % (Auto) 0.1 L Lymph # (Auto) 0.88 L Gilchrist # (Auto) 0.9 H Eos # (Auto) 0.0 Baso # (Auto) 0.0 Abs Immat Gran (auto) 0.05 H Absolute Neuts (auto) 9.2 H Absolute Nucleated RBC 0.000 Nucleated RBC % 0.0 Sodium 134 L Potassium 3.9 Chloride 103 Carbon Dioxide 24 Anion Gap 7 BUN 38 H Creatinine 1.05 H Estim Creat Clear Calc 32 Estimated GFR 50 L Glucose 240 H POC Capillary Glucose 255 H Calcium 8.5 Total Bilirubin 0.6 AST 95 H ALT 118 H Alkaline Phosphatase 130 H Total Protein 6.1 L Albumin 3.3 L
[2025-01-10] MEDS: SENNA/DOCUSATE SODIUM TABLET 2 TAB PO (08:21)
[2025-01-10] MEDS: VITAMIN B COMPLEX CAPSULE 1 CAP PO (08:21)
[2025-01-10] MEDS: APIXABAN 2.5 MG TABLET PO ×2 (08:25→21:00)
[2025-01-10] MEDS: ASPIRIN 81 MG ENTERIC TABLET PO (08:25)
[2025-01-10] MEDS: LOSARTAN POTASSIUM 100 MG TABLET PO (08:26)
[2025-01-10] MEDS: INSULIN ASPART (*BKC) 100 UNITS/ML 8 UNITS SUB-Q (08:26)
[2025-01-10] MEDS: DOXYCYCLINE HYCLATE 100 MG TABLET PO (08:26)
[2025-01-10] MEDS: INSULIN ASPART (*BKC) 100 UNITS/ML SUB-Q ×2 (08:27→17:27)
[2025-01-10] MEDS: INSULIN GLARGINE (*BKC) 100 UNITS/ML 10 UNITS SUB-Q (08:27)
[2025-01-10] MEDS: ACETAMINOPHEN 325 MG TABLET PO ×4 (08:31→22:54)
--- NOTE | 2025-01-10 12:56 | P.PNOP_ITS ---
Progress Note: A&P Assessment and Plan (1) Status post knee replacement: Qualifiers: Laterality: right Qualified Code(s): Z96.651 - Presence of right artificial knee joint Code(s): Z96.659 - Presence of unspecified artificial knee joint Status: Acute Assessment and Plan: Patient is postop day 4. After total knee replacement right knee. She had GI distress in the middle of the night around 1:00 a.m. and had a large bowel movement and felt much better afterwards. This is her 1st bowel movement of significance in surgery. She denies any chest pain or chest pressure heaviness. Dr. Noble saw her yesterday and placed an order for t.i.d. hydralazine 10 mg and started her on carvedilol 6.25 mg q.12 hours last evening. He noted that when he saw her in the office her blood pressure was in the 110's so she did not seem to have high blood pressure prior to coming in the hospital but the 1st blood pressure they have with anesthesia was 141 systolic before surgery. This morning her blood pressure was 172/80 at 8:00 a.m. but after physical therapy 95 systolic. She did walk to the bathroom and back to her chair without difficulty today which is an improvement but she felt too lightheaded to go to the hallway. Her right hip pain has seems to be resolved for now diagnosis greater trochan teric pain syndrome right hip. Cortisone shot helped. Blood sugars have been elevated but trending down the last 24 hours compared to the prior 24 hours likely due to the cortisone injection. She is on sliding scale insulin. She has minimal swelling about the knee no swelling in the foot ankle or calf today. No blood on the dressing. She is not hurting at rest with her right knee but she does have pains with therapy. With respect to pain control, she feels that she could cut back a little bit and this may improve her feeling of nausea and wooziness intermittently that she had prior to the initiation of the new blood pressure medication. I am going to reduce her Tylenol to 325 mg q.6 hours and the tramadol to 25 mg q.6 hours p.r.n.. Labs were ordered by the hospitalist this morning and show persistent elevation of alkaline phosphatase ALT and AST without significant change compared with the day before. Will see if reducing the Tylenol little bit more helps. I will order labs for 2 days from today. Her creatinine is 1.05 centrally unchanged and stable, creatinine clearance 32, and hemoglobin is unchanged at 9.2. Platelets 349,000. Patient is looking into going to the acute rehab unit and has been advised that they should know within 2 days. Will plan on ordering new labs on Friday and continue with physical therapy in house with close observation until that time. Subjective Subjective Date/Time Seen: 01/10/25 12:56 Objective Data Vital Signs Vital Signs: Vital Signs - 24 hr 01/09/25 15:25 01/09/25 20:00 01/09/25 20:01 Temperature 36.8 C 36.7 C Pulse Rate 105 H 89 Respiratory Rate 18 17 Blood Pressure 184/87 H 184/66 H Pulse Oximetry 96 97 Oxygen Delivery Room Air Fraction of Inspired Oxygen 01/09/25 21:17 01/09/25 22:16 01/10/25 04:21 Temperature 36.7 C Pulse Rate 81 80 91 Respiratory Rate 20 18 Blood Pressure 136/80 Pulse Oximetry 96 99 Oxygen Delivery Room Air Fraction of Inspired Oxygen 21 01/10/25 08:21 01/10/25 08:30 01/10/25 08:37 Temperature Pulse Rate 84 85 Respiratory Rate Blood Pressure 172/86 H Pulse Oximetry Oxygen Delivery Room Air Fraction of Inspired Oxygen 01/10/25 11:20 01/10/25 11:21 Temperature Pulse Rate Respiratory Rate Blood Pressure 98/54 L 124/56 L Pulse Oximetry Oxygen Delivery Fraction of Inspired Oxygen Intake/Output Intake/Output: Intake & Output 01/07/25 01/08/25 01/09/25 01/10/25 23:59 23:59 23:59 23:59 Intake Total 6718 106 7820 220 Output Total 875 2650 400 Balance 525 720 -1400 -180 Meds/Results Medications: Active Medications Generic Name Dose Route Start Last Admin Trade Name Freq PRN Reason Stop Dose Admin Acetaminophen 325 mg 01/10/25 12:55 Acetaminophen 325 Mg Tablet PO Q6H MONICA Amlodipine Besylate 5 mg 01/10/25 09:00 01/10/25 08:25 Amlodipine Besylate 5 Mg Tablet PO 5 mg DAILY MONICA Administration Apixaban 2.5 mg 01/09/25 09:00 01/10/25 08:25 Apixaban 2.5 Mg Tablet PO 2.5 mg Q12HR MONICA Administration Aspirin 81 mg 01/09/25 09:00 01/10/25 08:25 Aspirin 81 Mg Enteric Tablet PO 81 mg QAM MONICA Administration Carvedilol 6.25 mg 01/09/25 21:00 01/10/25 08:21 Carvedilol 6.25 Mg Tablet PO 6.25 mg Q12HR MONICA Administration Dextrose 12.5 gm 01/06/25 20:08 Dextrose 50% 25 Gm/50 Ml Syringe IV PUSH PRN PRN Hypoglycemia Protocol Doxycycline Hyclate 100 mg 01/09/25 09:00 01/10/25 08:26 Doxycycline Hyclate 100 Mg Tablet PO 01/21/25 08:59 100 mg DAILY MONICA Administration Glucagon 1 mg 01/06/25 20:08 Glucagon For Inj 1 Mg Vial IM PRN PRN Hypoglycemia Protocol Glucose 15 gm 01/06/25 20:08 Glucose Oral Gel 15 Gm Of Glucse In 37.5 Gm Tube PO PRN PRN Hypoglycemia Protocol Hydralazine HCl 10 mg 01/09/25 17:00 01/10/25 12:26 Hydralazine 10 Mg Tablet PO Not Given TID [facility] Hydrochlorothiazide 12.5 mg 01/08/25 09:00 01/10/25 08:21 Hydrochlorothiazide 12.5 Mg Capsule PO 12.5 mg DAILY MONICA Administration Dextrose 1,000 mls @ 100 mls/hr 01/06/25 20:08 Dextrose 5% 1,000 Ml IVPB PRN PRN Hypoglycemia Protocol Insulin Aspart 3 - 6 units 01/08/25 08:00 01/10/25 12:02 Insulin Aspart (*Bkc) 100 Units/Ml SUB-Q Not Given TIDWM [facility] Protocol Insulin Aspart 8 units 01/09/25 12:00 01/10/25 12:29 Insulin Aspart (*Bkc) 100 Units/Ml SUB-Q Not Given TIDWM [facility] Insulin Glargine 10 units 01/09/25 09:00 01/10/25 08:27 Insulin Glargine (*Bkc) 100 Units/Ml 0.15 units/kg (10 units) 10 units SUB-Q Administration DAILY [facility] Latanoprost 1 drop 01/06/25 18:00 01/09/25 17:05 Latanoprost 0.005% Op Soln 2.5 Ml Btl EACH EYE 1 drop QPM MONICA Administration Losartan Potassium 100 mg 01/07/25 09:00 01/10/25 08:26 Losartan Potassium 100 Mg Tablet PO 100 mg DAILY [facility]ICA Administration Morphine Sulfate 2 mg 01/06/25 14:06 01/07/25 15:24 Morphine Sulfate (*Crx) 2 Mg/Ml Inj IV PUSH 2 mg Q1H PRN Administration Pain Rated 7-10 IF NPO Naloxone HCl 0.1 mg 01/06/25 14:06 Naloxone Hcl 0.4 Mg/Ml Vial IV PUSH Q2M PRN Opiate Reversal Ondansetron HCl 4 mg 01/06/25 14:06 01/10/25 01:54 Ondansetron Inj 4 Mg/2 Ml Vial IV PUSH 4 mg Q4H PRN Administration Nausea And Vomiting Polyethylene Glycol 17 gm 01/07/25 09:00 01/10/25 08:26 Polyethylene Glycol 3350 17 Gm Powd.Pack PO 17 gm QAM MONICA Administration Rosuvastatin Calcium 5 mg 01/06/25 21:00 01/09/25 21:26 Rosuvastatin 5 Mg Tablet PO 5 mg HS MONICA Administration Senna/Docusate Sodium 2 tab 01/06/25 17:00 01/10/25 08:21 Senna/Docusate Sodium Tablet PO 2 tab BID MONICA Administration Tramadol HCl 25 mg 01/10/25 12:54 Tramadol Hcl (*Crx) 25 Mg Tablet PO Q6H PRN Pain Rated 4-6 Vitamin B Complex 1 cap 01/07/25 09:00 01/10/25 08:21 Vitamin B Complex Capsule PO 1 cap DAILY MONICA Administration Radiology Results: ITS Impressions Knee X-Ray 01/06/25 11:48 IMPRESSION: 1. Recent right total knee arthroplasty. Hip/Pelvis X-Ray 01/08/25 11:03 Impression: 1: Mild symmetric osteoarthritis of the hips. Labs Labs: Laboratory Results - last 24 hr 01/09/25 01/09/25 01/10/25 16:39 19:57 07:16 WBC 11.0 H RBC 3.14 L Hgb 9.2 L Hct 27.3 L MCV 86.9 MCH 29.3 MCHC 33.7 RDW 13.3 Plt Count 349 MPV 9.2 Immature Gran % (Auto) 0.5 Neut % (Auto) 83.7 H Lymph % (Auto) 8.0 L [place] % (Auto) 7.7 Eos % (Auto) 0.0 Baso % (Auto) 0.1 L Lymph # (Auto) 0.88 L [place] # (Auto) 0.9 H Eos # (Auto) 0.0 Baso # (Auto) 0.0 Abs Immat Gran (auto) 0.05 H Absolute Neuts (auto) 9.2 H Absolute Nucleated RBC 0.000 Nucleated RBC % 0.0 Sodium 134 L Potassium 3.9 Chloride 103 Carbon Dioxide 24 Anion Gap 7 BUN 38 H Creatinine 1.05 H Estim Creat Clear Calc 32 Estimated GFR 50 L Glucose 240 H POC Capillary Glucose 188 H 255 H Calcium 8.5 Total Bilirubin 0.6 AST 95 H ALT 118 H Alkaline Phosphatase 130 H Total Protein 6.1 L Albumin 3.3 L 01/10/25 01/10/25 07:52 11:49 WBC RBC Hgb Hct MCV MCH MCHC RDW Plt Count MPV Immature Gran % (Auto) Neut % (Auto) Lymph % (Auto) [place] % (Auto) Eos % (Auto) Baso % (Auto) Lymph # (Auto) [place] # (Auto) Eos # (Auto) Baso # (Auto) Abs Immat Gran (auto) Absolute Neuts (auto) Absolute Nucleated RBC Nucleated RBC % Sodium Potassium Chloride Carbon Dioxide Anion Gap BUN Creatinine Estim Creat Clear Calc Estimated GFR Glucose POC Capillary Glucose 217 H 146 H Calcium Total Bilirubin AST ALT Alkaline Phosphatase Total Protein Albumin
[2025-01-10] MEDS: LATANOPROST 0.005% OP SOLN 2.5 ML BTL 1 DROP EACH EYE (17:26)
[2025-01-10] MEDS: ROSUVASTATIN 5 MG TABLET PO (20:25)
[2025-01-11] MEDS: ACETAMINOPHEN 325 MG TABLET PO ×2 (05:48→11:54)
[2025-01-11 06:09] VITALS: BP 153/73; PULSE 74; RESP 18; TEMP 36.7; O2SAT 97
--- NOTE | 2025-01-11 08:08 | PM.PNCARD ---
Progress Note: A&P Assessment and Plan (1) Hyperlipidemia: Code(s): E78.5 - Hyperlipidemia, unspecified Status: Acute Assessment and Plan: On Rosuvastatin. (2) HTN (hypertension): Code(s): I10 - Essential (primary) hypertension Status: Acute Assessment and Plan: Stable. Could be exacerbated by pain. Stop Carvedilol and Hydralazine. Monitor BP. (3) CAD (coronary artery disease): Code(s): I25.10 - Atherosclerotic heart disease of [place] coronary artery without angina pectoris Status: Acute Assessment and Plan: Stable. May go on aspirin but it is not definitive that it is beneficial. Subjective Date/time seen: 01/11/25 08:08 Interval history: Denies chest pain or sob. Minimal knee pain. Exam Const: General: cooperative, healthy appearing and comfortable Orientation/consciousness: oriented to person, oriented to place and oriented to time Resp: Auscultation: clear to auscultation bilaterally, no crackles, no rales, no rhonchi and no wheezes Cardio: Rate: regular rate Rhythm: regular rhythm Heart sounds: no murmurs Peripheral pulses: dorsalis pedis present Neuro: General: oriented to person, oriented to place and oriented to time Extrem: Right lower extremity: no edema Left lower extremity: no edema Objective Data Vital Signs Vital Signs: Vital Signs - 24 hr 01/10/25 08:21 01/10/25 08:30 01/10/25 08:37 Temperature Pulse Rate 84 85 Respiratory Rate Blood Pressure 172/86 H Pulse Oximetry Oxygen Delivery Room Air 01/10/25 11:20 01/10/25 11:21 01/10/25 13:18 Temperature 97.2 F L Pulse Rate 80 Respiratory Rate 18 Blood Pressure 98/54 L 124/56 L 118/58 L Pulse Oximetry 100 Oxygen Delivery 01/10/25 20:00 01/10/25 20:25 01/11/25 06:09 Temperature 98.1 F Pulse Rate 79 74 Respiratory Rate 18 Blood Pressure 153/73 H Pulse Oximetry 97 Oxygen Delivery Room Air Intake/Output Intake/Output: Intake & Output 01/08/25 01/09/25 01/10/25 01/11/25 23:59 23:59 23:59 23:59 Intake Total 720 1250 580 Output Total 2650 600 Balance 720 -1400 -20 Meds/Results Medications: Active Medications Generic Name Dose Route Start Last Admin Trade Name [place] PRN Reason Stop Dose Admin Acetaminophen 325 mg 01/10/25 18:00 01/11/25 05:48 Acetaminophen 325 Mg Tablet PO 325 mg Q6H MONICA Administration Amlodipine Besylate 5 mg 01/10/25 09:00 01/10/25 08:25 Amlodipine Besylate 5 Mg Tablet PO 5 mg DAILY MONICA Administration Apixaban 2.5 mg 01/09/25 09:00 01/10/25 21:00 Apixaban 2.5 Mg Tablet PO 2.5 mg Q12HR MONICA Administration Aspirin 81 mg 01/09/25 09:00 01/10/25 08:25 Aspirin 81 Mg Enteric Tablet PO 81 mg QAM MONICA Administration Dextrose 12.5 gm 01/06/25 20:08 Dextrose 50% 25 Gm/50 Ml Syringe IV PUSH PRN PRN Hypoglycemia Protocol Doxycycline Hyclate 100 mg 01/09/25 09:00 01/10/25 08:26 Doxycycline Hyclate 100 Mg Tablet PO 01/21/25 08:59 100 mg DAILY MONICA Administration Glucagon 1 mg 01/06/25 20:08 Glucagon For Inj 1 Mg Vial IM PRN PRN Hypoglycemia Protocol Glucose 15 gm 01/06/25 20:08 Glucose Oral Gel 15 Gm Of Glucse In 37.5 Gm Tube PO PRN PRN Hypoglycemia Protocol Hydrochlorothiazide 12.5 mg 01/08/25 09:00 01/10/25 08:21 Hydrochlorothiazide 12.5 Mg Capsule PO 12.5 mg DAILY MONICA Administration Dextrose 1,000 mls @ 100 mls/hr 01/06/25 20:08 Dextrose 5% 1,000 Ml IVPB PRN PRN Hypoglycemia Protocol Insulin Aspart 3 - 6 units 01/08/25 08:00 01/10/25 17:27 Insulin Aspart (*Bkc) 100 Units/Ml SUB-Q 3 units TIDWM MONICA Administration Protocol Insulin Aspart 8 units 01/09/25 12:00 01/10/25 17:24 Insulin Aspart (*Bkc) 100 Units/Ml SUB-Q Not Given TIDWM [facility] Insulin Glargine 10 units 01/09/25 09:00 01/10/25 08:27 Insulin Glargine (*Bkc) 100 Units/Ml 0.15 units/kg (10 units) 10 units SUB-Q Administration DAILY MONICA Latanoprost 1 drop 01/06/25 18:00 01/10/25 17:26 Latanoprost 0.005% Op Soln 2.5 Ml Btl EACH EYE 1 drop QPM MONICA Administration Losartan Potassium 100 mg 01/07/25 09:00 01/10/25 08:26 Losartan Potassium 100 Mg Tablet PO 100 mg DAILY MONICA Administration Morphine Sulfate 2 mg 01/06/25 14:06 01/07/25 15:24 Morphine Sulfate (*Crx) 2 Mg/Ml Inj IV PUSH 2 mg Q1H PRN Administration Pain Rated 7-10 IF NPO Naloxone HCl 0.1 mg 01/06/25 14:06 Naloxone Hcl 0.4 Mg/Ml Vial IV PUSH Q2M PRN Opiate Reversal Ondansetron HCl 4 mg 01/06/25 14:06 01/10/25 01:54 Ondansetron Inj 4 Mg/2 Ml Vial IV PUSH 4 mg Q4H PRN Administration Nausea And Vomiting Polyethylene Glycol 17 gm 01/07/25 09:00 01/10/25 08:26 Polyethylene Glycol 3350 17 Gm Powd.Pack PO 17 gm QAM MONICA Administration Rosuvastatin Calcium 5 mg 01/06/25 21:00 01/10/25 20:25 Rosuvastatin 5 Mg Tablet PO 5 mg HS MONICA Administration Senna/Docusate Sodium 2 tab 01/06/25 17:00 01/10/25 17:25 Senna/Docusate Sodium Tablet PO Not Given BID MONICA Tramadol HCl 25 mg 01/10/25 12:54 Tramadol Hcl (*Crx) 25 Mg Tablet PO Q6H PRN Pain Rated 4-6 Vitamin B Complex 1 cap 01/07/25 09:00 01/10/25 08:21 Vitamin B Complex Capsule PO 1 cap DAILY MONICA Administration Radiology Results: ITS Impressions Knee X-Ray 01/06/25 11:48 IMPRESSION: 1. Recent right total knee arthroplasty. Hip/Pelvis X-Ray 01/08/25 11:03 Impression: 1: Mild symmetric osteoarthritis of the hips. Labs Labs: Laboratory Results - last 24 hr 01/10/25 01/10/25 11:49 16:29 POC Capillary Glucose 146 H 218 H
[2025-01-11] MEDS: LOSARTAN POTASSIUM 100 MG TABLET PO (08:23)
[2025-01-11] MEDS: ASPIRIN 81 MG ENTERIC TABLET PO (08:24)
[2025-01-11] MEDS: VITAMIN B COMPLEX CAPSULE 1 CAP PO (08:24)
[2025-01-11] MEDS: APIXABAN 2.5 MG TABLET PO (08:24)
[2025-01-11] MEDS: DOXYCYCLINE HYCLATE 100 MG TABLET PO (08:24)
[2025-01-11] MEDS: INSULIN ASPART (*BKC) 100 UNITS/ML 8 UNITS SUB-Q (08:28)
[2025-01-11] MEDS: INSULIN GLARGINE (*BKC) 100 UNITS/ML 10 UNITS SUB-Q (08:29)
[2025-01-11] MEDS: INSULIN ASPART (*BKC) 100 UNITS/ML SUB-Q (08:29)
--- NOTE | 2025-01-11 09:47 | PM.PNORT ---
Progress Note: A&P Assessment and Plan (1) Status post knee replacement: Qualifiers: Laterality: right Qualified Code(s): Z96.651 - Presence of right artificial knee joint Code(s): Z96.659 - Presence of unspecified artificial knee joint Status: Acute Assessment and Plan: Patient is doing better. Yesterday afternoon she was able to walk into the hallway about a quarter [address] around the hallway trach before feeling that she was suddenly we can about a fall and the therapist helped her back. She has been having these episodes since about 1 or 2 months prior to her admission to the hospital. She states she has been relying heavily on the cane for the last month prior to her admission because of these episodes. Associated with these episodes she feels a strange abdominal sensation and feels lightheaded and feels that she is about to fall and she announced is that she is going to fall and someone has to help her. The explanation for these episodes is not yet clear. It sounds like her blood pressure is dropping and that these are near syncopal episodes. I contacted Dr. Noble this morning and spoke to him about this and we discussed the option of ordering a Holter monitor to determine whether these episodes are associated with cardiac arrhythmia. Patient otherwise is doing very well. She is completely alert and oriented and in good spirits and she is eager to go to the acute rehab unit for more intensive therapy. Her knee incision is dry. There is no blood on the dressing. She has a Mepilex in place. She has mild swelling in the knee minimal swelling in the right calf compared to the left which I think is normal at this stage particularly since she has been out of bed much more over the last 24 hours. Her appetite is good. She had a normal bowel movement this morning at her usual time. Later yesterday morning her systolic blood pressure at [address] only 98[address] Noble saw her this morning and discontinue the p.r.n. hydralazine and the scheduled carvedilol. He recommended monitoring her blood pressure. Her blood sugars are still running a little bit high on the sliding scale insulin. Hopefully converting her back to her normal oral regimen of metformin and glyburide will be more effective. Patient's pain has been vastly improved. She has not requested a tramadol since yesterday and has no discomfort her right knee at rest. I discussed her that she likely will need to take pain medication periodically in order to tolerate the range of motion exercises which are necessary to prevent stiffness. Will order a CMP tomorrow and 1 week after that to monitor her liver function enzymes which will hopefully return to normal. Subjective Subjective Date/Time Seen: 01/11/25 09:48 Objective Data Vital Signs Vital Signs: Vital Signs - 24 hr 01/10/25 11:20 01/10/25 11:21 01/10/25 13:18 Temperature 36.2 C L Pulse Rate 80 Respiratory Rate 18 Blood Pressure 98/54 L 124/56 L 118/58 L Pulse Oximetry 100 Oxygen Delivery 01/10/25 20:00 01/10/25 20:25 01/11/25 06:09 Temperature 36.7 C Pulse Rate 79 74 Respiratory Rate 18 Blood Pressure 153/73 H Pulse Oximetry 97 Oxygen Delivery Room Air Intake/Output Intake/Output: Intake & Output 01/08/25 01/09/25 01/10/25 01/11/25 23:59 23:59 23:59 23:59 Intake Total 720 1250 580 240 Output Total 2650 600 Balance 720 -1400 -20 240 Meds/Results Medications: Active Medications Generic Name Dose Route Start Last Admin Trade Name Freq PRN Reason Stop Dose Admin Acetaminophen 325 mg 01/10/25 18:00 01/11/25 05:48 Acetaminophen 325 Mg Tablet PO 325 mg Q6H MONICA Administration Amlodipine Besylate 5 mg 01/10/25 09:00 01/11/25 08:24 Amlodipine Besylate 5 Mg Tablet PO 5 mg DAILY MONICA Administration Apixaban 2.5 mg 01/09/25 09:00 01/11/25 08:24 Apixaban 2.5 Mg Tablet PO 2.5 mg Q12HR MONICA Administration Dextrose 12.5 gm 01/06/25 20:08 Dextrose 50% 25 Gm/50 Ml Syringe IV PUSH PRN PRN Hypoglycemia Protocol Doxycycline Hyclate 100 mg 01/09/25 09:00 01/11/25 08:24 Doxycycline Hyclate 100 Mg Tablet PO 01/21/25 08:59 100 mg DAILY MONICA Administration Glucagon 1 mg 01/06/25 20:08 Glucagon For Inj 1 Mg Vial IM PRN PRN Hypoglycemia Protocol Glucose 15 gm 01/06/25 20:08 Glucose Oral Gel 15 Gm Of Glucse In 37.5 Gm Tube PO PRN PRN Hypoglycemia Protocol Hydrochlorothiazide 12.5 mg 01/08/25 09:00 01/11/25 08:24 Hydrochlorothiazide 12.5 Mg Capsule PO 12.5 mg DAILY MONICA Administration Dextrose 1,000 mls @ 100 mls/hr 01/06/25 20:08 Dextrose 5% 1,000 Ml IVPB PRN PRN Hypoglycemia Protocol Insulin Aspart 3 - 6 units 01/08/25 08:00 01/11/25 08:29 Insulin Aspart (*Bkc) 100 Units/Ml SUB-Q 4 units TIDWM MONICA Administration Protocol Insulin Aspart 8 units 01/09/25 12:00 01/11/25 08:28 Insulin Aspart (*Bkc) 100 Units/Ml SUB-Q 8 units TIDWM MONICA Administration Insulin Glargine 10 units 01/09/25 09:00 01/11/25 08:29 Insulin Glargine (*Bkc) 100 Units/Ml 0.15 units/kg (10 units) 10 units SUB-Q Administration DAILY [facility] Latanoprost 1 drop 01/06/25 18:00 01/10/25 17:26 Latanoprost 0.005% Op Soln 2.5 Ml Btl EACH EYE 1 drop QPM MONICA Administration Losartan Potassium 100 mg 01/07/25 09:00 01/11/25 08:23 Losartan Potassium 100 Mg Tablet PO 100 mg DAILY MONICA Administration Morphine Sulfate 2 mg 01/06/25 14:06 01/07/25 15:24 Morphine Sulfate (*Crx) 2 Mg/Ml Inj IV PUSH 2 mg Q1H PRN Administration Pain Rated 7-10 IF NPO Naloxone HCl 0.1 mg 01/06/25 14:06 Naloxone Hcl 0.4 Mg/Ml Vial IV PUSH Q2M PRN Opiate Reversal Ondansetron HCl 4 mg 01/06/25 14:06 01/10/25 01:54 Ondansetron Inj 4 Mg/2 Ml Vial IV PUSH 4 mg Q4H PRN Administration Nausea And Vomiting Polyethylene Glycol 17 gm 01/07/25 09:00 01/11/25 08:23 Polyethylene Glycol 3350 17 Gm Powd.Pack PO Not Given QAM [facility] Rosuvastatin Calcium 5 mg 01/06/25 21:00 01/10/25 20:25 Rosuvastatin 5 Mg Tablet PO 5 mg HS MONICA Administration Senna/Docusate Sodium 2 tab 01/06/25 17:00 01/11/25 08:23 Senna/Docusate Sodium Tablet PO Not Given BID [facility] Tramadol HCl 25 mg 01/10/25 12:54 Tramadol Hcl (*Crx) 25 Mg Tablet PO Q6H PRN Pain Rated 4-6 Vitamin B Complex 1 cap 01/07/25 09:00 01/11/25 08:24 Vitamin B Complex Capsule PO 1 cap DAILY MONICA Administration Radiology Results: ITS Impressions Knee X-Ray 01/06/25 11:48 IMPRESSION: 1. Recent right total knee arthroplasty. Hip/Pelvis X-Ray 01/08/25 11:03 Impression: 1: Mild symmetric osteoarthritis of the hips. Labs Labs: Laboratory Results - last 24 hr 01/10/25 01/10/25 01/11/25 11:49 16:29 08:20 POC Capillary Glucose 146 H 218 H 255 H
--- NOTE | 2025-01-11 10:02 | PM.DS ---
DS: Admitting Diagnosis Discharge Date 01/11/2025 Admitting Diagnosis Osteoarthritis right knee DS: Discharge Diagnosis Discharge Diagnosis (1) Greater trochanteric pain syndrome of right lower extremity: Code(s): M25.551 - Pain in right hip Status: Acute (2) Status post knee replacement: Qualifiers: Laterality: right Qualified Code(s): Z96.651 - Presence of right artificial knee joint Code(s): Z96.659 - Presence of unspecified artificial knee joint Status: Acute (3) Osteoarthritis of right knee: Qualifiers: Osteoarthritis type: primary Qualified Code(s): M17.11 - Unilateral primary osteoarthritis, right knee Code(s): M17.11 - Unilateral primary osteoarthritis, right knee Status: Acute DS: Summary Hospital Course Hospital Course: Patient underwent total knee arthroplasty on 01/06/2025. Her postoperative course has been significant for being very weak and unable to tolerate ambulation other than transferring bed to chair for the 1st 2 days. The 1st day she had severe nausea and then that improved. The 2nd day she was complaining of severe pain in the greater trochanteric bursa of the right hip which has been bothering her for the last 6 months the making it very difficult for her to rest in bed and a cortisone injection was given which gave excellent relief of the symptoms by the next day. Patient's renal status has remained stable. Patient's hemoglobin varied between 9.0-9.8 postoperatively consistent with mild exacerbation of her pre-existing anemia due to postoperative blood loss associated with knee replacement. Her preop hemoglobin was 10.9. Patient has had elevated blood sugars on the sliding scale insulin likely exacerbated by cortisone injection in the left knee during surgery and in the right greater trochanteric bursa. She was not felt to be a good candidate for nonsteroidal anti-inflammatory medications to oral to control the inflammation at the right hip due to her significant renal insufficiency and was not felt to be able to tolerate stronger doses of narcotics. She was switched to tramadol 25 mg q.4 hours which did sedate her a little bit and it has been switched to p.r.n. with better control of her pain being accomplished and she is tolerating that very well now with low-dose Tylenol. She was noted to have elevation of transaminases. This is likely multifactorial associated with her anesthesia, high blood pressure and various medications. Since her renal status has been stable we are using Eliquis 2.5 mg twice daily for DVT prophylaxis. Patient was quite hypertensive at times and Dr. Noble who saw her preoperatively was consulted and prescribed p.r.n. oral hydralazine and also started her on carvedilol 6.25 mg q.12 hours. Unfortunately yesterday morning she had a systolic blood pressure of 98 at 11:00 a.m. therefore the carvedilol and p.r.n. hydralazine have since been discontinued. Her blood pressure seems to be at its baseline now. Preoperatively when she saw Dr. beasley her systolic blood pressure was 115 in the office but on several checks prior to that during the last 6 months it has been systolic in the 140s and 150s on numerous occasions. She is now on her normal blood pressure medication regimen. Patient still has episodes where she feels lightheaded suddenly and this is associated with a feeling in her stomach a queasy feeling and she feels that she is about to fall. She has been experiencing these episodes she reports since at least 1 month prior to admission. I spoke with Dr. Noble about this this morning and he is going to order a Holter monitor for her while she is in rehab to make sure that these episodes which are likely near syncopal episodes and likely associated with drop in her blood pressure, are not associated with an arrhythmia. Time Spent with Patient Time attestation: Total time spent providing and/or coordinating discharge services: DS: Data Data Completed and Pending Labs on day of discharge: Labs from last 24 hours 01/11/25 01/10/25 01/10/25 08:20 16:29 11:49 POC Capillary Glucose 255 H 218 H 146 H Discharge Plan Discharge Attending physician on discharge: Zi Andersen Consulting providers: Bailey Garcia; Rosa Shankar; Richard Noble Discharging Clinician: Zi Andersen Patient Disposition: [facility] Activity: may shower Diet: diabetic Wound Care Instructions: follow printed instructions Discharge Instructions: l POST-OPERATIVE DISCHARGE INSTRUCTIONS TOTAL KNEE ARTHROPLASTY 1. When resting, do not rest in the chair.When resting, lie on your back, with back flat on the couch or bed, with leg elevated above heart to minimize swelling. You may put a pillow under your head. . Significant swelling could indicate a blood clot and if this occurs call the office (or go to the ER) to have a venous ultrasound. Therefore, do not rest in a chair. 2. At least five times a day spend several minutes stretching your knee into flexion while sitting in the chair and also stretching your knee out straight The abilities to bend your knee fully and straighten your knee fully are two most important knee functions to focus on during your recovery. 3. It is ok to sit in chair to eat, use the toilet and receive a guest and to do your stretching exercises, but, sitting in a chair will cause your leg to swell. Therefore, avoid additional time sitting in the chair. and don't rest in the chair. 4. Wound Care: Nursing will give you an additional Mepilex dressing at the time of discharge. Patient to remove the dressing and apply a new Mepilex dressing at home 7 days after surgery and leave the dressing on until seen in office. It is normal to see a small amount of blood on the silver pad of the Mepilex dressing. Its designed to hold small spots of blood. However, if the blood reaches the edge of the pad up to the boarder of the clear membrane that surrounds the pad, the pad is saturated and the Mepilex dressing should be removed and a new Mepilex/Aquacell dressing should be applied. 5. May shower with a Mepilex dressing in place.The water will run off the dressing. 6. Unless you are told otherwise, you may put full weight on your operated leg. Use a walker for balance and practice walking as normally as you can, ideally for a few minutes every hour while you are awake. 7. I would advise against putting ice packs on your knee incision. Ice constricts blood flow which can impar healing of the knee incision. 8. Use incentive spirometer every hour while awake during the first week to fully expand your lungs. IMPORTANT: Remember not to sit in the chair for more than 30 minutes at a time. As a rule, during the first 14 days after surgery, only sit in the chair to work on the chair knee bending stretch exercise, for meals or for use of the restroom. Sitting in the chair promotes significant swelling in the knee and leg which will make your knee stiff and more painful and which simulates having a blood clot in the veins of the leg. If this type of significant diffuse swelling occurs, an ultrasound at the hospital will be necessary to rule out a blood clot. Be up walking around with the walker for a few minutes every hour while awake and then rest laying on your back on the couch or in bed with your leg elevated on cushions or pillows. Do not rest in the chair. Following the last dose of Eliquis: Start 81 mg chewable baby aspirin every 12 hours for 28 more days CMP on 01/12/2025 and on 01/19/2025. Dr. Noble has ordered a Holter monitor for her. Please implement this as ordered. Call Dr. Noble's office to determine when he would like to see her in follow-up Q.i.d. glucose fingerstick checks. Follow-up appointment with Dr. Andersen is FridayJanuary 18 at 1:00 pm at his office Please document blood pressure and heart rate 3 times a day Patient Instructions: Apixaban (By mouth) Patient Language: Slovak Follow-up/Referrals: Richard Noble DO [Physician, Cardiology] Zi Andersen MD [Physician, Orthopedics] Discharge Medications: New acetaminophen [Tylenol] 325 mg tablet 325 mg PO Q4H PRN (Reason: pain) Qty: 90 0RF polyethylene glycol 3350 [Miralax] 17 gram Powder In Packet 17 g PO QAM Qty: 30 0RF sennosides-docusate sodium [Senokot-S] 8.6-50 mg Tablet 2 tab PO BID Qty: 100 0RF doxycycline hyclate 100 mg Tablet 100 mg PO DAILY Qty: 9 0RF Eliquis 2.5 mg Tablet 2.5 mg PO Q12HR Qty: 20 0RF tramadol 25 mg tablet 25 mg PO Q4H PRN (Reason: Pain Rated 4-6) Qty: 60 0RF Continued latanoprost 0.005 % drops 1 drp EACH EYE QPM vitamin B complex Tablet 1 tablet PO DAILY rosuvastatin 5 mg tablet 5 mg PO HS glimepiride 2 mg tablet 2 mg PO QAM Qty: 90 1RF Rx Instructions: administer with breakfast metformin 500 mg tablet extended release 24 hr 1,000 mg PO BID Qty: 360 1RF hydrochlorothiazide 12.5 mg capsule 12.5 mg PO DAILY Qty: 90 1RF losartan 100 mg tablet 100 mg PO DAILY Qty: 90 1RF amlodipine 5 mg tablet 5 mg PO DAILY Qty: 90 0RF Held coconut oil 1,000 mg capsule 2,000 mg PO DAILY Hold Instructions: Resume on 01/25/25. glucosamine-chondroitin [Osteo Bi-Flex] 250-200 mg tablet 2 tablet PO DAILY Hold Instructions: Resume on 01/25/25. Rx Instructions: give after food/meal omega-3 fatty acids 1,000 mg capsule 2,000 mg PO DAILY Hold Instructions: Resume on 01/25/25. garcnia camb 800 mg PO DAILY Hold Instructions: Resume on 01/25/25. Rx Instructions: 800mg QD Reliv Vitamins PO Hold Instructions: Resume on 01/25/25. Rx Instructions: one scoop daily Fiber Restore PO Hold Instructions: Until no longer taking the MiraLax/docusate senna sides regimen Rx Instructions: once scoop daily Lemon Energizer PO Hold Instructions: Resume on 01/25/25. Rx Instructions: one scoop daily Discontinued acetaminophen [Acetaminophen Pain Relief] 500 mg tablet 1,000 mg PO PRN PRN (Reason: pain) sulfamethoxazole-trimethoprim [Bactrim DS] 800-160 mg tablet 1 tablet PO Q12H Qty: 6 0RF Date of admission: 01/09/25 12:57 Primary Care Provider: Cherie Duval Admitting Provider: Zi Andersen Attending physician on admission: Zi Andersen Condition: Stable
--- NOTE | 2025-01-11 11:49 | P.PNIM_ITS ---
Progress Note: A&P Assessment and Plan (1) Status post knee replacement: Qualifiers: Laterality: right Qualified Code(s): Z96.651 - Presence of right artificial knee joint Code(s): Z96.659 - Presence of unspecified artificial knee joint Status: Acute Assessment and Plan: - s/p R TKA by Dr. Andersen 01/06/25 - post-operative management per primary - PT/OT recommended SNF. Patient discharging to [facility]. (2) Primary localized osteoarthritis of knees, bilateral: Code(s): M17.0 - Bilateral primary osteoarthritis of knee Status: Acute Assessment and Plan: - as above (3) Greater trochanteric pain syndrome of right lower extremity: Code(s): M25.551 - Pain in right hip Status: Acute Assessment and Plan: - patient having R hip pain, limiting rehabilitation from surgery - ortho administered cortisone injection 01/08 - monitor for improvement (4) Elevated LFTs: Code(s): R79.89 - Other specified abnormal findings of blood chemistry Status: Acute Assessment and Plan: - AST 95, ALT 118, alk phos 130, t bili normal - denies abdominal pain - could be due to BP fluctuations, medications - agree with rechecking tomorrow and monitoring in the rehab setting. Ortho stopped Tylenol. (5) HTN (hypertension): Code(s): I10 - Essential (primary) hypertension Status: Acute Assessment and Plan: - BP trend high in setting of pain and missed meds - continue home losartan, HCTZ. Ortho consulted cardio who added hydralazine PRN - BP still high, but improved this AM (6) Leukocytosis: Code(s): D72.829 - Elevated white blood cell count, unspecified Status: Acute Assessment and Plan: - WBC 11, improving - afebrile, no signs of infectious process - likely reactive from surgery - monitor CBC (7) Anemia: Code(s): D64.9 - Anemia, unspecified Status: Acute Assessment and Plan: - Hgb 9.2 01/10/25, overall stable. Expected post-op - monitor CBC (8) Abnormal nuclear stress test: Code(s): R94.39 - Abnormal result of other cardiovascular function study Status: Acute Assessment and Plan: - Stress test 11/22/2024 came back abnormal with moderate size partially reversible perfusion defect of lateral wall with ejection fraction 75% and hence he underwent CT coronary at [place] which showed three-vessel coronary artery disease resulting in overall mild stenosis with up to 50% stenosis in proximal right coronary artery. Calcified left breast nodule was noted as well. Her calcium score was 628. - no chest pain - aspirin started. Continue statin. (9) Hyperlipidemia: Code(s): E78.5 - Hyperlipidemia, unspecified Status: Acute Assessment and Plan: - continue statin. (10) Diabetes: Code(s): E11.9 - Type 2 diabetes mellitus without complications Status: Acute Assessment and Plan: - suspect glucose will continue to improve as effects from steroid injection dissipate. -recommend resuming metformin and glimepiride at [facility]. Can monitor BG qACHS and add sliding scale if needed. (11) Chronic kidney disease, stage 3a: Code(s): N18.31 - Chronic kidney disease, stage 3a Status: Acute Assessment and Plan: - Cr 1.1, near baseline - monitor BMP Subjective Date/time seen: 01/11/25 11:49 Interval history: Patient seen and examined up in chair. Eager to get to rehab. Denies acute complaints. Patient is medically stable for discharge from a hospital medicine standpoint. Review of Systems Review of Systems: All systems reviewed & are unremarkable except as noted in HPI and below Exam Narrative: General: NAD Eyes: EOMI ENT: neck supple Cardiovascular: regular rate and rhythm Respiratory: CTA bilaterally, even and unlabored on RA Gastrointestinal: Soft, non tender Genitourinary: no suprapubic tenderness Musculoskeletal: No edema. R knee dressing CDI. Skin: warm, dry Neuro: Alert. Psych: Mood appropriate Objective Data Vital Signs Vital Signs: Vital Signs - 24 hr 01/10/25 13:18 01/10/25 20:00 01/10/25 20:25 Temperature 97.2 F L Pulse Rate 80 79 Respiratory Rate 18 Blood Pressure 118/58 L Pulse Oximetry 100 Oxygen Delivery Room Air 01/11/25 06:09 01/11/25 08:30 Temperature 98.1 F Pulse Rate 74 Respiratory Rate 18 Blood Pressure 153/73 H Pulse Oximetry 97 Oxygen Delivery Room Air Intake/Output Intake/Output: Intake & Output 01/08/25 01/09/25 01/10/25 01/11/25 23:59 23:59 23:59 23:59 Intake Total 720 1250 580 240 Output Total 2650 600 Balance 720 -1400 -20 240 Meds/Results Medications: Active Medications Generic Name Dose Route Start Last Admin Trade Name Mundo PRN Reason Stop Dose Admin Acetaminophen 325 mg 01/10/25 18:00 01/11/25 05:48 Acetaminophen 325 Mg Tablet PO 325 mg Q6H MONICA Administration Amlodipine Besylate 5 mg 01/10/25 09:00 01/11/25 08:24 Amlodipine Besylate 5 Mg Tablet PO 5 mg DAILY MONICA Administration Apixaban 2.5 mg 01/09/25 09:00 01/11/25 08:24 Apixaban 2.5 Mg Tablet PO 2.5 mg Q12HR MONICA Administration Dextrose 12.5 gm 01/06/25 20:08 Dextrose 50% 25 Gm/50 Ml Syringe IV PUSH PRN PRN Hypoglycemia Protocol Doxycycline Hyclate 100 mg 01/09/25 09:00 01/11/25 08:24 Doxycycline Hyclate 100 Mg Tablet PO 01/21/25 08:59 100 mg DAILY MONICA Administration Glucagon 1 mg 01/06/25 20:08 Glucagon For Inj 1 Mg Vial IM PRN PRN Hypoglycemia Protocol Glucose 15 gm 01/06/25 20:08 Glucose Oral Gel 15 Gm Of Glucse In 37.5 Gm Tube PO PRN PRN Hypoglycemia Protocol Hydrochlorothiazide 12.5 mg 01/08/25 09:00 01/11/25 08:24 Hydrochlorothiazide 12.5 Mg Capsule PO 12.5 mg DAILY MONICA Administration Dextrose 1,000 mls @ 100 mls/hr 01/06/25 20:08 Dextrose 5% 1,000 Ml IVPB PRN PRN Hypoglycemia Protocol Insulin Aspart 3 - 6 units 01/08/25 08:00 01/11/25 08:29 Insulin Aspart (*Bkc) 100 Units/Ml SUB-Q 4 units TIDWM MONICA Administration Protocol Insulin Aspart 8 units 01/09/25 12:00 01/11/25 08:28 Insulin Aspart (*Bkc) 100 Units/Ml SUB-Q 8 units TIDWM MONICA Administration Insulin Glargine 10 units 01/09/25 09:00 01/11/25 08:29 Insulin Glargine (*Bkc) 100 Units/Ml 0.15 units/kg (10 units) 10 units SUB-Q Administration DAILY MONICA Latanoprost 1 drop 01/06/25 18:00 01/10/25 17:26 Latanoprost 0.005% Op Soln 2.5 Ml Btl EACH EYE 1 drop QPM MONICA Administration Losartan Potassium 100 mg 01/07/25 09:00 01/11/25 08:23 Losartan Potassium 100 Mg Tablet PO 100 mg DAILY MONICA Administration Morphine Sulfate 2 mg 01/06/25 14:06 01/07/25 15:24 Morphine Sulfate (*Crx) 2 Mg/Ml Inj IV PUSH 2 mg Q1H PRN Administration Pain Rated 7-10 IF NPO Naloxone HCl 0.1 mg 01/06/25 14:06 Naloxone Hcl 0.4 Mg/Ml Vial IV PUSH Q2M PRN Opiate Reversal Ondansetron HCl 4 mg 01/06/25 14:06 01/10/25 01:54 Ondansetron Inj 4 Mg/2 Ml Vial IV PUSH 4 mg Q4H PRN Administration Nausea And Vomiting Polyethylene Glycol 17 gm 01/07/25 09:00 01/11/25 08:23 Polyethylene Glycol 3350 17 Gm Powd.Pack PO Not Given QAM MONICA Rosuvastatin Calcium 5 mg 01/06/25 21:00 01/10/25 20:25 Rosuvastatin 5 Mg Tablet PO 5 mg HS MONICA Administration Senna/Docusate Sodium 2 tab 01/06/25 17:00 01/11/25 08:23 Senna/Docusate Sodium Tablet PO Not Given BID MONICA Tramadol HCl 25 mg 01/10/25 12:54 Tramadol Hcl (*Crx) 25 Mg Tablet PO Q6H PRN Pain Rated 4-6 Vitamin B Complex 1 cap 01/07/25 09:00 01/11/25 08:24 Vitamin B Complex Capsule PO 1 cap DAILY MONICA Administration Radiology Results: ITS Impressions Knee X-Ray 01/06/25 11:48 IMPRESSION: 1. Recent right total knee arthroplasty. Hip/Pelvis X-Ray 01/08/25 11:03 Impression: 1: Mild symmetric osteoarthritis of the hips. Labs Labs: Laboratory Results - last 24 hr 01/10/25 01/10/25 01/11/25 11:49 16:29 08:20 POC Capillary Glucose 146 H 218 H 255 H 01/11/25 11:32 POC Capillary Glucose 168 H Quality VTE Prophylaxis VTE prophylaxis: pharmacologic ordered
--- NOTE | 2025-01-13 15:34 | PM.PNORT ---
Progress Note: A&P Assessment and Plan (1) Status post total right knee replacement: Code(s): Z96.651 - Presence of right artificial knee joint Status: Acute Assessment and Plan: Labs from yesterday are reviewed. Hemoglobin is 10.7 the same as preop which was 10.9. Creatinine better than preop at 1.08 creatinine clearance 32. AST and ALT are decreasing. Subjective Subjective Date/Time Seen: 01/13/25 15:34 Objective Data Intake/Output Intake/Output: Intake & Output 01/10/25 01/11/25 01/12/25 01/13/25 23:59 23:59 23:59 23:59 Intake Total 580 240 Output Total 600 Balance -20 240 Meds/Results Radiology Results: ITS Impressions Knee X-Ray 01/06/25 11:48 IMPRESSION: 1. Recent right total knee arthroplasty. Hip/Pelvis X-Ray 01/08/25 11:03 Impression: 1: Mild symmetric osteoarthritis of the hips.
--- NOTE | 2025-01-24 15:54 | P.PCNHOL_ITS ---
Holter/Event Monitor Holter/Event Monitor Date of procedure: 01/11/25 Holter/Event Procedure: 3-7 Day Holter Monitor Indications: Dizziness Conclusion: 1. 7 days holter monitor on 01/11/25. 2. Predominant rhythm is sinus rhythm. HR range 54-188 bpm; average HR 81 bpm. 3. There are occasional premature supraventricular complexes, occasional supraventricular couplets, rare supraventricular triplets. There are 318 ep isodes of supraventricular tachycardia with fastest at 188 bpm and longest lasting 16 seconds. 4. There are rare premature ventricular complexes. No ventricular tachycardia. 5. No significant pauses greater than 3 seconds. 6. Patient reports 10 episodes of symptoms of lightheadedenss, abdominal pain, nausea, dizziness which demonstrate sinus rhythm which demonstrate sinus rhythm, HR range 74-108 bpm with 9 episodes with PAC's.
== END 2025-01-11 13:05 | DRG 470 ==
LOC: ANHSURGERY 13:27 → ANH2MED 13:27
PROVIDERS: Internal Medicine; Physician Assistant; Admitting Provider Orthopaedic Surgery; PCP Physician Assistant Medical; Visit Provider Orthopaedic Surgery
PROC: 0SRC0J9 Replacement of Right Knee Joint with Synthetic Substitute, Cemented, Open Approach (ICD-10-PCS; CPT 27447; principal; 2025-01-06 07:30)
DX: M17.0 Bilateral primary osteoarthritis of knee (principal); M25.551 Pain in right hip; I25.10 Atherosclerotic heart disease of native coronary artery without angina pectoris; E11.22 Type 2 diabetes mellitus with diabetic chronic kidney disease; I12.9 Hypertensive chronic kidney disease with stage 1 through stage 4 chronic kidney disease, or unspecified chronic kidney disease; N18.31 Chronic kidney disease, stage 3a; R94.39 Abnormal result of other cardiovascular function study; D72.829 Elevated white blood cell count, unspecified; D64.9 Anemia, unspecified; N63.0 Unspecified lump in unspecified breast; E78.5 Hyperlipidemia, unspecified; H40.9 Unspecified glaucoma; Z66 Do not resuscitate; Z79.84 Long term (current) use of oral hypoglycemic drugs; Z79.899 Other long term (current) drug therapy
CPT/HCPCS: 36415; 73502; 73560; 80048; 80053; 82948; 83735; 85025; 85027; 93242; 97110; 97116; 97161; 97166; 97530; 97535; J0690; A9270; C1713; C1776; G0378; J0166; J0360; J0702; J1010; J1100; J1650; J1741; J1815; J1885; J2003; J2270; J2405; J2704; J2795; J3010; J3373; J3475; J7030; J7050; J7120

== ENCOUNTER 2025-02-15 14:26 | Outpatient (CLI) | payer MEDICARE, SELFPAY ==
--- OUTSIDE RECORDS SUMMARY | 2010-03-06 07:30 | XMS_ITS | Continuity of Care Document ---
Author Organization [employer] [facility] Address [address] [place] [address] Phone Care Team Providers Care Byproducts Extractor Name Role Phone Ximena García Unavailable Unavailable Procedures Procedure Date Office/outpatient Visit, Est Optic Nerve Head Eval IOP Red Less Than 15% W Plan Of Care Feb Office/outpatient Visit, Est Optic Nerve Head Eval IPO Reduced 15% Fundus Photography W/ Report Visual Field Examination(s) Office/outpatient Visit, Est Optic Nerve Head Eval IPO Reduced 15% Eye Exam & Treatment Optic Nerve Head Eval IOP Red Less Than 15% W Plan Of Care Oct IOP Red Less That 15% W Plan Of Care Oct Fundus Photography W/ Report Refraction Optic Nerve Head Eval Visual Field Examination-Professional Fe Visual Field Examination(s) Office/outpatient Visit, Est Optic Nerve Head Eval Eye Exam & Treatment Optic Nerve Head Eval Fundus Photography W/ Report Visual Field Examination-Professional Fe Visual Field Examination(s) Office/outpatient Visit, Est Visual Field Examination(s) Eye Exam & Treatment Refraction Advance Directives Directive Yes / No Effective Date File Name No Information Encounters Encounter Description Practice Location Reason(s) For Visit Diagnoses Date Provider Providers Copied on Encounter Office/outpat ient Visit, [facility], [address] [place] [address] [address], [place], [place], [id number], tel:[phone] [facility] No Information 9-201 0 Raquel Rich [address] , [address], [place], [place], [facility], . tel:[phone] Office/outpat ient Visit, [facility], [address] [place] [address] [address], [place], [place], [address], tel:[phone] [facility] No Information -201 0 Raquel Rich [address] , [address], [place], [facility], . tel:[phone] Referring Provider: Ximena Kidd, [address], [place], [facility]. tel:[phone] [facility], [address] [place] [address] [address], [place], [place], [address], tel:[phone] [facility] No Information 3-201 0 Raqeul Rich [address] , [address], [place], [facility], . tel:[phone] Referring Provider: Ximena Kidd, [address], [place], [facility]. tel:[phone] Office/outpat ient Visit, [facility], [address] [place] [address] [address], [place], [place], [address], tel:[phone] [facility] No Information Feb-2 0-200 9 Raquel Rich [address] , [address], [place], [facility], . tel:[phone] [facility], [address], [place], [place], [address], [place] tel:[phone] [facility] No Information 9 Raquel Bueno. [address] , [address], [place], [facility], . tel:[phone] Referring Provider: Ximena Kidd, [address], [place], [facility]. tel:[phone] [facility], [address] [place] [address] [address], [place], [place], [address], [place] tel:[phone] [facility] No Information 9 Raquel Bueno. [address] , [address], [place], [facility], . tel:[phone] Referring Provider: Ximena Kidd, [address], [place], [facility]. tel:[phone] [facility], [address], [place], [place], [address], [place] tel:[phone] [facility] No Information 9 Raquel Bueno. [address] , [address], [place], [facility], [place]. tel:[phone] Referring Provider: Ximena Kidd, [address], [place], [facility]. tel:[phone] Office/outpat ient Visit, Est [facility], [address], [place], [place], [address], [place] tel:[phone] [facility] No Information 8 Raquel Bueno. [address] , [address], [place], [facility], [place]. tel:[phone] [facility], [address], [place], [place], [address], [place] tel:[phone] [facility] No Information 200 8 Raquel Bueno. [address] , [address], [place], [facility], . tel:[phone] Referring Provider: Ximena Kidd, [address], [place], [facility]. tel:[phone] [facility], [address] [place] [address] [address], [place], [place], [address], [place] tel:[phone] [facility] No Information 8 Raquel Bueno. [address] , [address], [place], [facility], [place]. tel:[phone] Referring Provider: Ximena Kidd, [address], [place], [facility]. tel:[phone] [facility], [address], [place], [place], [address], [place] tel:[phone] [facility] No Information 8 Raquel Bueno. [address] , [address], [place], [facility], [place]. tel:[phone] Referring Provider: Ximena Kidd, [address], [place], [facility]. tel:[phone] Office/outpat ient Visit, Est [facility], [address], [place], [place], [address], [place] tel:[phone] [facility] No Information 2200 7 Raquel Bueno. [address] , [address], [place], [facility], [place]. tel:[phone] [facility], [address], [place], [place], [address], [place] tel:[phone] [facility] No Information 7 Raquel Bueno. [address] , [address], [place], [address], . tel:[phone] Referring Provider: Ximena Kidd, [address], [place], [facility]. tel:[phone] [facility], [address], [place], [place], [address], tel:[phone] [facility] No Information 7 Raquel Bueno. [address] , [address], [place], [address], . tel:[phone] Family History Family Member Type Diagnosis Age At Onset No Information Payers Payer name Insurance type Covered republican ID Authoriza tion(s) [place] [id number] [facility] CI [id number] Social History Type Description Quantity Date Captured Comments Sex Female Smoking Status No Information Chief Complaint And Reason For Visit No Information Reason For Referral Reason For Referral No Information History Of Present Illness Encounter Date Complaint History Of Prese nt Illness No Information Functional Status Date Functional Assessmen t No Information Instructions Date Instruction Additional Infor mation No Information Assessments Type Assessment Date No Information Patient Care Teams Name Effective Dates (start - stop) Status Members No Information
--- NOTE | ~2025-02-15 | US_ITS ---
EXAMINATION: US venous doppler LE RT DATE: 02/15/2025 15:12 INDICATION: Lower limb edema. TECHNIQUE: Grayscale ultrasound images without and with compression and Doppler ultrasound images of the right lower extremity veins were obtained. COMPARISON: None. FINDINGS: The visualized portions of right common femoral vein, profunda (deep) femoral vein, femoral vein, popliteal vein, peroneal veins, posterior tibial veins, and greater saphenous vein outflow are patent. IMPRESSION: 1. No deep venous thrombosis. Reviewed, dictated and finalized at location E.
== END 2025-02-15 14:27 | disposition home or self-care (01) ==
PROVIDERS: PCP Physician Assistant Medical; Visit Provider Orthopaedic Surgery
DX: R79.89 Other specified abnormal findings of blood chemistry (principal); R60.0 Localized edema
CPT/HCPCS: 93971

== ENCOUNTER 2025-03-15 10:15 | Outpatient (RCR) | payer MEDICARE, SELFPAY ==
--- NOTE | 2025-02-14 11:11 | PTOPEVAL1 ---
Assessment and note entered by Radha Kim, PT Evaluation Information Assessment Status Evaluation Diagnosis Stiffness after TKA ICD-10 Condition Codes (PT) Pain in right knee M25.561,Abnormalities of gait and mobility R26.9,Weakness R53.1 Subjective Information Reports foot swells when hanging in sitting but when goes to bed at night the swelling resolves. Was in inpatient rehab at [facility]. Had HH for 3x a week, has been discharged from this. Pt reports is not doing her exercises every hour, only getting 2-3x daily done because of swelling. Reports pain is doing really well with her pain. Hasn't felt pain for the last few weeks unless is walking a long distance. Will get achy and start to feel like it's going to give out. So she will go sit down. Can't stand through a full meal preparation. Was able to walk through parking lot to [facility] and walk in line for food. Only takes Tylenol when she needs too. Currently not climbing steps. Has an upstairs but doesn't have to go up there. Will have family go upstairs for her needs. Reported Pain Level Pain Score 0: Self Report Assessment PT Clinical Summary Pt presents s/p R TKR 01/06/25. She was in inpatient rehab, then discharged home with home health and initiated outpatient services today. She reports she is only doing her exercises 2-3x daily due to increasing swelling. Spent increased time educating patient that she needs to prioritize the stretching every waking hour, but she may also take 10-15 minutes post-stretching to elevate the leg to improve swelling. Overall swelling today is very minimal compared to typical TKR at this phase. She shows good flexion ROM of 110, lacks 10 degrees extension passively. She has fait quads strength at 3-/5 and hamstring at 4/5. She also shows decreased speed and inappropriate gait patterning in her 2w-w. She will benefit greatly from physical therapy in order to address these deficits and improve patient overall function and independence. Plan of Care Interventions Electrical Stimulation,Gait Training,Manual Therapy,Neuro Re-education,Therapeutic Activities, Therapeutic Exercise,Self-Care/Home Management, Other Other Interventions taping PT Services Indicated Yes Treatment Frequency and 3x weekly x 2 weeks, then 2x weekly x 2 weeks per Duration prescription These treatments will address the objective and functional deficits as defined above. The patient will be advanced safely and appropriately in order for the patient to progress towards his/her prior level of function. Additional exercises will be introduced and as well as a comprehensive home exercise program upon discharge, if needed, ?to ensure carryover of functional gains achieved in the clinic. This treatment plan has been reviewed and agreement upon by the patient.
--- NOTE | 2025-02-14 11:12 | OPREHPOC ---
Outpatient Therapy Plan of Care This is a Multidisciplinary Plan of Care that may contain components documented by all disciplines (PT, OT, and ST.) PT Problem 1 PT Problem #1 Knowledge Deficit PT Goal 1 Goal / Goal Update Pt will be independent in HEP Pt will verbalize understanding of diagnosis and prognosis Target Visit 10 PT Problem 2 PT Problem #2 Impaired Range of Motion PT Goal 1 Goal / Goal Update Pt will demonstrate active extension on right knee 5 degrees to show improved terminal knee extension Target Visit 10 PT Goal 2 Goal / Goal Update Pt will show active ROM of 0-125 for improved functional use of right knee Target Visit 20 PT Problem 3 PT Problem #3 Impaired Strength PT Goal 1 Goal / Goal Update Pt will demonstrate 3/5 quads strength for improved mobility Target Visit 10 PT Goal 2 Goal / Goal Update Pt will demonstrate 4/5 quads strength for improved mobility and ambulation Target Visit 20 PT Problem 4 PT Problem #4 Impaired Gait PT Goal 1 Goal / Goal Update Pt will demonstrate 2 min walk test with LRAD 120 ft or greater for more functional gait Target Visit 10 PT Goal 2 Goal / Goal Update Pt will show ability to ambulate without AD safely and functionally Target Visit 20
--- NOTE | 2025-03-08 15:17 | PTOPPROG ---
Assessment and note entered by Radha Kim, PT Evaluation Information Assessment Status Re-evaluation Diagnosis Stiffness after TKA, Trochanteric pain R hip ICD-10 Condition Codes (PT) Pain in right hip M25.551,Pain in right knee M25. 561,Abnormalities of gait and mobility R26.9, Weakness R53.1 Subjective Information Pt reports didn't feel good on Friday or Friday so didn't get her exercises done but once yesterday. Pt reports there are times is painful but will push on the top of it and it feels better. States will notice knee some swelling and will go sit down, but reports is up and down all day. Pt reports right hip woke her up 3 times last night, lays on that side and feels like bone wants to push through. Also depends on how is sitting in the chair. Received a shot for her right hip before her surgery, ~ 3 months. Has not used ice for her hip either. If her hip is really bad, will take a tylenol arthritis. Assessment PT Clinical Summary Pt has been attending therapy consistently for her total knee replacement for seven visits with instruction to focus on chair knee flexion and knee extension exercises solely. She is showing independence in these though she reports the last few days not getting them done as directed due to illness. However in her previous sessions she also reports she is not performing her stretches as directed for various reasons. Importance of these stretches has been reinforced multiple times. Today right hip is bein added into her plan of care with the prescription from ortho being received and patient appearing more limited in mobility due to hip. she shows decreased ROM of the hip joint itself in flexion, extension and external rotation especially as well as gluteus medius weakness. Initiated hip extension stretch in supine and modalities for right hip today. Will continue PT for total knee replacement in addition to stretching, strengthening and modalities for right hip to improve overall mobility and quality of life. Plan of Care Interventions Electrical Stimulation,Gait Training,Hot Pack/Cold Pack,Manual Therapy,Neuro Re-education,Patient/ Caregiver Education,Therapeutic Activities, Therapeutic Exercise,Self-Care/Home Management, Other Other Interventions US hip only, HP/CP hip only PT Services Indicated Yes Treatment Frequency and 2x weekly x 10 visits Duration These treatments will address the objective and functional deficits as defined above. The patient will be advanced safely and appropriately in order for the patient to progress towards his/her prior level of function. Additional exercises will be introduced and as well as a comprehensive home exercise program upon discharge, if needed, ?to ensure carryover of functional gains achieved in the clinic. This treatment plan has been reviewed and agreement upon by the patient.
--- NOTE | 2025-03-17 09:54 | PTOPDC ---
Assessment and note entered by Radha Kim, PT Evaluation Information Assessment Status Discharge - Pt Not Present Diagnosis Stiffness after TKA, Trochanteric pain R hip ICD-10 Condition Codes (PT) Pain in right hip M25.551,Pain in right knee M25. 561,Abnormalities of gait and mobility R26.9, Weakness R53.1 Reported Pain Level Pain Score 2,2: Self Report Assessment PT Clinical Summary Pt called and stated her ortho said she didn't have to come to therapy any longer. Pt had history of not completing her exercises as instructed. Therapy sessions focused on chair flexion stretch and extension stretch as directed by prescription and surgeon. Additional prescription for right hip trochanteric pain syndrome was initiated recently , following prescription instructions as well. Chart review of most recent visit with ortho office reported agreeing with patient that therapy was working her too hard and causing soreness and pain, thus was discharged from therapy with instruction to continue home exercises. The note did not address the right hip trochanteric pain syndrome directly. Given patients' general debility, her resistance to relinquish her walker, and that she is mobile, it is understandable to allow this to be her new baseline without focusing on further progression. Thus patient is being discharged per request and per ortho office chart review confirmation. Plan of Care PT Services Indicated No
== END 2025-03-17 11:12 | disposition home or self-care (01) ==
LOC: ANHHIPT 10:15
PROVIDERS: PCP Physician Assistant Medical; Visit Provider Orthopaedic Surgery
DX: Z47.1 Aftercare following joint replacement surgery (principal); M17.11 Unilateral primary osteoarthritis, right knee; M70.61 Trochanteric bursitis, right hip; Z96.651 Presence of right artificial knee joint
CPT/HCPCS: 97014; 97110; 97116; 97161; 97164; 97530; 97750; G0283